=== PATIENT | male | born 1955 | race Caucasian/White ===

== ENCOUNTER 2019-05-04 13:08 | Outpatient (CLI) | payer MEDICARE, SELFPAY ==
--- NOTE | 2019-05-04 13:56 | ECHO_ITS ---
Patient Info Name: Ernesto Garvey Age: 63 years : 1955 Gender: Male Ht: 69 in Wt: 199 lbs BSA: 2.12 m2 HR: 82 bpm BP: 145 / 79 mmHg Technical Quality: Good Exam Date: 05/04/2019 2:02 PM Exam Location: [facility] Patient Status: Outpatient Admit Date: 05/04/2019 Staff Ordering Physician: Matthew Castano DO Optician Manager: Monica Renner RDCS Attending Provider: Matthew Castano DO Referring Physician: Eyad HORTON; Exam Type: CA echo doppler color flow Study Info Indications R06.09 - Other forms of dyspnea Complete two-dimensional, color flow and Doppler transthoracic echocardiogram is performed. Summary 1. Left ventricular chamber dimension is normal. 2. Left ventricular systolic function is normal, estimated at 60-65%. 3. Ventricular septum is sigmoid shaped. 4. The left ventricular diastolic function is grade I diastolic dysfunction. 5. E/e' 9 is minimally elevated. 6. Global longitudinal strain is abnormal at -15.9%. 7. Left atrial chamber dimension is mildly enlarged. 8. There is trace mitral valve regurgitation. 9. No pulmonary hypertension, estimated pulmonary arterial systolic pressure is 21 mmHg. Left Ventricle Ventricular septum is sigmoid shaped. E/e' 9 is minimally elevated. Global longitudinal strain is abnormal at -15.9%. Left ventricular chamber dimension is normal. Left ventricular systolic function is normal, estimated at 60-65%. The left ventricular diastolic function is grade I diastolic dysfunction. Right Ventricle Right ventricular chamber dimension is normal. Right ventricular systolic function is normal. Left Atria Left atrial chamber dimension is mildly enlarged. Right Atria Right atrial chamber dimension is normal. Aortic Valve The aortic valve is trileaflet. There is no aortic valve stenosis. There is no aortic valve regurgitation. Pulmonic Valve There is no pulmonic regurgitation. Mitral Valve There is no mitral valve stenosis. There is trace mitral valve regurgitation. Tricuspid Valve There is no tricuspid valve regurgitation. No pulmonary hypertension, estimated pulmonary arterial systolic pressure is 21 mmHg. Pericardium/Pleural There is no pericardial effusion. Inferior Vena Cava Normal inferior vena cava with >50% collapse upon inspiration consistent with normal right atrial pressure, 5 mmHg. Aorta The aortic root size at the sinus of Valsalva is normal. Left Ventricular Outflow Tract Name Value Normal LVOT 2D LVOT Diameter 1.9 cm LVOT Doppler LVOT Peak Velocity 117 cm/s LVOT Peak Gradient 5 mmHg LVOT Mean Gradient 3 mmHg LVOT VTI 23 cm LVOT VTI/AV VTI Ratio 0.7 LVOT Stroke Volume 61 ml LVOT CO 4.7 l/min LVOT CI 2.2 l/min/m2 Pulmonic Valve Name Value Normal ---------
--- NOTE | 2019-05-10 14:42 | WPDPFTINT ---
PFT Interpretation PFT Interpretation: This PFT met all criteria for ATS standards and reproducibility FEV/FVC post bronchodilator 77% FEV1 91% FVC 82% TLC 84% RV 75% RV/TLC 33% DLCO 86% when adjusted for alveolar volume but not adjusted for hemoglobin Flow volume loops showed normal Impression: This is a normal PFT. Clinical correlation is advised.
== END 2019-05-04 13:09 | disposition home or self-care (01) ==
LOC: ANHCARD 13:10
PROVIDERS: PCP Family Medicine; Visit Provider Internal Medicine Cardiovascular Disease
DX: R06.09 Other forms of dyspnea (principal)
CPT/HCPCS: 93306; 94375; 94726; 94729

== ENCOUNTER 2019-05-08 02:47 | Day surgery (SDC) | payer MEDICARE, SELFPAY ==
[2019-05-07 11:14] VITALS: BMI 29.2
[2019-05-08] VITALS (10 sets, daily range): BP systolic 110–146; BP diastolic 51–90; PULSE 64–94; RESP 14–20; TEMP 36.6–36.8; O2SAT 92–100
[2019-05-08 08:52] LABS: Basophils Absolute Auto 0.1 K/mm3 (0.0-0.1); Basophils Percent Auto 0.7 % (0.2-1.2); Eosinophils Absolute Auto 0.5 K/mm3 (0-0.3); Eosinophils Percent Auto 6.2 % (0-4.4); Hematocrit 42.9 % (42.0-52.0); Hemoglobin 14.8 g/dL (14.0-18.0); Immature Granulocyte Absolute 0.04 K/mm3 (0.00-0.031); Immature Granulocyte Percent A 0.5 % (0-0.5); Lymphocytes Absolute Auto 2.03 K/mm3 (0.9-3.2); Lymphocytes Percent Auto 26.8 % (18.3-44.2); Mean Corpuscular HGB Conc 34.5 g/dl (32-36); Mean Corpuscular Hemoglobin 29.9 pg (26-34); Mean Corpuscular Volume 86.7 fl (80-100); Monocytes Absolute Auto 0.6 K/mm3 (0.1-0.6); Monocytes Percent Auto 8.3 % (2.6-8.5); Neutrophils Absolute Auto 4.4 K/mm3 (1.3-6.7); Neutrophils Percent Auto 57.5 % (45.5-73.1); Platelet Count Result 245 k/mm3 (150-375); Red Blood Count 4.95 M/mm3 (4.6-6.20); Red Cell Distribution Width 12.9 % (11.5-14.5); White Blood Count 7.6 K/mm3 (4.5-10.0)
[2019-05-08 09:01] LABS: Prothrombin Time 12.8 Seconds (11.1-14.7)
[2019-05-08 09:05] LABS: Blood Urea Nitrogen 19 mg/dL (9-20); Carbon Dioxide 24 mmol/L (22-30); Chloride 105 mmol/L (98-107); Estimated CRCL calculation 80 ml/min; Estimated Glomerular Filt Rate > 60; Glucose 132 mg/dL (75-110); Sodium 141 mmol/L (137-145)
--- NOTE | 2019-05-08 09:21 | WPDMODSED ---
Moderate Sedation Note-Pt Data Patient Data Diagnosis: Exertional chest pain consistent with angina Abnormal nuclear stress test Diabetes Present Complaint: 64-year-old man with diabetes and dyslipidemia evaluated recently for exertional chest pain which is experiencing for about a year or more. Patient recently apparently brought these symptoms to his physician's attention and noninvasive testing shows an inferolateral perfusion defect compatible with a previous infarction as well as some ischemia. Procedure to be performed/Plan: Left heart catheterization Allergies Allergy/AdvReac Type Severity Reaction Status Date / Time No Known Drug Allergies Allergy Unknown Unknown Unverified 03/31/19 08:59 Home Medications Medication Instructions Recorded Confirmed Type atorvastatin 03/31/19 04/22/19 History fenofibrate micronized mg 03/31/19 04/22/19 History flu vac [id number] 36mos up(PF) IM 03/31/19 04/22/19 History [Afluria Qd (3yr up)(PF)] hydrocodone-acetaminophen tablet 03/31/19 04/22/19 History insulin lispro 100 unit/mL 1 unit SUB-Q ONCE 04/01/19 04/22/19 History subcutaneous pen clopidogrel 75 mg tablet 75 mg PO DAILY #90 tablet 04/08/19 04/22/19 Rx empagliflozin 25 mg tablet 25 mg PO QAM #30 tablet 04/08/19 04/22/19 Rx insulin glargine 100 unit/mL (3 10 unit SUBCUT .QHS #3 ml 04/08/19 04/22/19 Rx mL) subcutaneous pen aspirin 81 mg tablet,delayed 81 mg PO DAILY 04/22/19 04/22/19 History release lisinopril 10 mg tablet 10 mg PO DAILY #90 tablet 04/29/19 Rx Current Medications: Active Medications Sodium Chloride (Normal Saline Iv) 500 mls @ 100 mls/hr IV CONT .Q5H TY Sedation/Anesthesia: No previous sedation/anesthesia problems (including family history). [facility] Past Medical History Medical History (Updated 04/22/19 @ 11:36 by Matthew Castano DO) Arthritis Chronic pain disorder CVA (cerebral vascular accident) Diabetes mellitus Diabetic polyneuropathy associated with type 2 diabetes mellitus DISH (diffuse idiopathic skeletal hyperostosis) 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) hypertension alf (current) use of insulin Mixed hyperlipidemia Peripheral neuropathy Pneumonia Psoriasis Rotator cuff arthropathy of right shoulder Rotator cuff tear, right UTI (urinary tract infection) Social History Social History Smoking status: Former smoker Tobacco type: cigarettes Second hand tobacco smoke exposure: No Smoking end date: 03/18/94 Alcohol intake: never Substance use: never Substance use type: does not use Gender identity (if verbalized by the patient): Male Mod Sed Physical Exam Physical Exam Pre Procedural Exam: Normal: Neck, Throat, Airway, Lungs, Heart Size, Heart Rate, Heart Rhythm, Neuro Exam and Extremities and Variation: Appearance (White male appearing somewhat older than his stated age with a long unkempt nation) Hours since solid foods: 12 Hours since liquid intake: 12 Internal Medicine - PN: Obj Da Vital Signs Vital Signs: Vital Signs - 24 hr 05/08/19 08:52 Temperature 36.8 C Pulse Rate 80 Respiratory Rate 14 Blood Pressure 132/90 Pulse Oximetry 100 Intake/Output Intake/Output: Intake & Output 05/05/19 05/06/19 05/07/19 05/08/19 23:59 23:59 23:59 23:59 Intake Total 0 Output Total 0 Balance 0 Meds/Results Medications: Active Medications Generic Name Dose Route Start Last Admin Trade Name Freq PRN Reason Stop Dose Admin Sodium Chloride 500 mls @ 100 mls/hr 05/08/19 06:00 Normal Saline Iv IV CONT .Q5H TY Labs CBC & Chem 7: 05/08/19 08:43 05/08/19 08:43 Labs: Laboratory Results - last 24 hr 05/08/19 05/08/19 05/08/19 08:43 08:43 08:43 WBC 7.6 RBC 4.95 Hgb 14.8 Hct 42.9 MCV 86.7 MCH 29.9 MCHC 34.5 RDW 12.9 Plt Count 245 MPV 10.0 Immature Gran % (Auto) 0.5 Neut % (Auto) 57.5 Lymph % (Auto)
--- NOTE | 2019-05-08 10:20 | WPDCARDPROC ---
Cardiac Cath Procedure Note Date of procedure:: 05/08/19 Performing physician:: Gibran Franklin MD Indication:: Exertional symptoms compatible with and typical of angina, symptoms appear to be chronic abnormal nuclear stress test diabetes Brief clinical history:: 64-year-old diabetic patient with a chronic history of exertional chest pain which is relatively typical of an suggestive of angina. He has had the symptoms for at least 1-2 years by his history. The patient had a outpatient nuclear stress test suggesting evidence of a previous inferior infarction as well as some inferolateral ischemia. In this setting angiography was recommended Procedure Procedure performed:: left heart catheterization with left ventriculography and coronary angiography coronary IFR determination Angio-Seal to right femoral artery Sedation/Medication given:: fentanyl 50 mg Versed 2 mg case start time 9:43 a.m. case end time 10:15 a.m. sedation provided by Abel Michaud RN, trained observer Access site:: right femoral artery Estimated blood loss:: 20-30 cc Procedure note:: patient was brought to the cardiac catheterization lab in the postabsorptive state the right femoral triangle was prepared and draped in the usual fashion. Anesthesia was provided with 1% lidocaine infiltrated locally. Using the modified Seldinger technique a 5 [place] sheath was placed into the common femoral artery and left heart catheterization was then carried out. A 5 [place] angle pigtail catheter was used to document left-sided hemodynamics and to injected LV g in the GRAY projection. Following this I used a standard 5 [place] FL4 catheter to inject the left coronary artery and a JR4 catheter to inject the right coronary artery. Following this the cineangiograms were reviewed and I recommended performing a coronary IFR determination because of Left main disease of uncertain significance. Findings:: Central aortic pressure is 1 for 48 or end-diastolic pressure 14 there is no gradient on pullback across the aortic valve. Left ventricle is modestly enlarged there is a discrete segment of akinesis in the mid portion of the inferior wall the remainder of the LV contracts well global ejection fraction of 50-55% the left main coronary artery is large in caliber there is a stenosis in the distal aspect of the left main at the LAD/circumflex bifurcation. In most views this stenosis appears to be 40-50% and not likely to be flow limiting. The LAD is a howfosho-mx-nnezu caliber artery extending down to around the apex the LAD itself is mild atherosclerotic irregularities but no apparent flow-limiting lesions. There is a small severely diseased high diagonal branch with 90-95% diffuse stenosis. Circumflex is a large caliber vessel which has ostial stenosis that appears to be somewhat hazy extending from the distal left main disease this appears to be probably a 70% ostial circumflex stenosis angiographically. The major marginal branch is a bifurcating vessel with 90-95% diffuse stenosis in both vessels. There is a distal posterior circumflex branch after this which is free of significant lesions. There is left to right collateral filling seen to the RPDA. The right coronary artery is medium in caliber and appears to have been dominant to the posterior circulation the right coronary artery is 100% chronically occluded in the 2nd portion. As detailed above the RPDA does receive [id number]-[id number] collateral filling. Following completion of angiography and review of the cineangiograms I elected to measure IFR in the LAD because of the left main disease. IFR measured 0.80 Assessment and Plan Additional Plan 64-year-old gentleman with diabetes and chronic exertional angina. Angiographically today found to have severe multivessel coronary disease with angiographically moderate left main disease which is clearly flow limiting by coronary IFR determination. 90% diffuse stenosis in a high d
--- NOTE | 2019-05-08 14:33 | SUR.PHASEII ---
1415 Patient ambulated to bathroom and then to the chair. no signs of bleeding or hematoma noted, will continue to monitor.
--- NOTE | 2019-05-08 15:40 | SUR.PHASEII ---
1530-pt given D/C orders and instructions. Questions answered and verbalized understanding. Given Angioseal information and CD for surgery consult. Groin soft and non-tender, no evidence of bleeding or hematoma noted. Weak right pedal pulse noted, unchanged from before the procedure. Taken via wheelchair to waiting vehicle. No distress noted or verbalized at time of departure.
== END 2019-05-08 15:30 | disposition home or self-care (01) ==
PROVIDERS: PCP Family Medicine; Visit Provider Specialist
PROC: 4A023N7 Measurement of Cardiac Sampling and Pressure, Left Heart, Percutaneous Approach (ICD-10-PCS; CPT 93452; principal; 2019-05-08 10:00)
PROC: 4A033BC Measurement of Arterial Pressure, Coronary, Percutaneous Approach (ICD-10-PCS; CPT 93571; 2019-05-08 10:00)
DX: I25.10 Atherosclerotic heart disease of native coronary artery without angina pectoris (principal); R94.39 Abnormal result of other cardiovascular function study; R07.89 Other chest pain; I10 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) hypertension; E11.40 Type 2 diabetes mellitus with diabetic neuropathy, unspecified; E78.2 Mixed hyperlipidemia; M48.10 Ankylosing hyperostosis [Forestier], site unspecified; M19.90 Unspecified osteoarthritis, unspecified site; Z79.4 Long term (current) use of insulin; Z86.73 Personal history of transient ischemic attack (TIA), and cerebral infarction without residual deficits; Z87.891 Personal history of nicotine dependence; Z79.02 Long term (current) use of antithrombotics/antiplatelets; Z79.82 Long term (current) use of aspirin
CPT/HCPCS: 36415; 80048; 85025; 85610; 93458; 93571; C1760; C1769; C1887; C1894; G0269; J0583; J1644; J2250; J3010; J7040

== ENCOUNTER 2019-06-02 12:12 | Outpatient (CLI) | payer MEDICARE, SELFPAY ==
--- NOTE | ~2019-06-02 | CT_ITS ---
EXAMINATION: CT chest wo con DATE: 06/02/2019 13:02 INDICATION: Coronary artery disease TECHNIQUE: Computed tomography (CT) of the chest was performed without intravenous contrast. The dose -length product (DLP) was 356.47 mGy-cm. 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 COMPARISON: 11/14/2015 FINDINGS: The thoracic aorta is unremarkable within the limitations of noncontrast examination. Coron craig artery atherosclerosis is noted. The heart size is normal. There is mild dependent atelectasis. T he lungs are free of focal airspace opacities. There are no pathologically enlarged thoracic lymph no lindy. Calcified pulmonary nodules are consistent with old granulomatous disease. There are bridging os teophytes at multiple levels in the spine, consistent with diffuse idiopathic skeletal hyperostosis ( DISH). IMPRESSION: 1. Calcified coronary artery atherosclerosis. Reviewed, dictated and finalized at location A.
--- NOTE | ~2019-06-02 | US_ITS ---
EXAMINATION: US carotid duplex BI DATE: 06/02/2019 13:05 INDICATION: Preoperative evaluation. Right common carotid atherosclerosis. Coronary artery disease. TECHNIQUE: Grayscale, color Doppler, and pulsed Doppler images of the cervical carotid arteries were obtained. The degree of vessel stenosis is placed in one of the following categories: normal, <50%, 5 0-69%, >=70% but less than near-occlusion, near-occlusion, or total occlusion. Note that percent sten osis relative to normal distal artery lumen diameter is indirectly measured from velocity measurement s as described by Gonzales, et al. Radiology 2003; 229:340-346. COMPARISON: None. FINDINGS: RIGHT: The right common carotid artery (CCA) peak systolic velocity (PSV) is 98 cm/s. The right internal car otid artery (ICA) PSV is 283 cm/s. The right ICA end-diastolic velocity (EDV) is 112 cm/s. The right ICA/CCA PSV ratio is 2.9. Grayscale and color Doppler images yield an estimate of >=70% (but less dion n near occlusion) diameter reduction from plaque in the ICA. The external carotid artery (ECA) PSV is 130 cm/s. There is antegrade flow in the right vertebral artery. LEFT: The left CCA PSV is 164 cm/s. The left ICA PSV is 120 cm/s. The left ICA EDV is 44 cm/s. The left ICA /CCA PSV ratio is 0.7. Grayscale and color Doppler images yield an estimate of <50% diameter reductio n from plaque in the ICA. The ECA PSV is 143 cm/s. There is antegrade flow in the left vertebral jenniffer ry. IMPRESSION: 1. >=70% (but less than near occlusion) stenosis in the right internal carotid artery. 2. <50% stenosis in the left internal carotid artery. Reviewed, dictated and finalized at location A.
== END 2019-06-02 12:13 | disposition home or self-care (01) ==
PROVIDERS: PCP Family Medicine
DX: I25.118 Atherosclerotic heart disease of native coronary artery with other forms of angina pectoris (principal); I25.10 Atherosclerotic heart disease of native coronary artery without angina pectoris; I65.23 Occlusion and stenosis of bilateral carotid arteries
CPT/HCPCS: 71250; 93880

== ENCOUNTER 2019-10-08 14:03 | Outpatient (CLI) | payer MEDICARE, SELFPAY ==
[2019-10-08 14:46] LABS: Basophils Percent Auto 0.4 % (0.2-1.2); Eosinophils Absolute Auto 0.3 K/mm3 (0-0.3); Eosinophils Percent Auto 2.9 % (0-4.4); Hematocrit 46.2 % (42.0-52.0); Hemoglobin 15.6 g/dL (14.0-18.0); Immature Granulocyte Absolute 0.04 K/mm3 (0.00-0.031); Immature Granulocyte Percent A 0.4 % (0-0.5); Lymphocytes Absolute Auto 2.54 K/mm3 (0.9-3.2); Lymphocytes Percent Auto 26.7 % (18.3-44.2); Mean Corpuscular HGB Conc 33.8 g/dl (32-36); Mean Corpuscular Hemoglobin 29.7 pg (26-34); Mean Platelet Volume 9.8 fl (7.4-10.4); Monocytes Absolute Auto 0.8 K/mm3 (0.1-0.6); Monocytes Percent Auto 8.8 % (2.6-8.5); Neutrophils Absolute Auto 5.8 K/mm3 (1.3-6.7); Neutrophils Percent Auto 60.8 % (45.5-73.1); Platelet Count Result 249 k/mm3 (150-375); Red Blood Count 5.25 M/mm3 (4.6-6.20); Red Cell Distribution Width 12.8 % (11.5-14.5); White Blood Count 9.5 K/mm3 (4.5-10.0)
[2019-10-08 14:58] LABS: Alanine Aminotransferase 35 U/L (4-50); Albumin Level 4.6 g/dL (3.5-5.1); Alkaline Phosphatase 85 U/L (38-126); Anion Gap 15.2 mmol/L (7-16); Aspartate Amino Transferase 35 U/L (17-59); Bilirubin,Total 0.7 mg/dL (0.2-1.3); Blood Urea Nitrogen 23 mg/dL (9-20); Calcium 9.2 mg/dL (8.4-10.2); Carbon Dioxide 23 mmol/L (22-30); Chloride 105 mmol/L (98-107); Estimated Glomerular Filt Rate > 60; Glucose 106 mg/dL (75-110); Potassium 4.2 mmol/L (3.4-5.0); Sodium 139 mmol/L (137-145)
== END 2019-10-08 14:04 | disposition home or self-care (01) ==
LOC: ANHLAB 14:05
PROVIDERS: PCP Family Medicine; Visit Provider Physician Assistant
DX: E78.2 Mixed hyperlipidemia (principal); I10 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) hypertension; E11.42 Type 2 diabetes mellitus with diabetic polyneuropathy; Z79.4 Long term (current) use of insulin
CPT/HCPCS: 36415; 80053; 83036; 85025

== ENCOUNTER 2020-05-12 06:40 | Outpatient (CLI) | payer MEDICARE, SELFPAY ==
[2020-05-12 07:25] LABS: Basophils Percent Auto 0.5 % (0.2-1.2); Eosinophils Absolute Auto 0.4 K/mm3 (0-0.3); Eosinophils Percent Auto 5.5 % (0-4.4); Hematocrit 41.3 % (42.0-52.0); Hemoglobin 14.3 g/dL (14.0-18.0); Immature Granulocyte Absolute 0.04 K/mm3 (0.00-0.031); Immature Granulocyte Percent A 0.5 % (0-0.5); Lymphocytes Absolute Auto 2.22 K/mm3 (0.9-3.2); Lymphocytes Percent Auto 30.3 % (18.3-44.2); Mean Corpuscular HGB Conc 34.6 g/dl (32-36); Mean Corpuscular Hemoglobin 30.6 pg (26-34); Mean Corpuscular Volume 88.4 fl (80-100); Monocytes Absolute Auto 0.7 K/mm3 (0.1-0.6); Monocytes Percent Auto 9.4 % (2.6-8.5); Neutrophils Absolute Auto 3.9 K/mm3 (1.3-6.7); Neutrophils Percent Auto 53.8 % (45.5-73.1); Platelet Count Result 246 k/mm3 (150-375); Red Blood Count 4.67 M/mm3 (4.6-6.20); Red Cell Distribution Width 12.8 % (11.5-14.5); White Blood Count 7.3 K/mm3 (4.5-10.0)
[2020-05-12 07:38] LABS: Alanine Aminotransferase 33 U/L (4-50); Albumin Level 4.1 g/dL (3.5-5.1); Alkaline Phosphatase 96 U/L (38-126); Anion Gap 8 mmol/L (8-16); Aspartate Amino Transferase 31 U/L (17-59); Bilirubin,Total 0.6 mg/dL (0.2-1.3); Blood Urea Nitrogen 16 mg/dL (9-20); Calcium 9.1 mg/dL (8.4-10.2); Carbon Dioxide 26 mmol/L (22-30); Chloride 107 mmol/L (98-107); Cholesterol 152 mg/dL (0-200); Estimated Glomerular Filt Rate > 60; Glucose 185 mg/dL (75-110); HDL Direct 47 mg/dL; Potassium 4.4 mmol/L (3.4-5.0); Sodium 141 mmol/L (137-145); Triglycerides 142 mg/dL (<150)
[2020-05-12 07:49] LABS: LDL Cholesterol Direct 80 mg/dL
[2020-05-12 08:05] LABS: Hemoglobin A1C 8.2 % (<5.7)
== END 2020-05-12 06:41 | disposition home or self-care (01) ==
PROVIDERS: PCP Family Medicine; Visit Provider Physician Assistant
DX: E11.42 Type 2 diabetes mellitus with diabetic polyneuropathy (principal); I10 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) hypertension; E78.2 Mixed hyperlipidemia
CPT/HCPCS: 36415; 80053; 80061; 83036; 85025

== ENCOUNTER 2020-08-12 14:20 | Outpatient (CLI) | payer MEDICARE, SELFPAY ==
[2020-08-12 14:48] LABS: Alanine Aminotransferase 29 U/L (4-50); Albumin Level 4.6 g/dL (3.5-5.1); Alkaline Phosphatase 101 U/L (38-126); Anion Gap 9 mmol/L (8-16); Aspartate Amino Transferase 34 U/L (17-59); Bilirubin,Total 0.4 mg/dL (0.2-1.3); Blood Urea Nitrogen 22 mg/dL (9-20); Calcium 9.5 mg/dL (8.4-10.2); Carbon Dioxide 28 mmol/L (22-30); Chloride 106 mmol/L (98-107); Estimated Glomerular Filt Rate > 60; Glucose 175 mg/dL (75-110); Potassium 4.7 mmol/L (3.4-5.0); Sodium 143 mmol/L (137-145)
[2020-08-12 15:11] LABS: Creatinine Urine 60.1 mg/dL
[2020-08-12 15:12] LABS: Hemoglobin A1C 8.4 % (<5.7)
[2020-08-12 15:16] LABS: MALB Creatinine Ratio 12.1 mg/g (0-30); Microalbumin Urine Random 7.3 mg/L (0-16.7)
== END 2020-08-12 14:21 | disposition home or self-care (01) ==
PROVIDERS: PCP Family Medicine; Visit Provider Family Medicine
DX: E11.9 Type 2 diabetes mellitus without complications (principal); I10 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) hypertension
CPT/HCPCS: 36415; 80053; 82043; 83036

== ENCOUNTER 2020-10-18 14:50 | Emergency (ER) | payer MEDICARE, SELFPAY ==
[2020-10-18 14:52] VITALS: BP 149/67; PULSE 71; RESP 18; TEMP 36.9; O2SAT 99
--- NOTE | 2020-10-18 15:54 | PC.NURSE ---
pt's spouse ambulated to intake desk from outside asking how much longer will it be until he is seen.Informed her there were a still people in front of him. Spouse stated she was going to take him to [facility]. Pt ambulated out of ED with steady gait. .
== END 2020-10-18 15:54 | disposition left against medical advice (07) ==
LOC: ANHED 16:10
PROVIDERS: PCP Family Medicine
DX: T23.052A Burn of unspecified degree of left palm, initial encounter (principal)
CPT/HCPCS: 99199

== ENCOUNTER 2020-10-18 17:33 | Emergency (ER) | payer MEDICARE, SELFPAY ==
[2020-10-18 17:47] VITALS: BP 136/67; PULSE 77; RESP 20; TEMP 37.2; O2SAT 99
--- NOTE | 2020-10-18 17:49 | ED.BURNSMOKE ---
HPI - Burn/Smoke Inhalation General Chief complaint: Burn/Smoke Inhalation Stated complaint: burnt hand Source: patient and RN notes reviewed Mode of arrival: ambulatory Limitations: no limitations History of Present Illness HPI Narrative: Patient accidentally burned his left hand on muffler from a lawnmower. He put some ice on it. Complaint: burn Onset (ago): hour(s) (4) Smoke Inhalation: none Place: home Location - Extremities: Left: hand Severity: mild Associated symptoms: denies other symptoms Related Data Home Medications Medication Instructions Recorded Confirmed aspirin 81 mg tablet,delayed 81 mg PO DAILY 04/22/19 10/18/20 release Allergies Allergy/AdvReac Type Severity Reaction Status Date / Time No Known Drug Allergies Allergy Unknown Unknown Verified 10/18/20 14:56 Review of Systems Review of Systems: All systems reviewed & are unremarkable except as noted in HPI and below Constitutional: Constitutional: Denies chills and Denies fever(s) PMFSH Past Medical History Medical History (Updated 10/18/20 @ 18:00 by Richard Kong MD) Arthritis Chronic pain disorder CVA (cerebral vascular accident) Diabetes mellitus Diabetic polyneuropathy associated with type 2 diabetes mellitus DISH (diffuse idiopathic skeletal hyperostosis) 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 Mixed hyperlipidemia Peripheral neuropathy Pneumonia Psoriasis Rotator cuff arthropathy of right shoulder Rotator cuff tear, right UTI (urinary tract infection) Surgical History Surgical History (Updated 10/18/20 @ 17:58 by Richard Kong MD) H/O rotator cuff surgery right History of cardiac catheterization History of carpal tunnel release History of mandibular surgery Family History Family History Father Patient's father is Social History Social History Social History: Smoking packs per day: 3 Smoking cigarettes per day: 60.0 Years smoked: 20 Smoking pack-years: 60.00 Smoking status: Former smoker Tobacco type: cigarettes Second hand tobacco smoke exposure: No Smoking end date: 03/18/94 Alcohol intake: never Substance use: never Substance use type: does not use Gender identity (if verbalized by the patient): Male Exam Const: General: healthy appearing, no acute distress and alert Nutritional Appearance: well nourished and obese centrally obese Orientation/consciousness: patient oriented x3 HENMT: Head: normal to inspection Ears: external ears normal Face and sinus: normal facial exam Eyes: Conjunctivae: conjunctivae normal Pupils: Equal, round and reactive pupils present EOM: EOMs intact bilaterally Neck: Neck: normal visual inspection Resp: Effort & Inspection: normal respiratory effort Auscultation: clear to auscultation bilaterally Cardio: Rate: regular rate Rhythm: regular rhythm GI: GI Palp: Yes Soft to palpation and No Tenderness to palpation present (GI) Auscultation: normal bowel sounds Back/Spine/Pelvis: Cervical Spine: cervical ROM normal Thoracic/Lumbar Spine: thoraco-lumbar ROM normal Skin: Wounds: wounds noted (1st degree byrd on 3rd, 4th and 5th finger tips) 2nd degree to left palm size (4 X 3 cm), margins well defined and other (Fluid filled blister) Neuro: General: patient oriented x3, moves all extremities, no meningeal signs and no focal motor deficits Speech: normal speech Gait exam (Neuro): Normal gait present Extrem: General: normal to inspection and no clubbing, cyanosis or edema Psych: Appearance: grossly normal and well kempt Mental Status: mental status grossly normal Affect: normal affect Attitude: cooperative Thought content: Yes Normal thought content present Discharge Plan Discharge Clinical Impression: Second degree burn of back of left hand Qualifiers:
[2020-10-18 18:05] VITALS: BP 133/75; PULSE 75; RESP 20; O2SAT 98
[2020-10-18] MEDS: SILVER SULFADIAZINE 1% CR 50 GM JAR (*BKC) 1 APPLIC TOPICAL (18:05)
== END 2020-10-18 18:10 | disposition home or self-care (01) ==
PROVIDERS: Emergency Provider Emergency Medicine; PCP Family Medicine
DX: T23.262A Burn of second degree of back of left hand, initial encounter (principal); X19.XXXA Contact with other heat and hot substances, initial encounter
CPT/HCPCS: 16020; 99283; A9270

== ENCOUNTER 2020-12-28 00:59 | Day surgery (SDC) | payer MEDICARE, SELFPAY ==
[2020-12-28] VITALS (10 sets, daily range): BP systolic 134–171; BP diastolic 64–94; PULSE 58–75; RESP 12–16; TEMP 36.4–36.6; O2SAT 92–99; BMI 28.2
--- NOTE | 2020-12-28 08:40 | SUR.PREOP ---
ARRIVES TO [facility] FOR SCHEDULED LHC W/ DR. MADRIGAL. DENIES CP, BUT REPORTS TOSHIA. ORIENTED TO ROOM, PLAN OF CARE, PROCEDURE. QUESTIONS ANSWERED. VOICED UNDERSTANDING. VS OBTAINED, IV STARTED, LABS SENT, SKIN PREPPED, CONSENT SIGNED. WILL MONITOR.
[2020-12-28 09:09] LABS: Basophils Percent Auto 0.6 % (0.2-1.2); Eosinophils Absolute Auto 0.4 K/mm3 (0-0.3); Hematocrit 40.9 % (42.0-52.0); Hemoglobin 14.2 g/dL (14.0-18.0); Immature Granulocyte Absolute 0.02 K/mm3 (0.00-0.031); Immature Granulocyte Percent A 0.3 % (0-0.5); Lymphocytes Absolute Auto 2.18 K/mm3 (0.9-3.2); Lymphocytes Percent Auto 30.2 % (18.3-44.2); Mean Corpuscular HGB Conc 34.7 g/dl (32-36); Mean Corpuscular Hemoglobin 30.7 pg (26-34); Mean Corpuscular Volume 88.3 fl (80-100); Mean Platelet Volume 9.7 fl (7.4-10.4); Monocytes Absolute Auto 0.7 K/mm3 (0.1-0.6); Monocytes Percent Auto 9.7 % (2.6-8.5); Neutrophils Absolute Auto 3.8 K/mm3 (1.3-6.7); Neutrophils Percent Auto 53.2 % (45.5-73.1); Platelet Count Result 250 k/mm3 (150-375); Red Blood Count 4.63 M/mm3 (4.6-6.20); Red Cell Distribution Width 12.6 % (11.5-14.5); White Blood Count 7.2 K/mm3 (4.5-10.0)
[2020-12-28 09:20] LABS: INR 0.9; Prothrombin Time 12.2 Seconds (11.1-14.7)
[2020-12-28 09:23] LABS: Anion Gap 6 mmol/L (8-16); Blood Urea Nitrogen 17 mg/dL (9-20); Carbon Dioxide 27 mmol/L (22-30); Chloride 106 mmol/L (98-107); Estimated CRCL calculation 71 ml/min; Estimated Glomerular Filt Rate > 60; Glucose 197 mg/dL (65-110); Potassium 4.5 mmol/L (3.4-5.0); Sodium 139 mmol/L (137-145)
--- NOTE | 2020-12-28 09:54 | SUR.PREOP ---
DR. MADRIGAL HERE TO SEE PT.
--- NOTE | 2020-12-28 10:06 | WPDMODSED ---
Moderate Sedation Note-Pt Data Patient Data Diagnosis: Multivessel coronary artery disease with anticipation for surgical referral previous angiogram was not recent and so a follow-up exam has been requested Present Complaint: exertional dyspnea/chest pain Procedure to be performed/Plan: left heart catheterization Allergies Allergy/AdvReac Type Severity Reaction Status Date / Time No Known Drug Allergies Allergy Unknown Unknown Verified 12/28/20 09:40 Home Medications Medication Instructions Recorded Confirmed Type aspirin 81 mg tablet,delayed 81 mg PO DAILY 04/22/19 12/28/20 History release atorvastatin 40 mg tablet 40 mg PO QPM #90 tablet 05/13/20 12/28/20 Rx insulin lispro 100 unit/mL 5 unit SUB-Q TID #15 ml 05/19/20 12/28/20 Rx subcutaneous pen empagliflozin 25 mg tablet 25 mg PO QAM #90 tablet 10/06/20 12/28/20 Rx fenofibrate 160 mg tablet 160 mg PO DAILY #90 tablet 11/15/20 12/28/20 Rx carvedilol 6.25 mg tablet 6.25 mg PO Q12H #60 tablet 12/01/20 12/28/20 Rx pen needle, diabetic 32 gauge x #100 each 12/12/20 12/28/20 Rx 5/32 hydrocodone 10 mg-acetaminophen 1 tablet PO Q6H PRN #115 tablet 12/13/20 12/28/20 Rx 325 mg tablet insulin glargine 100 unit/mL (3 See Rx Instructions .ROUTE 12/19/20 12/28/20 Rx mL) subcutaneous pen .COMPLEX #3 ml Current Medications: Active Medications Sodium Chloride (Normal Saline Iv) 500 mls @ 100 mls/hr IV CONT .Q5H TY Sedation/Anesthesia: No previous sedation/anesthesia problems (including family history). [facility] Past Medical History Medical History Arthritis Chronic pain disorder CVA (cerebral vascular accident) Diabetes mellitus Diabetic polyneuropathy associated with type 2 diabetes mellitus DISH (diffuse idiopathic skeletal hyperostosis) 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) hypertension assisted (current) use of insulin Mixed hyperlipidemia Peripheral neuropathy Pneumonia Psoriasis Rotator cuff arthropathy of right shoulder Rotator cuff tear, right UTI (urinary tract infection) Surgical History Surgical History H/O rotator cuff surgery right History of cardiac catheterization History of carpal tunnel release History of mandibular surgery Family History Family History Father Patient's father is Social History Social History Social History: Smoking packs per day: 3 Smoking cigarettes per day: 60.0 Years smoked: 20 Smoking pack-years: 60.00 Smoking status: Former smoker Tobacco type: cigarettes Second hand tobacco smoke exposure: No Smoking end date: 03/18/94 Alcohol intake: never Substance use: never Substance use type: does not use Gender identity (if verbalized by the patient): Male Sexual Orientation (if Verbalized by the Patient): Straight or Heterosexual Mod Sed Physical Exam Physical Exam Pre Procedural Exam: Normal: Neck, Throat, Airway, Lungs, Heart Size, Heart Rate, Heart Rhythm, Neuro Exam and Extremities and Variation: Appearance ( pleasant somewhat unkempt white male no apparent distress) Hours since solid foods: 12 Hours since liquid intake: 12 Mallampati Classification: class II Internal Medicine - PN: Obj Da Vital Signs Vital Signs: Vital Signs - 24 hr 12/28/20 09:07 Temperature 36.6 C Pulse Rate 67 Respiratory Rate 12 Blood Pressure 171/78 H Pulse Oximetry 99 Meds/Results Medications: Active Medications Generic Name Dose Route Start Last Admin Trade Name Freq PRN Reason Stop Dose Admin Sodium Chloride 500 mls @ 100 mls/hr 12/28/20 08:30 Normal Saline Iv IV CONT .Q5H [facility] Labs CBC & Chem 7: 12/28/20 08:57 12/28/20 08:57 Labs: Laboratory Results - last 24 hr 12/28/20 12/28/20 12/28/20
--- NOTE | 2020-12-28 10:42 | WPDCARDPROC ---
Cardiac Cath Procedure Note Date of procedure:: 12/28/20 Performing physician:: Gibran Franklin MD Indication:: follow-up coronary angiogram prior to cardiothoracic surgery consultation Brief clinical history:: this is a 65-year-old man who was found to have multivessel coronary disease with significant distal left main involvement in April of 2019. Because of the coronavirus pandemic surgery consultation did not occur and is now being reconsidered. 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 case end time 10:33 a.m. Access site:: right femoral artery Estimated blood loss:: 10-15 cc Procedure note:: patient was brought to the cardiac catheterization lab in the postabsorptive state the right femoral triangle was prepared and draped in the usual sterile fashion. Anesthesia was provided with 1% lidocaine infiltrated locally. Using the modified Seldinger technique a 5 Canadian sheath was placed into the right common femoral artery. After this left heart catheterization was carried out. I used a 5 Canadian angled pigtail catheter to measure left-sided hemodynamics and to inject LV g in the GRAY projection. After this I used standard 5 Canadian JR4 catheter to engage and inject the right coronary artery and then a 5 Canadian FL4 catheter to engage and inject the left coronary artery. The cineangiograms were reviewed and the case was terminated. An angiogram was done of the femoral artery through the sheath after which a 6 Canadian Angio-Seal device was deployed with good hemostatic result. Procedure was well tolerated without complications. Patient was taken to the holding area there was no evidence of a groin hematoma upon leaving the laboratory tester Findings:: hemodynamics: Central aortic pressure is 1 92 over 80 left ventricle 192 over 2 end-diastolic pressure 18 there is no gradient on pullback across the aortic valve. Left ventricle: the LV appears to be normal in size the inferior wall is akinetic the remainder of the LV contracts well the global ejection fraction I would visually estimate to be 45%. The left main coronary artery is medium in caliber there is moderate stenosis in the distal aspect of the left main angiographically this appears to be about 50-60% distal left main stenosis. The LAD is a moderate caliber artery extending down to around the apex there is ostial stenosis of the LAD extending from the left main plaque described above. This is best seen in the GRAY cranial projection. Ostium of the LAD appears to be 60-70% stenosis. There is a high diagonal branch which is small to medium in caliber that has 80-90% narrowing. The apical terminal segment of the LAD has an 80-90% stenosis. Circumflex is a medium caliber artery giving rise to a bifurcating OM branch and a posterior branch. The ostium of the circumflex also has moderate stenosis of about 70% again seen best in the GRAY cranial projection and extending from the distal left main plaque. The OM branch has 90% stenosis in the proximal of the 2 segments and 99% stenosis in the distal of the 2 segments. The right coronary artery is moderate caliber and dominant to the posterior circulation. 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 Conclusion:: 1. Coronary artery disease with chronic total occlusion of the mid right coronary artery which does receive [id number] collateral filling. Angiographically unchanged from last year 2. angiographically [id number] distal left main disease which is angiographically unchanged co
== END 2020-12-28 13:53 | disposition home or self-care (01) ==
PROVIDERS: PCP Family Medicine; Visit Provider Specialist
PROC: 4A023N7 Measurement of Cardiac Sampling and Pressure, Left Heart, Percutaneous Approach (ICD-10-PCS; CPT 93452; principal; 2020-12-28 10:00)
DX: Z01.810 Encounter for preprocedural cardiovascular examination (principal); I25.10 Atherosclerotic heart disease of native coronary artery without angina pectoris; I10 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) hypertension; E78.2 Mixed hyperlipidemia; E11.42 Type 2 diabetes mellitus with diabetic polyneuropathy; L40.9 Psoriasis, unspecified; M48.10 Ankylosing hyperostosis [Forestier], site unspecified; Z87.891 Personal history of nicotine dependence; Z86.73 Personal history of transient ischemic attack (TIA), and cerebral infarction without residual deficits; Z79.82 Long term (current) use of aspirin; Z79.4 Long term (current) use of insulin; Z79.84 Long term (current) use of oral hypoglycemic drugs
CPT/HCPCS: 36415; 80048; 85025; 85610; 93458; C1760; C1887; C1894; G0269; J1644; J2250; J3010; J7040

== ENCOUNTER 2021-01-13 08:13 | Outpatient (CLI) | payer MEDICARE, SELFPAY ==
[2021-01-13 09:02] LABS: Hemoglobin A1C 8.7 % (<5.7)
[2021-01-13 09:39] LABS: Creatinine Urine 89.2 mg/dL
[2021-01-13 09:43] LABS: Microalbumin Urine Random 7.1 mg/L (0-16.7)
== END 2021-01-13 08:14 | disposition home or self-care (01) ==
PROVIDERS: PCP Family Medicine; Visit Provider Family Medicine
DX: E11.9 Type 2 diabetes mellitus without complications (principal)
CPT/HCPCS: 36415; 82043; 83036

== ENCOUNTER 2021-01-19 14:00 | Outpatient (CLI) | payer MEDICARE, SELFPAY ==
--- NOTE | ~2021-01-19 | US_ITS ---
EXAMINATION: US art doppler w press LE BI DATE: 01/19/2021 15:05 INDICATION: Claudication TECHNIQUE: Segmental pressures and plethysmographic and Doppler waveforms of the brachial and lower e xtremity arteries were obtained. COMPARISON: None. FINDINGS: Right and left brachial artery pressures of 190 mm Hg and 187 mm Hg, respectively, are concordant (no rmal difference <= 30 mmHg). The left high thigh pressure index is 0.97 (normal > 1.2). The right hig h thigh pressure index was unable to be obtained due to inability to occlude the vessel. The right ankle-brachial index (YONG) is 0.99 (normal >= 0.9-1). The right great toe-brachial index (T BI) is 0.54 (normal >= 0.6-0.8). The right lower extremity segmental pressure gradients are normal (n ormal gradients <= 20-30 mmHg between adjacent levels on the same leg or the same levels on the two l egs). Arterial waveforms are triphasic at the right common femoral and superficial femoral artery and biphasic in the more distal arteries of the right lower limb with brisk systolic upstrokes throughou t. The left YONG is at least 0.88 however could be underestimated due to inability to occlude the left po sterior tibial artery. The left TBI is 0.76. The left lower extremity segmental pressure gradients ar e normal. Arterial waveforms are biphasic with brisk systolic upstrokes throughout the arteries of th e left lower limb. IMPRESSION: 1. Marked hypertension with brachial artery pressures of 187 and 190 mmHg. 2. Mild arterial occlusive disease to the bilateral lower limbs with mildly decreased right TBI and m ildly decreased left YONG although the latter could be underestimated due to inability to obtain press ures in the left posterior tibial artery. Reviewed, dictated and finalized at location A. IMPRESSION: 1. Marked hypertension with brachial artery pressures of 187 and 190 mmHg. 2. Mild arterial occlusive disease to the bilateral lower limbs with mildly dec reased right TBI and mildly decreased left YONG although the latter could be und erestimated due to inability to obtain pressures in the left posterior tibial a rtery.
== END 2021-01-19 14:01 | disposition home or self-care (01) ==
LOC: ANHIMG 14:02
PROVIDERS: PCP Family Medicine; Visit Provider Family Medicine
DX: I70.213 Atherosclerosis of native arteries of extremities with intermittent claudication, bilateral legs (principal)
CPT/HCPCS: 93923

== ENCOUNTER 2021-06-04 19:23 | Emergency (ER) | payer MEDICARE, SELFPAY ==
--- NOTE | 2021-06-04 19:30 | ED.WEAKNESS ---
HPI - Weakness General Chief complaint: Dizziness Stated complaint: Recent heart surgery..pale & dizzy Time Seen by Provider: 06/04/21 19:32 Source: patient, family and RN notes reviewed Mode of arrival: ambulatory Limitations: no limitations History of Present Illness Complaint: generalized weakness Onset (ago): hour(s) (10) Duration: intermittent Location: generalized Migration: none Severity: moderate Quality: dull Relieving factors: none Exacerbating factors: none Context: recent surgery ( bypass surgery 19 days ago.) Associated symptoms: other ( Dizzy and states that he seems to be little wobbly when walking) Related Data Home Medications Medication Instructions Recorded Confirmed empagliflozin [Jardiance] 25 mg PO DAILY 06/04/21 06/04/21 insulin lispro [Humalog KwikPen 5 unit SUBCUT TIDWMEAL 06/04/21 06/04/21 Insulin] losartan 25 mg PO DAILY 06/04/21 06/04/21 Allergies Allergy/AdvReac Type Severity Reaction Status Date / Time No Known Drug Allergies Allergy Unknown Unknown Verified 06/04/21 19:50 Review of Systems Review of Systems: All systems reviewed & are unremarkable except as noted in HPI and below Constitutional: Constitutional: Denies chills and Denies fever(s) ENT: Reports dizziness Cardiovascular: Cardiovascular: Denies chest pain and Denies rapid heart rate Respiratory: Respiratory: Denies cough and Denies dyspnea Gastrointestinal: Gastrointestinal: Denies melena, Denies hematochezia, Denies diarrhea, Denies nausea, Denies vomiting and Denies hematemesis Genitourinary: Genitourinary: Denies hematuria, Denies dysuria and Denies urinary frequency PMFSH Past Medical History Medical History Arthritis Chronic pain disorder CVA (cerebral vascular accident) Diabetes mellitus Diabetic polyneuropathy associated with type 2 diabetes mellitus DISH (diffuse idiopathic skeletal hyperostosis) 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) hypertension [facility] (current) use of insulin Mixed hyperlipidemia PAD (peripheral artery disease) Peripheral neuropathy Pneumonia Psoriasis Rotator cuff arthropathy of right shoulder Rotator cuff tear, right UTI (urinary tract infection) Surgical History Surgical History H/O rotator cuff surgery right History of cardiac catheterization History of carpal tunnel release History of mandibular surgery Status post percutaneous transluminal angioplasty (PART TIME) with stent placement right cervical carotid artery Family History Family History Father Patient's father is Social History Social History Social History: Smoking packs per day: 3 Smoking cigarettes per day: 60.0 Years smoked: 20 Smoking pack-years: 60.00 Smoking status: Former smoker Tobacco type: cigarettes Second hand tobacco smoke exposure: No Smoking end date: 03/18/94 Alcohol intake: never Substance use: never Substance use type: does not use Gender identity (if verbalized by the patient): Male Sexual Orientation (if Verbalized by the Patient): Straight or Heterosexual Exam Const: General: no acute distress, alert and ill appearing chronically Nutritional Appearance: well nourished Orientation/consciousness: patient oriented x3 HENMT: Head: normal to inspection Ears: external ears normal Eyes: Conjunctivae: conjunctivae normal Pupils: Equal, round and reactive pupils present EOM: EOMs intact bilaterally Neck: Neck: normal visual inspection Resp: Effort & Inspection: normal respiratory effort Auscultation: clear to auscultation bilaterally Cardio: Rate: regular rate Rhythm: regular rhythm Heart sounds: Murmur heart sound present systolic holo, III/ and at the apex GI: GI Palp: Yes Soft to palpation and No Tenderness to pal
[2021-06-04 19:44] VITALS: BP 167/76; PULSE 70; RESP 18; TEMP 36.3; O2SAT 100
[2021-06-04 20:04] VITALS: PULSE 66
[2021-06-04 20:14] LABS: Basophils Absolute Auto 0.04 K/mm3 (0.00-0.10); Basophils Percent Auto 0.5 % (0.0-1.0); Eosinophils Absolute Auto 0.27 K/mm3 (0.02-0.50); Eosinophils Percent Auto 3.6 % (1.0-6.0); Hematocrit 35.3 % (37.0-46.0); Hemoglobin 11.5 g/dL (12.4-15.3); Immature Granulocyte Absolute 0.03 K/mm3 (0.00-0.00); Immature Granulocyte Percent A 0.4 % (0.0-0.0); Lymphocytes Absolute Auto 1.94 K/mm3 (1.10-4.50); Lymphocytes Percent Auto 25.9 % (18.0-42.0); Mean Corpuscular HGB Conc 32.6 g/dL (32.0-36.0); Mean Corpuscular Hemoglobin 29.8 pg (27.0-31.0); Mean Corpuscular Volume 91.5 fL (78.0-102.0); Mean Platelet Volume 9.4 fl (8.7-11.0); Monocytes Absolute Auto 0.56 K/mm3 (0.10-0.90); Monocytes Percent Auto 7.5 % (2.0-11.0); Neutrophils Absolute Auto 4.7 K/mm3 (1.7-7.2); Neutrophils Percent Auto 62.1 % (50.0-70.0); Platelet Count Result 358 K/mm3 (150-420); Red Blood Count 3.86 M/mm3 (4.70-6.10); Red Cell Distribution Width 13.5 % (11.6-14.4); White Blood Count 7.5 K/mm3 (4.8-10.8)
[2021-06-04 20:22] LABS: Alanine Aminotransferase 21 U/L (16-63); Albumin Level 3.1 g/dL (3.4-5.0); Alkaline Phosphatase 156 U/L (46-116); Anion Gap 11 mmol/L (8-16); Aspartate Amino Transferase 16 U/L (15-37); Bilirubin,Total 0.3 mg/dL (0.00-1.00); Blood Urea Nitrogen 20 mg/dL (7-18); Calcium 8.1 mg/dL (8.5-10.1); Carbon Dioxide 23 mmol/L (21-32); Chloride 103 mmol/L (98-108); Estimated CRCL calculation 55 ml/min; Estimated Glomerular Filt Rate > 60; Glucose 123 mg/dL (70-99); Osmolality Calculated 287 mOsm/kg (285-295); Potassium 4.1 mmol/L (3.5-5.1); Sodium 137 mmol/L (136-145); Total Protein 6.5 g/dL (6.4-8.2)
[2021-06-04 20:23] LABS: Magnesium 2.4 mg/dL (1.8-2.4)
[2021-06-04 20:23] LABS: CRP < 0.5 mg/dL (0.0-0.9)
[2021-06-04 20:35] LABS: Add Urine Microscopic? YES; Appearance Urine Clear (Clear); Bilirubin Urine Negative (Negative); Blood Urine Negative (Negative); Color Urine Light Yellow (Yellow); Glucose Urine UA 3+ (Negative); Ketones Urine Negative (Negative); Leukocyte Esterase Ur Negative LEU/UL (Negative); Nitrate Urine Negative (Negative); Protein Urine Negative (Negative); Urobilinogen Urine 0.2 mg/dL (0.2-1.0)
[2021-06-04 20:40] LABS: RBC Urine None seen /hpf (0-2); Squamous Epithelial Cell Urine None seen /hpf (Few); WBC Urine None seen /hpf (0-3)
[2021-06-04 21:03] VITALS: BP 119/67; PULSE 64; RESP 16; TEMP 36.6; O2SAT 96
== END 2021-06-04 21:04 | disposition home or self-care (01) ==
PROVIDERS: Emergency Provider Emergency Medicine; PCP Family Medicine
DX: R42 Dizziness and giddiness (principal); E11.9 Type 2 diabetes mellitus without complications; I10 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) hypertension; I73.9 Peripheral vascular disease, unspecified; Z87.891 Personal history of nicotine dependence
CPT/HCPCS: 36415; 80053; 81001; 83735; 85025; 86140; 99283

== ENCOUNTER 2021-06-20 07:21 | Outpatient (CLI) | payer MEDICARE, SELFPAY ==
[2021-06-20 07:44] LABS: Basophils Percent Auto 0.5 % (0.2-1.2); Eosinophils Absolute Auto 0.4 K/mm3 (0-0.3); Eosinophils Percent Auto 6.6 % (0-4.4); Hematocrit 39.9 % (42.0-52.0); Hemoglobin 12.5 g/dL (14.0-18.0); Immature Granulocyte Absolute 0.04 K/mm3 (0.00-0.031); Immature Granulocyte Percent A 0.6 % (0-0.5); Lymphocytes Absolute Auto 1.33 K/mm3 (0.9-3.2); Mean Corpuscular HGB Conc 31.3 g/dl (32-36); Mean Corpuscular Hemoglobin 28.9 pg (26-34); Mean Corpuscular Volume 92.4 fl (80-100); Monocytes Absolute Auto 0.6 K/mm3 (0.1-0.6); Monocytes Percent Auto 10.1 % (2.6-8.5); Neutrophils Absolute Auto 3.9 K/mm3 (1.3-6.7); Neutrophils Percent Auto 61.2 % (45.5-73.1); Platelet Count Result 314 k/mm3 (150-375); Red Blood Count 4.32 M/mm3 (4.6-6.20); Red Cell Distribution Width 14.1 % (11.5-14.5); White Blood Count 6.3 K/mm3 (4.5-10.0)
[2021-06-20 07:50] LABS: Alanine Aminotransferase 15 U/L (4-50); Albumin Level 4.1 g/dL (3.5-5.1); Alkaline Phosphatase 97 U/L (38-126); Anion Gap 7 mmol/L (8-16); Aspartate Amino Transferase 31 U/L (17-59); Bilirubin,Total 0.4 mg/dL (0.2-1.3); Blood Urea Nitrogen 19 mg/dL (9-20); Calcium 8.5 mg/dL (8.4-10.2); Carbon Dioxide 26 mmol/L (22-30); Chloride 108 mmol/L (98-107); Estimated Glomerular Filt Rate > 60; Glucose 127 mg/dL (65-110); Potassium 4.2 mmol/L (3.4-5.0); Sodium 141 mmol/L (137-145)
[2021-06-20 07:51] LABS: Hemoglobin A1C 6.5 % (<5.7)
== END 2021-06-20 07:22 | disposition home or self-care (01) ==
PROVIDERS: PCP Family Medicine; Visit Provider Nurse Practitioner Gerontology
DX: I25.10 Atherosclerotic heart disease of native coronary artery without angina pectoris (principal); E78.2 Mixed hyperlipidemia; Z51.81 Encounter for therapeutic drug level monitoring; Z79.4 Long term (current) use of insulin; E11.42 Type 2 diabetes mellitus with diabetic polyneuropathy
CPT/HCPCS: 36415; 80053; 83036; 85025

== ENCOUNTER 2021-08-07 07:15 | Outpatient (RCR) | payer MEDICARE, SELFPAY ==
[2021-07-21 09:11] VITALS: PULSE 83
[2021-07-26 08:15] LABS: Glucose Point of Care 206 mg/dl (65-105)
[2021-07-31 08:20] LABS: Glucose Point of Care 212 mg/dl (65-105)
== END 2021-08-21 07:28 | disposition home or self-care (01) ==
LOC: ANHCPREHAB 07:15
PROVIDERS: PCP Family Medicine; Visit Provider Internal Medicine Cardiovascular Disease
DX: Z95.1 Presence of aortocoronary bypass graft (principal)
CPT/HCPCS: 93798

== ENCOUNTER 2021-09-15 08:15 | Outpatient (CLI) | payer MEDICARE, SELFPAY ==
[2021-09-15 09:30] LABS: Cholesterol 120 mg/dL (0-200); HDL Direct 39 mg/dL; Triglycerides 130 mg/dL (<150)
[2021-09-15 09:41] LABS: LDL Cholesterol Direct 48 mg/dL
== END 2021-09-15 08:16 | disposition home or self-care (01) ==
LOC: ANHLAB 08:21
PROVIDERS: PCP Family Medicine; Visit Provider Internal Medicine Cardiovascular Disease
DX: E78.2 Mixed hyperlipidemia (principal)
CPT/HCPCS: 36415; 80061

== ENCOUNTER 2022-01-09 18:38 | Emergency (ER) | payer MEDICARE, SELFPAY ==
--- NOTE | 2022-01-09 18:45 | ED.EXTPRO ---
HPI - Extremity Problem General Chief complaint: Extremity Problem,Nontraumatic Stated complaint: diabetic, infection in left foot toes Time Seen by Provider: 01/09/22 18:44 Source: patient and RN notes reviewed Mode of arrival: ambulatory Limitations: no limitations History of Present Illness Complaint: extremity pain and extremity swelling Onset (ago): hour(s) (11) Pain Consistency: constant Location: left and toe Quality: aching, dull and constant Relieving factors: nothing Exacerbating factors: nothing Associated symptoms: denies other symptoms Context: other ( type 2 diabetes) Related Data Home Medications Medication Instructions Recorded Confirmed empagliflozin 10 mg tablet 25 mg PO DAILY 06/04/21 01/09/22 (Jardiance) insulin lispro 100 unit/mL 5 unit subcut TIDWMEAL 06/04/21 01/09/22 subcutaneous pen (Humalog KwikPen (U-100) Insulin) aspirin 81 mg tablet 81 mg PO DAILY 07/21/21 01/09/22 Allergies Allergy/AdvReac Type Severity Reaction Status Date / Time No Known Drug Allergies Allergy Unknown Unknown Verified 11/02/21 12:56 Review of Systems Review of Systems: All systems reviewed & are unremarkable except as noted in HPI and below Constitutional: Constitutional: Denies chills and Denies fever(s) PMFSH Past Medical History Medical History Arthritis Chronic pain disorder CVA (cerebral vascular accident) Diabetes mellitus Diabetic polyneuropathy associated with type 2 diabetes mellitus DISH (diffuse idiopathic skeletal hyperostosis) 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) 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 Mixed hyperlipidemia PAD (peripheral artery disease) Peripheral neuropathy Pneumonia Psoriasis Rotator cuff arthropathy of right shoulder Rotator cuff tear, right UTI (urinary tract infection) Surgical History Surgical History H/O rotator cuff surgery right History of cardiac catheterization History of carpal tunnel release History of mandibular surgery Status 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 percutaneous transluminal angioplasty (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) with stent placement right cervical carotid artery Family History Family History Father Patient's father is Acute myocardial infarction Cancer Social History Social History Social History: Smoking packs per day: 3 Smoking cigarettes per day: 60.0 Years smoked: 10 Smoking pack-years: 30.00 Smoking status: Former smoker Tobacco type: cigarettes Second hand tobacco smoke exposure: No Smoking end date: 03/18/94 Alcohol intake: never Substance use: never Substance use type: does not use Gender identity (if verbalized by the patient): Male Sexual Orientation (if Verbalized by the Patient): Straight or Heterosexual Exam Const: General: healthy appearing, no acute distress and alert Nutritional Appearance: well nourished Orientation/consciousness: patient oriented x3 Limitations: no limitations HENMT: Head: normal to inspection Ears: external ears normal Eyes: Conjunctivae: conjunctivae normal Pupils: Equal, round and reactive pupils present EOM: EOMs intact bilaterally Neck: Neck: normal visual inspection Resp: Effort & Inspection: normal respiratory effort Auscultation: clear to auscultation bilaterally Cardio: Rate: regular rate Rhythm: regular rhythm GI: GI Palp: Yes Soft to palpation and No Tenderness to palpation present (GI) Auscultation: normal bowel sounds Back/Spine/Pelvis: Cervical Spine: cervical ROM normal Thoracic/Lumbar Spine: thoraco-lumbar ROM normal Skin: General skin exam: normal color and erythema ( with swelling of the left 4th toe, eschar on the plantar surface toe tip) Neuro: General: patient oriented x3, moves all extremities, no focal motor deficits and CN's II-XI intact
[2022-01-09 18:50] VITALS: BP 153/79; PULSE 92; RESP 20; TEMP 36.4; O2SAT 98
[2022-01-09] MEDS: CLINDAMYCIN HCL 150 MG CAP 300 MG PO (19:04)
[2022-01-09 19:06] VITALS: BP 153/79; PULSE 92; RESP 20; TEMP 36.4; O2SAT 98
== END 2022-01-09 19:07 | disposition home or self-care (01) ==
PROVIDERS: Emergency Provider Emergency Medicine
DX: L03.032 Cellulitis of left toe (principal)
CPT/HCPCS: 99283; A9270

== ENCOUNTER 2022-01-12 16:08 | Outpatient (CLI) | payer MEDICARE, SELFPAY ==
--- NOTE | ~2022-01-12 | XR_ITS ---
EXAMINATION: XR foot LT min 3V DATE: 01/12/2022 16:45 INDICATION: Left-sided fourth digit cellulitis. TECHNIQUE: 4 views of left foot were obtained. COMPARISON: None. FINDINGS: Bone alignment is normal. No fracture. There are erosions of tuft of fourth distal phalanx, consistent with osteomyelitis. There is moderate osteoarthritis of first metatarsophalangeal joint a nd mild osteoarthritis of many of the midfoot joints and interphalangeal joints. There are enthesophy roxana at the posterior and plantar aspects of calcaneal tuberosity. IMPRESSION: 1. Osteomyelitis of fourth distal phalanx. 2. Polyarticular osteoarthritis. Reviewed, dictated and finalized at location A.
== END 2022-01-12 16:09 | disposition home or self-care (01) ==
LOC: ANHIMG 16:19
PROVIDERS: PCP Family Medicine; Visit Provider Nurse Practitioner Gerontology
DX: L03.039 Cellulitis of unspecified toe (principal); M86.8X7 Other osteomyelitis, ankle and foot; M19.072 Primary osteoarthritis, left ankle and foot
CPT/HCPCS: 73630

== ENCOUNTER 2022-01-12 17:33 | Inpatient (IN) | payer MEDICARE, MEDICAID, SELFPAY ==
--- NOTE | ~2022-01-12 | CT_ITS ---
EXAMINATION: CT foot LT w con DATE: 01/12/2022 22:08 INDICATION: Left foot fourth toe cellulitis. TECHNIQUE: Computed tomography (CT) of the left foot was performed with 100 mL Omnipaque 350 intraven ous contrast. Automated exposure control and iterative reconstruction technique were employed. The do se-length product was 389.51 mGy-cm. COMPARISON: Left foot radiographs 01/12/2022 FINDINGS: Bone alignment is normal. No fracture. There are erosions of tuft of fourth distal phalanx, consistent with osteomyelitis. There is moderate osteoarthritis of first metatarsophalangeal joint a nd talonavicular joint. There is mild osteoarthritis of many of the interphalangeal joints and midfoo t joints. There is mild ankle joint osteoarthritis. There are enthesophytes at medial and lateral mal leoli and at the posterior and plantar aspects of calcaneal tuberosity. There is subcutaneous edema o f the foot, worst dorsally. IMPRESSION: 1. Osteomyelitis of fourth distal phalanx. 2. Polyarticular osteoarthritis. Reviewed, dictated and finalized at location A.
--- NOTE | ~2022-01-12 | XR_ITS ---
EXAMINATION: XR chest PICC line Exam Date/Time: 01/16/2022 20:20 CDT HISTORY: PICC placement verification Comparison: 12/02/2015. RESULT: Lines, tubes, and devices: Left upper extremity PICC terminating in the right atrium. Intact median sternotomy wires. Surgical clips over the gastroesophageal junction. Mediastinal vascular clips. Lungs and pleura: Low volumes with crowding and diffuse reticular opacities. Cardiomediastinal silhouette: Stable. Other: No acute osseous or upper abdominal finding. IMPRESSION: Deeply positioned left upper extremity PICC, consider 5 cm retraction. Pulmonary opacities may repres ent senescent change and/or interstitial edema. Reviewed, dictated and finalized at location K. IMPRESSION: Deeply positioned left upper extremity PICC, consider 5 cm retraction. Pulmonar y opacities may represent senescent change and/or interstitial edema.
--- NOTE | ~2022-01-12 | XR_ITS ---
EXAMINATION: XR chest PICC line Exam Date/Time: 01/16/2022 20:30 CDT HISTORY: PICC LINE ADJUSTMENT Comparison: Same date at 8:17 PM. FINDINGS/IMPRESSION: The left upper extremity PICC has been repositioned, tip now terminates in the mid SVC. Reviewed, dictated and finalized at location K.
--- NOTE | ~2022-01-12 | US_ITS ---
US art doppler w press LE BI INDICATION: Left toe osteomyelitis TECHNIQUE: Segmental pressures and plethysmographic and Doppler waveforms of the brachial and lower e xtremity arteries were obtained. COMPARISON: 01/19/2021. FINDINGS: Right and left brachial artery pressures of 163 mm Hg and 163 mm Hg, respectively, are concordant (no rmal difference <= 30 mmHg). The right ankle-brachial index (YONG) is 1.25 (normal >= 0.9-1.0). The right great toe-brachial index (TBI) is 0.78 (normal >= 0.60). The left YONG is 1.25. The left TBI is 0.35. IMPRESSION: 1. Diminished left toe brachial index consistent with moderate peripheral arterial disease below the ankle. 2: Normal right ankle and toe brachial indices. Reviewed, dictated and finalized at location A. IMPRESSION: 1. Diminished left toe brachial index consistent with moderate peripheral arter ial disease below the ankle. 2: Normal right ankle and toe brachial indices.
[2022-01-12 17:47] VITALS: BP 121/75; PULSE 78; RESP 14; TEMP 36.3; O2SAT 98
[2022-01-12 18:08] LABS: Basophils Percent Auto 0.5 % (0.2-1.2); Eosinophils Absolute Auto 0.3 K/mm3 (0-0.3); Eosinophils Percent Auto 3.8 % (0-4.4); Hematocrit 40.3 % (42.0-52.0); Hemoglobin 13.2 g/dL (14.0-18.0); Immature Granulocyte Absolute 0.02 K/mm3 (0.00-0.031); Immature Granulocyte Percent A 0.3 % (0-0.5); Lymphocytes Absolute Auto 1.85 K/mm3 (0.9-3.2); Lymphocytes Percent Auto 24.8 % (18.3-44.2); Mean Corpuscular HGB Conc 32.8 g/dl (32-36); Mean Corpuscular Hemoglobin 29.8 pg (26-34); Mean Platelet Volume 9.3 fl (7.4-10.4); Monocytes Absolute Auto 0.6 K/mm3 (0.1-0.6); Monocytes Percent Auto 8.3 % (2.6-8.5); Neutrophils Absolute Auto 4.6 K/mm3 (1.3-6.7); Neutrophils Percent Auto 62.3 % (45.5-73.1); Platelet Count Result 319 k/mm3 (150-375); Red Blood Count 4.43 M/mm3 (4.6-6.20); Red Cell Distribution Width 13.1 % (11.5-14.5); White Blood Count 7.5 K/mm3 (4.5-10.0)
[2022-01-12 18:19] LABS: Alanine Aminotransferase 21 U/L (6-50); Albumin Level 4.2 g/dL (3.5-5.1); Alkaline Phosphatase 120 U/L (38-126); Anion Gap 12 mmol/L (8-16); Aspartate Amino Transferase 23 U/L (17-59); Bilirubin,Total 0.4 mg/dL (0.2-1.3); Blood Urea Nitrogen 25 mg/dL (9-20); Calcium 8.8 mg/dL (8.4-10.2); Carbon Dioxide 20 mmol/L (22-30); Chloride 107 mmol/L (98-107); Estimated CRCL calculation 63 ml/min; Estimated Glomerular Filt Rate > 60; Glucose 175 mg/dL (65-110); Sodium 139 mmol/L (137-145)
[2022-01-12 20:08] LABS: CRP 1.5 mg/dL (<1.0)
[2022-01-12 20:29] LABS: Erythrocyte Sedimentation Rate 18 mm/hr (0-20)
--- NOTE | 2022-01-12 21:14 | ED.GENADULT ---
HPI - General Adult General Chief complaint: Wound/Laceration Stated complaint: L. foot wound, need IV antibiotics Time Seen by Provider: 01/12/22 21:05 History of Present Illness HPI narrative: Patient is six 6-year-old gentleman who presents the emergency department with chief complaint of infection to the left foot. Patient reports that he was seen in the emergency department and started on clindamycin for a ulceration developed on the tip of his fourth toe. Patient states that she saw his primary today who noticed that his redness of his foot with streaking up further and sent him to the emergency department for IV antibiotics. Patient reports he has history of peripheral artery disease and also has had a coronary artery bypass graft. Patient reports he quit smoking approximately 30 years ago the patient reports that he is concerned that his foot is not improving. Related Data Home Medications Medication Instructions Recorded Confirmed empagliflozin 10 mg tablet 25 mg PO DAILY 06/04/21 01/09/22 (Jardiance) insulin lispro 100 unit/mL 5 unit subcut TIDWMEAL 06/04/21 01/09/22 subcutaneous pen (Humalog KwikPen (U-100) Insulin) aspirin 81 mg tablet 81 mg PO DAILY 07/21/21 01/09/22 Allergies Allergy/AdvReac Type Severity Reaction Status Date / Time No Known Drug Allergies Allergy Unknown Unknown Verified 01/12/22 15:32 Review of Systems Review of Systems: A 10 system review of systems was completed on the patient and is negative except for what is stated in the HPI. Nursing and ancillary documentation was reviewed. 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 Mixed hyperlipidemia PAD (peripheral artery disease) Peripheral neuropathy Pneumonia Psoriasis Rotator cuff arthropathy of right shoulder Rotator cuff tear, right UTI (urinary tract infection) Surgical History Surgical History H/O rotator cuff surgery right History of cardiac catheterization History of carpal tunnel release History of mandibular surgery 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) with stent placement right cervical carotid artery Family History Family History Father Patient's father is Acute myocardial infarction Cancer Social History Social History Social History: Smoking packs per day: 3 Smoking cigarettes per day: 60.0 Years smoked: 10 Smoking pack-years: 30.00 Smoking status: Former smoker Tobacco type: cigarettes Second hand tobacco smoke exposure: No Smoking end date: 03/18/94 Alcohol intake: never Substance use: never Substance use type: does not use Gender identity (if verbalized by the patient): Male Sexual Orientation (if Verbalized by the Patient): Straight or Heterosexual Exam Narrative: GENERAL: Well-appearing, well-nourished, and in no acute distress. HEAD: Normocephalic, atraumatic. EYES: PERRLA and EOMI. ENT: Nares clear, no rhinorrhea or epistaxis. Mucous membranes moist. NECK: Supple. CHEST: Clear to auscultation. No respiratory distress. HEART: Regular rate and rhythm. No murmur heard. Normal peripheral pulses. ABDOMEN: Soft, nontender, nondistended, normal active bowel sounds. EXTREMITIES: Normal range of motion. No edema. There is redness of the dorsum of the left foot. There are blisters on the tip of the first and third digits there is a small black area on the tip of the fourth digit of the left foot. SKIN: Warm,
--- NOTE | 2022-01-12 22:19 | PM.IMHP ---
H&P: HPI History of Present Illness Date/Time: 01/12/22 22:19 Chief Complaint: toe ulcer Narrative: This is a 66-year-old male with past medical history significant for coronary artery disease, status post coronary artery bypass graft, type 2 diabetes mellitus, peripheral vascular disease, diabetic peripheral neuropathy. patient presents to the emergency room due to left foot 4th toe ulcer with swelling and redness patient does not feel pain due to neuropathy, patient denies any fevers, rigors, chills, no nausea, no vomiting, no cough, no sputum production, good appetite, no shortness of breath, no abdominal pain. patient had presented to the emergency room 4 days ago for this reason was discharged home after he was evaluated however returns today due to worsening. Preliminary workup has been significant for CBC WBC 7.5, hemoglobin of 13, hematocrit 40 C reactive protein 1.5, x-ray of the left foot was reported as: IMPRESSION: 1. Osteomyelitis of fourth distal phalanx. 2. Polyarticular osteoarthritis. a CT of the foot was reported as: IMPRESSION: 1. Osteomyelitis of fourth distal phalanx. 2. Polyarticular osteoarthritis. patient has been admitted for further evaluation management and treatment. Review of Systems Review of Systems: Left 1st toe swelling, redness, ulcer. Constitutional: Constitutional: Denies chills, Denies fever(s), Denies malaise, Denies night sweats, Denies poor appetite and Denies weakness Eyes: Eyes: Denies change in vision ENT: Denies dysphagia, Denies vertigo, Denies dizziness and Denies odynophagia Cardiovascular: Cardiovascular: Denies chest pain, Denies syncope, Denies irregular heart rhythm and Denies palpitations Respiratory: Respiratory: Denies cough Gastrointestinal: Gastrointestinal: Denies abdominal pain, Denies dyspepsia, Denies heartburn, Denies diarrhea, Denies nausea and Denies vomiting Genitourinary: Genitourinary: Denies dysuria Musculoskeletal: Musculoskeletal: Reports other ( 4th toe ulcer with redness and swelling) Integumentary/Breasts: Skin/Breast: Reports skin ulcer ( left 4th toe) Neurologic: Denies focal weakness, Denies Sensory deficit (Neuro) and Reports paresthesias Psychiatric: Psychiatric: Reports no additional psychiatric complaints and Reports as per HPI Endocrine: Endocrine: Denies cold intolerance, Denies flushing, Denies heat intolerance, Denies polyphagia, Denies polydipsia and Denies palpitations Hematologic/Lymphatic: Hematologic/Lymphatic: Reports no additional hematologic/lymphatic complaints and Reports as per HPI Allergic/Immunologic: Allergic/Immunologic: Reports no additional allergic/immunologic complaints and Reports as per HPI PMFSH Past Medical History Medical History Arthritis Chronic pain disorder CVA (cerebral vascular accident) Diabetes mellitus Diabetic polyneuropathy associated with type 2 diabetes mellitus DISH (diffuse idiopathic skeletal hyperostosis) 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) hypertension [facility] (current) use of insulin Mixed hyperlipidemia PAD (peripheral artery disease) Peripheral neuropathy Pneumonia Psoriasis Rotator cuff arthropathy of right shoulder Rotator cuff tear, right UTI (urinary tract infection) Surgical History Surgical History H/O rotator cuff surgery right History of cardiac catheterization History of carpal tunnel release History of mandibular surgery 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
[2022-01-12 22:57] LABS: Influenza A QL RT-PCR Negative (Negative); Influenza B QL RT-PCR Negative (Negative); SARS-CoV-2 RNA PCR Negative
[2022-01-13] VITALS (7 sets, daily range): BP systolic 131–138; BP diastolic 53–69; PULSE 67–90; RESP 16–20; TEMP 36.6–36.9; O2SAT 96–99; BMI 28.8
[2022-01-13] MEDS: HYDROcodone/acetaminophen (*CRX) 5-325 MG TABLET 1 TAB PO (01:14)
--- NOTE | 2022-01-13 01:34 | ADMGEN ---
This patient, Ernesto Garvey, was admitted to [facility] Surg Room 323-01. Patient/family oriented to hospital policies and general routines including ID bracelet, bed and alarms, visiting hours, pain management, procedures, bathroom and other care routines, personal items, smoking policy, room service/diet, and visiting hours. Information on how to activate the Rapid Response Team has been discussed. Patient/Family are encouraged to report perceived risks to care and to ask questions if they do not understand what they are told or what they should do.
[2022-01-13 06:42] LABS: Basophils Percent Auto 0.5 % (0.2-1.2); Eosinophils Absolute Auto 0.2 K/mm3 (0-0.3); Eosinophils Percent Auto 3.7 % (0-4.4); Hematocrit 39.4 % (42.0-52.0); Hemoglobin 12.9 g/dL (14.0-18.0); Immature Granulocyte Absolute 0.03 K/mm3 (0.00-0.031); Immature Granulocyte Percent A 0.5 % (0-0.5); Lymphocytes Absolute Auto 1.63 K/mm3 (0.9-3.2); Lymphocytes Percent Auto 25.2 % (18.3-44.2); Mean Corpuscular HGB Conc 32.7 g/dl (32-36); Mean Corpuscular Hemoglobin 29.8 pg (26-34); Mean Platelet Volume 9.5 fl (7.4-10.4); Monocytes Absolute Auto 0.7 K/mm3 (0.1-0.6); Monocytes Percent Auto 10.2 % (2.6-8.5); Neutrophils Absolute Auto 3.9 K/mm3 (1.3-6.7); Neutrophils Percent Auto 59.9 % (45.5-73.1); Platelet Count Result 285 k/mm3 (150-375); Red Blood Count 4.33 M/mm3 (4.6-6.20); Red Cell Distribution Width 13.2 % (11.5-14.5); White Blood Count 6.5 K/mm3 (4.5-10.0)
[2022-01-13 07:07] LABS: Anion Gap 11 mmol/L (8-16); Blood Urea Nitrogen 21 mg/dL (9-20); Calcium 8.5 mg/dL (8.4-10.2); Carbon Dioxide 23 mmol/L (22-30); Chloride 106 mmol/L (98-107); Estimated CRCL calculation 63 ml/min; Estimated Glomerular Filt Rate > 60; Glucose 164 mg/dL (65-110); Potassium 3.6 mmol/L (3.4-5.0); Sodium 140 mmol/L (137-145)
[2022-01-13 07:43] LABS: Glucose Point of Care 179 mg/dl (65-105)
--- NOTE | 2022-01-13 08:36 | PM.IMPN ---
Progress Note: A&P Assessment and Plan (1) Foot osteomyelitis, left: Code(s): M86.9 - Osteomyelitis, unspecified Status: Acute Assessment and Plan: left 4th toe distal phalanx osteomyelitis CT of the foot reviewed started on vanc and Zosyn cultures in progress general surgery consult (2) PAF (paroxysmal atrial fibrillation): Code(s): I48.0 - Paroxysmal atrial fibrillation Status: Acute Assessment and Plan: rate controlled not on anticoagulation (3) CAD (coronary artery disease), autologous vein bypass graft: Code(s): I25.810 - Atherosclerosis of coronary artery bypass graft(s) without angina pectoris Status: Acute Assessment and Plan: chest pain-free continue home meds (4) PAD (peripheral artery disease): Code(s): I73.9 - Peripheral vascular disease, unspecified Status: Acute Assessment and Plan: ABIs from 02/05 show decreased right and left TBI with marked brachial artery pressures (5) Status post percutaneous transluminal angioplasty ([employer]OR) with stent placement: Code(s): Z95.820 - Peripheral vascular angioplasty status with implants and grafts Status: Acute Assessment and Plan: stable (6) COPD (chronic obstructive pulmonary disease): Code(s): J44.9 - Chronic obstructive pulmonary disease, unspecified Status: Acute Assessment and Plan: stable on no medications (7) Diabetic polyneuropathy associated with type 2 diabetes mellitus: Code(s): E11.42 - Type 2 diabetes mellitus with diabetic polyneuropathy Status: Chronic Assessment and Plan: Accu-Cheks AC and HS carb consistent diet continue Lantus and lispro a1c pending (8) Chronic pain disorder: Code(s): G89.4 - Chronic pain syndrome Status: Chronic Assessment and Plan: on chronic opiates Plan DVT prophylaxis with SCDs GI prophylaxis not indicated Code status full code Subjective Date/time seen: 01/13/22 08:36 Interval history: No overnight events noted. No chest pain or shortness of breath. No nausea, vomiting or diarrhea. No fevers or chills. Review of Systems Review of Systems: 12 point review of systems was assessed and was negative except as noted in the HPI Exam Narrative: General: No acute distress, alert and oriented per baseline HEENT: Atraumatic, normocephalic, mucous membranes moist CV: Regular rate and rhythm, S1, S2 Lungs: Clear to auscultation bilaterally, no rales or crackles noted, no wheezes, good air entry Abdomen: Soft, nontender, nondistended Extremities: No edema Skin: skin blanching with area of necrosis noted on 4th left toe, blisters noted on plantar surface of great and second toe on left foot Psych: Euthymic, normal affect Objective Data Vital Signs Vital Signs: Vital Signs - 24 hr 01/12/22 17:47 01/13/22 02:11 01/13/22 05:33 Temperature 97.3 F L 98.1 F 98.5 F Pulse Rate 78 75 67 Respiratory Rate 14 16 16 Blood Pressure 121/75 131/69 138/65 Pulse Oximetry 98 96 98 Oxygen Delivery Room Air Intake/Output Intake/Output: Intake & Output 01/10/22 01/11/22 01/12/22 01/13/22 23:59 23:59 23:59 23:59 Intake Total 300 300 Balance 300 300 Meds/Results Medications: Active Medications Generic Name Dose Route Start Last Admin Trade Name Freq PRN Reason Stop Dose Admin Acetaminophen 650 mg 01/12/22 21:27 Acetaminophen 325 Mg Tablet PO Q4H PRN Mild Pain (1-3) or Fever Hydrocodone Bitart/Acetaminophen 1 tab 01/13/22 02:46 Hydrocodone/Acetaminophen (*Crx) 10-325 Mg Tablet PO Q6H PRN Pain Rated 4-6 Aspirin 81 mg 01/13/22 09:00 Aspirin 81 Mg Enteric Tablet PO QAM ON LICENSE OF [facility] Atorvastatin Calcium 40 mg 01/13/22 18:00 Atorvastatin 40 Mg Tablet PO QPM ON LICENSE OF [facility] Carvedilol 12.5 mg 01/13/22 09:00 Carvedilol 12.5 Mg Tablet PO Q12HR ON LICENSE OF [facility] Clopidogrel Bisulfate 75 mg 01/13/22 09:
[2022-01-13] MEDS: INSULIN GLARGINE (*BKC) 100 UNITS/ML 8 UNITS SUB-Q (09:50)
[2022-01-13] MEDS: ASPIRIN 81 MG ENTERIC TABLET PO (09:54)
[2022-01-13] MEDS: LOSARTAN POTASSIUM 50 MG TABLET PO (09:55)
[2022-01-13] MEDS: carvediloL 12.5 MG TABLET PO ×2 (09:56→21:25)
[2022-01-13] MEDS: MUPIROCIN 2% OINT 22 GM TUBE 1 APPLIC TOPICAL ×2 (09:57→17:29)
[2022-01-13] MEDS: FENOFIBRATE 160 MG TABLET PO (09:57)
[2022-01-13] MEDS: CLOPIDOGREL BISULFATE 75 MG TABLET PO (09:57)
[2022-01-13] MEDS: INSULIN ASPART (*BKC) 100 UNITS/ML SUB-Q (11:31)
[2022-01-13] MEDS: ACETAMINOPHEN 325 MG TABLET 650 MG PO (11:31)
[2022-01-13 11:58] LABS: Glucose Point of Care 226 mg/dl (65-105)
[2022-01-13] MEDS: HYDROcodone/acetaminophen (*CRX) 10-325 MG TABLET 1 TAB PO ×2 (12:38→21:26)
--- NOTE | 2022-01-13 16:51 | PM.CNGS ---
Assessment and Plan Assessment and plan (1) Osteomyelitis of fourth toe of left foot: Code(s): M86.9 - Osteomyelitis, unspecified Status: Acute Assessment and Plan: patient has evidence of osteomyelitis of the left 4th toe. He does note the redness has slightly improved since starting IV antibiotics. Will continue to monitor for any signs of further necrosis or ischemia. I would like to get an arterial duplex ultrasound with ABIs to further assess severity peripheral vascular disease. Discussed possibility of needing amputation if not responding to antibiotic treatment. Also discussed that ultimately he will need to see a vascular surgeon to help with revascularization to his lower extremities. (2) Type 2 diabetes mellitus: Code(s): E11.9 - Type 2 diabetes mellitus without complications Status: Acute Assessment and Plan: Strict blood sugar management will be paramount to patient recovering from infection or surgery. This will also help prevent further diabetic foot ulcers in the future. (3) PAD (peripheral artery disease): Code(s): I73.9 - Peripheral vascular disease, unspecified Status: Acute (4) CAD (coronary artery disease), autologous vein bypass graft: Code(s): I25.810 - Atherosclerosis of coronary artery bypass graft(s) without angina pectoris Status: Acute History of Present Illness Consult details Consult date: 01/13/22 Reason for consult: other ( left toe osteomyelitis) Requesting physician: Brianda Stanford MD Narrative: this is a 66-year-old man who I am asked to see for osteomyelitis of his left toe. He developed a blister on his toe and has noticed worsening swelling and redness around the 4th toe on his left foot. He was admitted through the emergency department last night. He was previously seen in the emergency department 3 days ago and was started on oral antibiotics. Patient states that he has noticed some slight improvement in the redness since being started on antibiotics. He does have a history of peripheral vascular disease and was supposed to be seeing a vascular surgeon. He underwent coronary artery bypass graft in May of 2021 and was told he had to be at least 6 months out from the surgery before he could see the vascular surgeon. He does not have any recent arterial studies done at this hospital but did have a lower extremity duplex arterial ultrasound from about 1 year ago. Review of Systems Review of Systems: All systems reviewed & are unremarkable except as noted in HPI and below Constitutional: Constitutional: Denies chills and Denies fever(s) Cardiovascular: Cardiovascular: Denies chest pain and Denies dyspnea Respiratory: Respiratory: Denies dyspnea Gastrointestinal: Gastrointestinal: Denies abdominal pain, Denies nausea and Denies vomiting Musculoskeletal: Musculoskeletal: Reports as per HPI [facility] Past Medical History Medical History Arthritis Chronic pain disorder CVA (cerebral vascular accident) Diabetes mellitus Diabetic polyneuropathy associated with type 2 diabetes mellitus DISH (diffuse idiopathic skeletal hyperostosis) 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
[2022-01-13 16:58] LABS: Glucose Point of Care 133 mg/dl (65-105)
[2022-01-13] MEDS: ATORVASTATIN 40 MG TABLET PO (18:28)
[2022-01-13] MEDS: INSULIN GLARGINE (*BKC) 100 UNITS/ML 10 UNITS SUB-Q (21:29)
[2022-01-14] VITALS (7 sets, daily range): BP systolic 135–151; BP diastolic 59–82; PULSE 63–99; RESP 19–20; TEMP 36.6–37.1; O2SAT 97–99
[2022-01-14] MEDS: HYDROcodone/acetaminophen (*CRX) 10-325 MG TABLET 1 TAB PO ×3 (06:44→21:28)
[2022-01-14 08:01] LABS: Glucose Point of Care 125 mg/dl (65-105)
[2022-01-14] MEDS: FENOFIBRATE 160 MG TABLET PO (08:20)
[2022-01-14] MEDS: INSULIN GLARGINE (*BKC) 100 UNITS/ML 8 UNITS SUB-Q (08:20)
[2022-01-14] MEDS: LOSARTAN POTASSIUM 50 MG TABLET PO (08:20)
[2022-01-14] MEDS: CLOPIDOGREL BISULFATE 75 MG TABLET PO (08:20)
[2022-01-14] MEDS: carvediloL 12.5 MG TABLET PO ×2 (08:20→21:39)
[2022-01-14] MEDS: ASPIRIN 81 MG ENTERIC TABLET PO (08:20)
[2022-01-14] MEDS: MUPIROCIN 2% OINT 22 GM TUBE 1 APPLIC TOPICAL ×2 (08:22→16:37)
[2022-01-14 08:49] LABS: Basophils Percent Auto 0.4 % (0.2-1.2); Eosinophils Absolute Auto 0.3 K/mm3 (0-0.3); Eosinophils Percent Auto 4.9 % (0-4.4); Hematocrit 42.8 % (42.0-52.0); Hemoglobin 13.8 g/dL (14.0-18.0); Immature Granulocyte Absolute 0.03 K/mm3 (0.00-0.031); Immature Granulocyte Percent A 0.4 % (0-0.5); Lymphocytes Absolute Auto 0.97 K/mm3 (0.9-3.2); Mean Corpuscular HGB Conc 32.2 g/dl (32-36); Mean Corpuscular Hemoglobin 29.4 pg (26-34); Mean Corpuscular Volume 91.1 fl (80-100); Mean Platelet Volume 8.9 fl (7.4-10.4); Monocytes Absolute Auto 0.7 K/mm3 (0.1-0.6); Monocytes Percent Auto 10.1 % (2.6-8.5); Neutrophils Absolute Auto 4.8 K/mm3 (1.3-6.7); Neutrophils Percent Auto 70.2 % (45.5-73.1); Platelet Count Result 284 k/mm3 (150-375); Red Cell Distribution Width 13.2 % (11.5-14.5); White Blood Count 6.9 K/mm3 (4.5-10.0)
--- NOTE | 2022-01-14 08:59 | PM.IMPN ---
Progress Note: A&P Assessment and Plan (1) Foot osteomyelitis, left: Code(s): M86.9 - Osteomyelitis, unspecified Status: Acute Assessment and Plan: continue vancomycin and Zosyn, appreciate surgery consultation, follow-up blood cultures, pending (2) PAF (paroxysmal atrial fibrillation): Code(s): I48.0 - Paroxysmal atrial fibrillation Status: Acute Assessment and Plan: stable, not on anticoagulation (3) CAD (coronary artery disease), autologous vein bypass graft: Code(s): I25.810 - Atherosclerosis of coronary artery bypass graft(s) without angina pectoris Status: Acute Assessment and Plan: stable, continue home meds (4) PAD (peripheral artery disease): Code(s): I73.9 - Peripheral vascular disease, unspecified Status: Acute Assessment and Plan: will need outpatient vascular surgery consultation and management (5) Status post percutaneous transluminal angioplasty ([employer] MERCHANDISER) with stent placement: Code(s): Z95.820 - Peripheral vascular angioplasty status with implants and grafts Status: Acute Assessment and Plan: stable (6) COPD (chronic obstructive pulmonary disease): Code(s): J44.9 - Chronic obstructive pulmonary disease, unspecified Status: Acute Assessment and Plan: stable on no medications (7) Diabetic polyneuropathy associated with type 2 diabetes mellitus: Code(s): E11.42 - Type 2 diabetes mellitus with diabetic polyneuropathy Status: Chronic Assessment and Plan: Accu-Cheks AC and HS carb consistent diet continue Lantus and lispro a1c pending added sliding scale insulin, goal is to keep glucose under 180 (8) Chronic pain disorder: Code(s): G89.4 - Chronic pain syndrome Status: Chronic Assessment and Plan: on chronic opiates (9) Diastolic heart failure: Code(s): I50.30 - Unspecified diastolic (congestive) heart failure Status: Acute Assessment and Plan: appears euvolemic, grade 1 dysfunction noted on echo from 2019, repeat echo pending Plan DVT prophylaxis with SCDs GI prophylaxis not indicated Code status full code Subjective Date/time seen: 01/14/22 08:59 Interval history: No overnight events noted. No chest pain or shortness of breath. No nausea, vomiting or diarrhea. No fevers or chills. Review of Systems Review of Systems: 12 point review of systems was assessed and was negative except as noted in the HPI Exam Narrative: General: No acute distress, alert and oriented per baseline HEENT: Atraumatic, normocephalic, mucous membranes moist CV: Regular rate and rhythm, S1, S2 Lungs: Clear to auscultation bilaterally, no rales or crackles noted, no wheezes, good air entry Abdomen: Soft, nontender, nondistended Extremities: No edema Skin: skin blanching with area of necrosis noted on 4th left toe, blisters noted on plantar surface of great and second toe on left foot Psych: Euthymic, normal affect Objective Data Vital Signs Vital Signs: Vital Signs - 24 hr 01/13/22 09:56 01/13/22 13:46 01/13/22 14:00 Temperature 98.4 F 98.4 F Pulse Rate 90 72 72 Respiratory Rate 16 16 Blood Pressure 137/53 L 137/53 L Pulse Oximetry 96 96 Oxygen Delivery 01/13/22 21:25 01/13/22 21:39 01/14/22 06:00 Temperature 98 F 98 F Pulse Rate 78 82 63 Respiratory Rate 20 20 Blood Pressure 136/66 135/59 L Pulse Oximetry 99 99 Oxygen Delivery 01/14/22 08:20 01/14/22 08:35 Temperature Pulse Rate 68 Respiratory Rate Blood Pressure Pulse Oximetry Oxygen Delivery Room Air Intake/Output Intake/Output: Intake & Output 01/11/22 01/12/22 01/13/22 01/14/22 23:59 23:59 23:59 23:59 Intake Total 300 4404 691 Output Total 1500 700 Balance 300 2904 -9 Meds/Results Medications: Active Medications Generic Name Dose Route Start Last Admin Trade Name Freq PRN Reason Stop Dose Admin Acet
[2022-01-14 09:24] LABS: Alanine Aminotransferase 20 U/L (6-50); Albumin Level 4.1 g/dL (3.5-5.1); Alkaline Phosphatase 75 U/L (38-126); Anion Gap 12 mmol/L (8-16); Aspartate Amino Transferase 33 U/L (17-59); Bilirubin,Total 0.5 mg/dL (0.2-1.3); Blood Urea Nitrogen 15 mg/dL (9-20); Calcium 8.5 mg/dL (8.4-10.2); Carbon Dioxide 27 mmol/L (22-30); Chloride 102 mmol/L (98-107); Estimated CRCL calculation 63 ml/min; Estimated Glomerular Filt Rate > 60; Glucose 226 mg/dL (65-110); Potassium 4.2 mmol/L (3.4-5.0); Sodium 141 mmol/L (137-145)
[2022-01-14 09:25] LABS: Vancomycin Trough 11.1 ug/mL (10.0-20.0)
[2022-01-14 11:46] LABS: Glucose Point of Care 135 mg/dl (65-105)
--- NOTE | 2022-01-14 15:19 | PM.PNGS ---
Progress Note: A&P Assessment and Plan (1) Osteomyelitis of fourth toe of left foot: Code(s): M86.9 - Osteomyelitis, unspecified Status: Acute Assessment and Plan: Patient is improving with current antibiotic treatment. He does have evidence of osteomyelitis, but does not any significant signs of soft tissue infection or ongoing ischemia. His arterial ultrasound shows diminished blood flow below the ankle. Amputation of the 4th toe would be at risk for continued wound healing problems due to the poor vasculature. Will try to avoid amputation at this time and continue with antibiotic treatment. He would benefit from evaluation by a vascular surgeon once discharged. This may be small vessel disease and there may not be much benefit to any revascularization procedure, but being evaluated will at least give him the chance at optimization of treatment of his peripheral vascular disease. (2) PAD (peripheral artery disease): Code(s): I73.9 - Peripheral vascular disease, unspecified Status: Acute (3) CAD (coronary artery disease), autologous vein bypass graft: Code(s): I25.810 - Atherosclerosis of coronary artery bypass graft(s) without angina pectoris Status: Acute (4) Type 2 diabetes mellitus: Code(s): E11.9 - Type 2 diabetes mellitus without complications Status: Acute Subjective Subjective Date/Time Seen: 01/14/22 15:19 Interval history: Patient is feeling better. Feels like toe is improving. Exam Extrem: Other: Left 4th toe redness slightly improved. Seeing some normal capillary refill within the toe at this point. No purulence drainage. Dorsalis pedis and posterior tibial pulses still slightly diminished. Objective Data Vital Signs Vital Signs: Vital Signs - 24 hr 01/13/22 21:25 01/13/22 21:39 01/14/22 06:00 Temperature 36.6 C 36.6 C Pulse Rate 78 82 63 Respiratory Rate 20 20 Blood Pressure 136/66 135/59 L Pulse Oximetry 99 99 Oxygen Delivery 01/14/22 08:20 01/14/22 08:35 01/14/22 09:07 Temperature Pulse Rate 68 Respiratory Rate Blood Pressure Pulse Oximetry 99 Oxygen Delivery Room Air Room Air Intake/Output Intake/Output: Intake & Output 01/11/22 01/12/22 01/13/22 01/14/22 23:59 23:59 23:59 23:59 Intake Total 300 4404 981 Output Total 1500 700 Balance 300 2904 281 Meds/Results Medications: Active Medications Generic Name Dose Route Start Last Admin Trade Name Freq PRN Reason Stop Dose Admin Acetaminophen 650 mg 01/12/22 21:27 01/13/22 11:31 Acetaminophen 325 Mg Tablet PO 650 mg Q4H PRN Administration Mild Pain (1-3) or Fever Hydrocodone Bitart/Acetaminophen 1 tab 01/13/22 02:46 01/14/22 13:53 Hydrocodone/Acetaminophen (*Crx) 10-325 Mg Tablet PO 1 tab Q6H PRN Administration Pain Rated 4-6 Aspirin 81 mg 01/13/22 09:00 01/14/22 08:20 Aspirin 81 Mg Enteric Tablet PO 81 mg QAM TY Administration Atorvastatin Calcium 40 mg 01/13/22 18:00 01/13/22 18:28 Atorvastatin 40 Mg Tablet PO 40 mg QPM TY Administration Carvedilol 12.5 mg 01/13/22 09:00 01/14/22 08:20 Carvedilol 12.5 Mg Tablet PO 12.5 mg Q12HR TY Administration Clopidogrel Bisulfate 75 mg 01/13/22 09:00 01/14/22 08:20 Clopidogrel Bisulfate 75 Mg Tablet PO 75 mg DAILY TY Administration Dextrose 12.5 gm 01/14/22 11:25 Dextrose 50% 25 Gm/50 Ml Syringe IV PUSH PRN PRN Hypoglycemia Protocol Fenofibrate 160 mg 01/13/22 09:00 01/14/22 08:20 Fenofibrate 160 Mg Tablet PO 160 mg DAILY TY Administration Glucagon 1 mg 01/14/22 11:25 Glucagon For Inj 1 Mg Vial IM PRN PRN Hypoglycemia Protocol Glucose 15 gm 01/14/22 11:25 Glucose Oral Gel 15 Gm Of Glucse In 37.5 Gm Tube PO PRN PRN Hypoglycemia Protocol Piperacillin/Tazobactam/Dextrose 3.375 gm in 50 mls @ 100 mls/hr 01/13/22 05:00 01/14/22 1
[2022-01-14 16:37] LABS: Glucose Point of Care 147 mg/dl (65-105)
[2022-01-14] MEDS: ATORVASTATIN 40 MG TABLET PO (17:00)
[2022-01-14 21:25] LABS: Glucose Point of Care 151 mg/dl (65-105)
[2022-01-14] MEDS: INSULIN GLARGINE (*BKC) 100 UNITS/ML 10 UNITS SUB-Q (21:27)
--- NOTE | 2022-01-15 | ECHO_ITS ---
Patient Info Name: Ernesto Garvey Age: 66 years : 1955 Gender: Male Ht: 69 in Wt: 195 lbs BSA: 2.10 m2 HR: 76 bpm BP: 136 / 75 mmHg Technical Quality: Fair Exam Date: 01/15/2022 9:11 AM Exam Location: [facility] Pulmonary Patient Status: Inpatient Admit Date: 01/12/2022 Staff Ordering Physician: Meghana Wen DO Sampler Tester: Monica Renner RDCS Attending Provider: Saurav Mo MD Referring Physician: Bettye COUGHLIN; Exam Type: CA echo doppler color flow Study Info Indications I50.30 - Unspecified diastolic (congestive) heart failure Complete two-dimensional, color flow and Doppler transthoracic echocardiogram is performed. Summary 1. Complete two-dimensional, color flow and Doppler transthoracic echocardiogram is performed. 2. Left ventricular chamber dimension is normal. 3. Left ventricular systolic function is normal, estimated at 60-65%. 4. The left ventricular diastolic function is normal. 5. E/e' 9 is minimally elevated. 6. Global longitudinal strain is slightly abnormal at -16.7%. 7. Left atrial chamber dimension is moderately enlarged. 8. There is mild aortic valve sclerosis. 9. No pulmonary hypertension, estimated pulmonary arterial systolic pressure is 11 mmHg. Left Ventricle E/e' 9 is minimally elevated. Global longitudinal strain is slightly abnormal at -16.7%. Left ventricular chamber dimension is normal. Left ventricular systolic function is normal, estimated at 60-65%. The left ventricular diastolic function is normal. Right Ventricle Right ventricular chamber dimension is normal. Right ventricular systolic function is normal. Left Atria Left atrial chamber dimension is moderately enlarged. Right Atria Right atrial chamber dimension is normal. Aortic Valve The aortic valve is trileaflet. There is mild aortic valve sclerosis. There is no aortic valve stenosis. There is no aortic valve regurgitation. Pulmonic Valve There is no pulmonic regurgitation. Mitral Valve There is no mitral valve stenosis. There is no mitral valve regurgitation. Tricuspid Valve There is no tricuspid valve regurgitation. No pulmonary hypertension, estimated pulmonary arterial systolic pressure is 11 mmHg. Pericardium/Pleural There is no pericardial effusion. Inferior Vena Cava Normal inferior vena cava with >50% collapse upon inspiration consistent with normal right atrial pressure, 5 mmHg. Aorta The aortic root size at the sinus of Valsalva is normal. Left Ventricular Outflow Tract Name Value Normal LVOT 2D LVOT Diameter 1.9 cm LVOT Doppler LVOT Peak Gradient 5 mmHg LVOT Mean Gradient 3 mmHg LVOT VTI 25 cm LVOT VTI/AV VTI Ratio 0.9 LVOT Stroke Volume 69 ml LVOT CO 4.9 l/min LVOT CI 2.3 l/min/m2 Pulmonic Valve Name Value Normal
[2022-01-15 05:39] VITALS: BP 136/75; PULSE 66; RESP 16; TEMP 36.8; O2SAT 95
[2022-01-15 07:40] LABS: Glucose Point of Care 140 mg/dl (65-105)
[2022-01-15 07:45] LABS: Basophils Percent Auto 0.3 % (0.2-1.2); Eosinophils Absolute Auto 0.4 K/mm3 (0-0.3); Eosinophils Percent Auto 6.6 % (0-4.4); Hematocrit 41.3 % (42.0-52.0); Hemoglobin 13.4 g/dL (14.0-18.0); Immature Granulocyte Absolute 0.02 K/mm3 (0.00-0.031); Immature Granulocyte Percent A 0.3 % (0-0.5); Lymphocytes Absolute Auto 1.49 K/mm3 (0.9-3.2); Lymphocytes Percent Auto 24.7 % (18.3-44.2); Mean Corpuscular HGB Conc 32.4 g/dl (32-36); Mean Corpuscular Hemoglobin 29.2 pg (26-34); Mean Platelet Volume 9.6 fl (7.4-10.4); Monocytes Absolute Auto 0.7 K/mm3 (0.1-0.6); Monocytes Percent Auto 11.6 % (2.6-8.5); Neutrophils Absolute Auto 3.4 K/mm3 (1.3-6.7); Neutrophils Percent Auto 56.5 % (45.5-73.1); Platelet Count Result 301 k/mm3 (150-375); Red Blood Count 4.59 M/mm3 (4.6-6.20); Red Cell Distribution Width 13.1 % (11.5-14.5)
[2022-01-15 07:52] LABS: Alanine Aminotransferase 19 U/L (6-50); Alkaline Phosphatase 77 U/L (38-126); Anion Gap 13 mmol/L (8-16); Aspartate Amino Transferase 24 U/L (17-59); Bilirubin,Total 0.4 mg/dL (0.2-1.3); Blood Urea Nitrogen 13 mg/dL (9-20); Calcium 8.5 mg/dL (8.4-10.2); Carbon Dioxide 25 mmol/L (22-30); Chloride 105 mmol/L (98-107); Estimated CRCL calculation 70 ml/min; Estimated Glomerular Filt Rate > 60; Glucose 128 mg/dL (65-110); Sodium 143 mmol/L (137-145)
[2022-01-15 07:56] VITALS: PULSE 70
[2022-01-15] MEDS: HYDROcodone/acetaminophen (*CRX) 10-325 MG TABLET 1 TAB PO ×3 (07:56→20:32)
[2022-01-15] MEDS: carvediloL 12.5 MG TABLET PO ×2 (07:56→20:26)
[2022-01-15] MEDS: CLOPIDOGREL BISULFATE 75 MG TABLET PO (07:56)
[2022-01-15] MEDS: LOSARTAN POTASSIUM 50 MG TABLET PO (07:57)
[2022-01-15] MEDS: ASPIRIN 81 MG ENTERIC TABLET PO (07:57)
[2022-01-15] MEDS: FENOFIBRATE 160 MG TABLET PO (07:57)
[2022-01-15] MEDS: INSULIN GLARGINE (*BKC) 100 UNITS/ML 8 UNITS SUB-Q (07:57)
[2022-01-15] MEDS: MUPIROCIN 2% OINT 22 GM TUBE 1 APPLIC TOPICAL ×2 (07:57→17:02)
[2022-01-15] MEDS: SILVERGEL (ELTA) 45 ML 1 APPLIC TOPICAL (10:33)
--- NOTE | 2022-01-15 11:05 | PM.PNGS ---
Progress Note: A&P Assessment and Plan (1) Osteomyelitis of fourth toe of left foot: Code(s): M86.9 - Osteomyelitis, unspecified Status: Acute Assessment and Plan: Overall, the patient is improving with IV antibiotics. Redness continues to improve. The left 4th toe now has a soft black eschar that is draining. I would recommend having a bedside excisional debridement of the left 4th toe wound to unroof the soft eschar. I discussed the procedure, risks, benefits, alternatives, and continued wound care after with the patient. He agrees to proceed. We would still recommend to avoid amputation at this time due to his risks of poor wound healing given his peripheral arterial disease and with him improving with antibiotics. I will have the nurse gather supplies and do this today at the bedside. Continue local wound care after debridement. (2) PAD (peripheral artery disease): Code(s): I73.9 - Peripheral vascular disease, unspecified Status: Acute Assessment and Plan: Arterial doppler shows diminished left TBI. Patient aware that he needs to see a vascular surgeon after discharge. (3) CAD (coronary artery disease), autologous vein bypass graft: Code(s): I25.810 - Atherosclerosis of coronary artery bypass graft(s) without angina pectoris Status: Acute (4) Type 2 diabetes mellitus: Code(s): E11.9 - Type 2 diabetes mellitus without complications Status: Acute Plan I have discussed the patient's case and plan of care with Dr. Roberto. Subjective Subjective Date/Time Seen: 01/15/22 11:05 Patient reports: no new complaints, feels better and afebrile Interval history: Patient seen and examined, chart reviewed. This is a 66 yo M who presented to the ER 3 days ago due to a blister on his toe with worsening redness and swelling. He has a hx of PAD and CAD s/p CABG in May 2021 and was planning to see a vascular surgeon 6 months after surgery. Workup showed osteomyelitis of the left 4th distal phalanx. Arterial US showed diminished blood flow below the ankle. He has been improving with IV antibiotics. Today, he feels he continues to see significant improvement of the redness and swelling of the left 4th toe. He states there was also redness of the 1st, 2nd, and 3rd toes, which has resolved with the antibiotics. He denies any pain. He does report some drainage from the wound on the left 4th toe this morning. He also reports some drainage the day he presented to the ER. No wound cultures have been obtained in the chart. Wound care saw the patient this morning and reported to me that they noticed purulent drainage coming from the wound on the distal left 4th toe. Review of Systems Review of Systems: All systems reviewed & are unremarkable except as noted in HPI and below Exam Const: General: no acute distress and alert Orientation/consciousness: patient oriented x3 Extrem: Left lower extremity: foot Details: normal capillary refill, toes with normal ROM and vascular exam Details: dorsalis pedis pulse present (faint on palpation); posterior tivial pulse absent (on palpation), not cool and no cyanosis Ankle/foot/toe images: 1. Soft black eschar 0.7 x 0.9 cm on the plantar aspect of the distal left 4th toe, scant amount of cloudy serosanguineous drainage, able to probe to bone 2. Vesicle that appears serous-filled, overlying skin intact, no erythema 3. Vesicle that appears serous-filled, overlying skin intact, no erythema Other: Redness improved with only slight redness of the 4th toe today, good cap refill, slight edema of the 4th toe but reportedly much improved. No significant extension of erythema or swelling. Psych: Insight: Good insight present (Psych) Judgement: Good judgement present (Psych) Objective Data Vital Signs Vital Signs: Vital Signs - 24 hr 01/14/22 15:30 01/14/22 21:39 01/14/22 22:00 Temperature 97.8 F 98.7 F Pulse Rate 67 78 99 Respiratory Rate 20 19 Bloo
--- NOTE | 2022-01-15 11:06 | PM.IMPN ---
Progress Note: A&P Assessment and Plan (1) Foot osteomyelitis, left: Code(s): M86.9 - Osteomyelitis, unspecified Status: Acute Assessment and Plan: continue vancomycin and Zosyn, appreciate surgery consultation, follow-up blood cultures, preliminary report negative, final report pending. wound culture pending (2) PAF (paroxysmal atrial fibrillation): Code(s): I48.0 - Paroxysmal atrial fibrillation Status: Acute Assessment and Plan: stable, not on anticoagulation (3) CAD (coronary artery disease), autologous vein bypass graft: Code(s): I25.810 - Atherosclerosis of coronary artery bypass graft(s) without angina pectoris Status: Acute Assessment and Plan: stable, continue home meds (4) PAD (peripheral artery disease): Code(s): I73.9 - Peripheral vascular disease, unspecified Status: Acute Assessment and Plan: will need outpatient vascular surgery consultation and management (5) Status 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 on no medications (7) Diabetic polyneuropathy associated with type 2 diabetes mellitus: Code(s): E11.42 - Type 2 diabetes mellitus with diabetic polyneuropathy Status: Chronic Assessment and Plan: Accu-Cheks AC and HS carb consistent diet continue Lantus and lispro, sliding scale insulin, goal is to keep glucose under 180 (8) Chronic pain disorder: Code(s): G89.4 - Chronic pain syndrome Status: Chronic Assessment and Plan: on chronic opiates (9) Diastolic heart failure: Code(s): I50.30 - Unspecified diastolic (congestive) heart failure Status: Acute Assessment and Plan: appears euvolemic, grade 1 dysfunction noted on echo from 2019, repeat echo pending Plan DVT prophylaxis with SCDs GI prophylaxis not indicated Code status full code Subjective Date/time seen: 01/15/22 11:06 Interval history: No overnight events noted. No chest pain or shortness of breath. No nausea, vomiting or diarrhea. No fevers or chills. Exam Narrative: General: No acute distress, alert and oriented per baseline HEENT: Atraumatic, normocephalic, mucous membranes moist CV: Regular rate and rhythm, S1, S2 Lungs: Clear to auscultation bilaterally, no rales or crackles noted, no wheezes, good air entry Abdomen: Soft, nontender, nondistended Extremities: No edema Skin: skin blanching with area of necrosis noted on 4th left toe, blisters noted on plantar surface of great and second toe on left foot Psych: Euthymic, normal affect Objective Data Vital Signs Vital Signs: Vital Signs - 24 hr 01/14/22 15:30 01/14/22 21:39 01/14/22 22:00 Temperature 97.8 F 98.7 F Pulse Rate 67 78 99 Respiratory Rate 20 19 Blood Pressure 151/69 H 137/82 Pulse Oximetry 97 98 Oxygen Delivery 01/14/22 20:00 01/14/22 20:58 01/15/22 05:39 Temperature 98.3 F Pulse Rate 66 Respiratory Rate 16 Blood Pressure 136/75 Pulse Oximetry 98 95 Oxygen Delivery Room Air Room Air 01/15/22 07:56 01/15/22 08:00 Temperature Pulse Rate 70 Respiratory Rate Blood Pressure Pulse Oximetry Oxygen Delivery Room Air Intake/Output Intake/Output: Intake & Output 01/12/22 01/13/22 01/14/22 01/15/22 23:59 23:59 23:59 23:59 Intake Total 300 4404 1771 1300 Output Total 1500 1150 450 Balance 300 2904 621 850 Meds/Results Medications: Active Medications Generic Name Dose Route Start Last Admin Trade Name Freq PRN Reason Stop Dose Admin Acetaminophen 650 mg 01/12/22 21:27 01/13/22 11:31 Acetaminophen
[2022-01-15 11:18] LABS: Glucose Point of Care 211 mg/dl (65-105)
[2022-01-15] MEDS: INSULIN ASPART (*BKC) 100 UNITS/ML SUB-Q ×2 (11:18→11:19)
--- NOTE | 2022-01-15 12:39 | P.OP_ITS ---
Procedure Note - Detailed Date of Procedure 01/15/22 Pre-op Diagnosis Left 4th toe wound Post-op Diagnosis Same Procedure Performed Sharp excisional debridement of left 4th toe wound including skin and subcutaneous tissue, measuring 1 cm x 1 cm x 0.5 cm Surgeon HANK Wilcox Anesthesia None Indications Soft eschar of the left 4th toe wound with drainage, left 4th distal phalanx osteomyelitis Findings Overlying braden soft eschar was debrided and revealed an open wound of the distal left 4th toe without any significant purulent drainage Description of Procedure The patient was sitting in the hospital bed in his room. I draped the left foot in sterile fashion and used iodine swabs to prep the left 4th toe. I then used a pickups and scissors to carry out debridement of the soft eschar on the left 4th distal toe on the plantar aspect of the foot. This was carried down through skin and down to subcutaneous tissue. After the eschar was debrided, I inspected the wound. This still probed to bone as it did prior to debridement. There were no pockets of purulent drainage noted. I did not encounter any bleeding. The area of debridement measured 1 cm x 1 cm x 0.5 cm. I then applied silver gel and a ga uze dressing. Estimated Blood Loss 0 Urine Output 450 Drains No Packing No Condition Stable Disposition No change [facility] Billing Surgery - Charge Forward: Surgery Billing
[2022-01-15 14:00] VITALS: BP 111/57; PULSE 76; RESP 16; TEMP 36.4; O2SAT 97
[2022-01-15 16:17] LABS: Glucose Point of Care 155 mg/dl (65-105)
[2022-01-15] MEDS: ATORVASTATIN 40 MG TABLET PO (17:02)
[2022-01-15 20:00] VITALS: PULSE 76; RESP 16; O2SAT 97
[2022-01-15] MEDS: INSULIN GLARGINE (*BKC) 100 UNITS/ML 10 UNITS SUB-Q (20:25)
[2022-01-15 22:00] VITALS: BP 158/73; PULSE 64; RESP 18; TEMP 36.3; O2SAT 98
[2022-01-15 22:30] LABS: Vancomycin Trough 12.7 ug/mL (10.0-20.0)
[2022-01-16] MEDS: HYDROcodone/acetaminophen (*CRX) 10-325 MG TABLET 1 TAB PO ×3 (05:22→17:39)
[2022-01-16 06:00] VITALS: BP 157/69; PULSE 64; RESP 18; TEMP 36.1; O2SAT 98
[2022-01-16 06:58] LABS: Basophils Percent Auto 0.6 % (0.2-1.2); Eosinophils Absolute Auto 0.5 K/mm3 (0-0.3); Eosinophils Percent Auto 7.9 % (0-4.4); Hematocrit 41.2 % (42.0-52.0); Hemoglobin 13.4 g/dL (14.0-18.0); Immature Granulocyte Absolute 0.03 K/mm3 (0.00-0.031); Immature Granulocyte Percent A 0.5 % (0-0.5); Lymphocytes Absolute Auto 1.41 K/mm3 (0.9-3.2); Lymphocytes Percent Auto 21.8 % (18.3-44.2); Mean Corpuscular HGB Conc 32.5 g/dl (32-36); Mean Corpuscular Hemoglobin 29.2 pg (26-34); Mean Corpuscular Volume 89.8 fl (80-100); Mean Platelet Volume 9.4 fl (7.4-10.4); Monocytes Absolute Auto 0.7 K/mm3 (0.1-0.6); Monocytes Percent Auto 10.5 % (2.6-8.5); Neutrophils Absolute Auto 3.8 K/mm3 (1.3-6.7); Neutrophils Percent Auto 58.7 % (45.5-73.1); Platelet Count Result 270 k/mm3 (150-375); Red Blood Count 4.59 M/mm3 (4.6-6.20); Red Cell Distribution Width 12.9 % (11.5-14.5); White Blood Count 6.5 K/mm3 (4.5-10.0)
[2022-01-16 07:02] LABS: Alanine Aminotransferase 18 U/L (6-50); Albumin Level 3.8 g/dL (3.5-5.1); Alkaline Phosphatase 75 U/L (38-126); Anion Gap 13 mmol/L (8-16); Aspartate Amino Transferase 20 U/L (17-59); Bilirubin,Total 0.3 mg/dL (0.2-1.3); Blood Urea Nitrogen 13 mg/dL (9-20); Calcium 8.3 mg/dL (8.4-10.2); Carbon Dioxide 23 mmol/L (22-30); Chloride 104 mmol/L (98-107); Estimated CRCL calculation 78 ml/min; Estimated Glomerular Filt Rate > 60; Glucose 154 mg/dL (65-110); Potassium 3.9 mmol/L (3.4-5.0); Sodium 140 mmol/L (137-145)
[2022-01-16 09:11] VITALS: PULSE 88
[2022-01-16] MEDS: ASPIRIN 81 MG ENTERIC TABLET PO (09:11)
[2022-01-16] MEDS: FENOFIBRATE 160 MG TABLET PO (09:11)
[2022-01-16] MEDS: CLOPIDOGREL BISULFATE 75 MG TABLET PO (09:11)
[2022-01-16] MEDS: LOSARTAN POTASSIUM 50 MG TABLET PO (09:11)
[2022-01-16] MEDS: carvediloL 12.5 MG TABLET PO ×2 (09:11→20:42)
[2022-01-16] MEDS: INSULIN ASPART (*BKC) 100 UNITS/ML SUB-Q ×5 (09:11→16:42)
[2022-01-16] MEDS: INSULIN GLARGINE (*BKC) 100 UNITS/ML 8 UNITS SUB-Q (09:14)
[2022-01-16 09:24] LABS: Glucose Point of Care 216 mg/dl (65-105)
[2022-01-16] MEDS: SILVERGEL (ELTA) 45 ML 1 APPLIC TOPICAL (11:30)
[2022-01-16 11:35] LABS: Glucose Point of Care 202 mg/dl (65-105)
[2022-01-16 14:00] VITALS: BP 119/55; PULSE 64; RESP 14; TEMP 36.4; O2SAT 98
--- NOTE | 2022-01-16 14:18 | PM.PNGS ---
Progress Note: A&P Assessment and Plan (1) Osteomyelitis of fourth toe of left foot: Code(s): M86.9 - Osteomyelitis, unspecified Status: Acute Assessment and Plan: Left 4th toe wound with osteomyelitis of the 4th distal phalanx on imaging. S/p bedside debridement yesterday. Will start 1/4 iodoform packing dressing changes daily. Overall, continues to clinically improve. Continue local wound care. Plans for PICC line today and working with care coordination to set up long-term IV antibiotics. We will likely have him follow-up in the wound clinic eventually after discharge. (2) PAD (peripheral artery disease): Code(s): I73.9 - Peripheral vascular disease, unspecified Status: Acute Assessment and Plan: Arterial doppler shows diminished left TBI. Patient aware that he needs to see a vascular surgeon after discharge. (3) CAD (coronary artery disease), autologous vein bypass graft: Code(s): I25.810 - Atherosclerosis of coronary artery bypass graft(s) without angina pectoris Status: Acute (4) Type 2 diabetes mellitus: Code(s): E11.9 - Type 2 diabetes mellitus without complications Status: Acute Plan I have discussed the patient's case and plan of care with Dr. Roberto. Subjective Subjective Date/Time Seen: 01/16/22 12:18 Patient reports: no new complaints, feels better and afebrile Interval history: Feels the redness and swelling of his left foot continues to improve daily. No complaints today. Review of Systems Review of Systems: All systems reviewed & are unremarkable except as noted in HPI and below Exam Const: General: alert Orientation/consciousness: patient oriented x3 Extrem: Other: Redness and swelling of left 4th toe continues to improve, erythema nearly resolved, good cap refill, small open wound to the plantar aspect of the 4th toe that probes to bone without any necrotic tissue and scant amount of purulent drainage on exam today Objective Data Vital Signs Vital Signs: Vital Signs - 24 hr 01/15/22 20:00 01/15/22 22:00 01/16/22 06:00 Temperature 97.3 F L 96.9 F L Pulse Rate 76 64 64 Respiratory Rate 16 18 18 Blood Pressure 158/73 H 157/69 H Pulse Oximetry 97 98 98 Oxygen Delivery Room Air 01/16/22 09:11 01/16/22 09:20 Temperature Pulse Rate 88 Respiratory Rate Blood Pressure Pulse Oximetry Oxygen Delivery Room Air Intake/Output Intake/Output: Intake & Output 01/13/22 01/14/22 01/15/22 01/16/22 23:59 23:59 23:59 23:59 Intake Total 4404 1771 2980 1540 Output Total 1500 1150 1460 250 Balance 2904 621 1520 1290 Meds/Results Medications: Active Medications Generic Name Dose Route Start Last Admin Trade Name Freq PRN Reason Stop Dose Admin Acetaminophen 650 mg 01/12/22 21:27 01/13/22 11:31 Acetaminophen 325 Mg Tablet PO 650 mg Q4H PRN Administration Mild Pain (1-3) or Fever Hydrocodone Bitart/Acetaminophen 1 tab 01/13/22 02:46 01/16/22 11:22 Hydrocodone/Acetaminophen (*Crx) 10-325 Mg Tablet PO 1 tab Q6H PRN Administration Pain Rated 4-6 Aspirin 81 mg 01/13/22 09:00 01/16/22 09:11 Aspirin 81 Mg Enteric Tablet PO 81 mg QAM TY Administration Atorvastatin Calcium 40 mg 01/13/22 18:00 01/15/22 17:02 Atorvastatin 40 Mg Tablet PO 40 mg QPM TY Administration Carvedilol 12.5 mg 01/13/22 09:00 01/16/22 09:11 Carvedilol 12.5 Mg Tablet PO 12.5 mg Q12HR TY Administration Clopidogrel Bisulfate 75 mg 01/13/22 09:00 01/16/22 09:11 Clopidogrel Bisulfate 75 Mg Tablet PO 75 mg DAILY TY Administration Dextrose 12.5 gm 01/14/22 11:25 Dextrose 50% 25 Gm/50 Ml Syringe IV PUSH PRN PRN Hypoglycemia Protocol Fenofibrate 160 mg 01/13/22 09:00 01/16/22 09:11 Fenofibrate 160 Mg Tablet PO 160 mg DAILY TY Administration Glucagon 1 mg 01/14/22 11:25 Glucagon For Inj 1 Mg Vial IM PRN PRN Hy
--- NOTE | 2022-01-16 15:09 | PM.IMPN ---
Progress Note: A&P Assessment and Plan (1) Foot osteomyelitis, left: Code(s): M86.9 - Osteomyelitis, unspecified Status: Acute Assessment and Plan: Continue vancomycin and Zosyn, appreciate surgery consultation, follow-up blood cultures, preliminary report negative, final report pending. Wound culture pending PICC line ordered pt tayler benefit from skilled nursing ABX YONG ordered to check blood flow in his legs (2) PAF (paroxysmal atrial fibrillation): Code(s): I48.0 - Paroxysmal atrial fibrillation Status: Acute Assessment and Plan: stable, not on anticoagulation (3) CAD (coronary artery disease), autologous vein bypass graft: Code(s): I25.810 - Atherosclerosis of coronary artery bypass graft(s) without angina pectoris Status: Acute Assessment and Plan: stable, continue home meds (4) PAD (peripheral artery disease): Code(s): I73.9 - Peripheral vascular disease, unspecified Status: Acute Assessment and Plan: will need outpatient vascular surgery consultation and management (5) 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 on no medications (7) Diabetic polyneuropathy associated with type 2 diabetes mellitus: Code(s): E11.42 - Type 2 diabetes mellitus with diabetic polyneuropathy Status: Chronic Assessment and Plan: Accu-Cheks AC and HS carb consistent diet continue Lantus and lispro, sliding scale insulin, goal is to keep glucose under 180 (8) Chronic pain disorder: Code(s): G89.4 - Chronic pain syndrome Status: Chronic Assessment and Plan: on chronic opiates (9) Diastolic heart failure: Code(s): I50.30 - Unspecified diastolic (congestive) heart failure Status: Acute Assessment and Plan: appears euvolemic, grade 1 dysfunction noted on echo from 2019, repeat echo pending Plan DVT prophylaxis with SCDs GI prophylaxis not indicated Code status full code Subjective Date/time seen: 01/16/22 15:09 66-year-old male with past medical history significant for coronary artery disease, status post coronary artery bypass graft, type 2 diabetes mellitus, peripheral vascular disease,? diabetic peripheral neuropathy.? patient presents to the emergency room due to left foot 4th toe ulcer with swelling and redness patient does not feel pain due to neuropathy, patient denies any fevers, rigors, chills, no nausea, no vomiting,? no cough, no sputum production, good appetite, no shortness of breath, no abdominal pain. patient had presented to the emergency room 4 days ago for this reason was discharged home after he was evaluated however returns today due to worsening.? Preliminary workup has been significant for CBC WBC 7.5, hemoglobin of 13, hematocrit 40 C reactive protein 1.5,? x-ray of the left foot was reported as: IMPRESSION: 1. Osteomyelitis of fourth distal phalanx. 2. Polyarticular osteoarthritis. Pt needs Picc line and skilled nursing IV abx set up Pt will need YONG dopplers prior to discharge to check blood flow in his legs Review of Systems Review of Systems: Foot pains Exam Narrative: General: No acute distress, alert and oriented per baseline HEENT: Atraumatic, normocephalic, mucous membranes moist CV: Regular rate and rhythm, S1, S2 Lungs: Clear to auscultation bilaterally, no rales or crackles noted, no wheezes, good air entry Abdomen: Soft, nontender, nondistended Extremities: No edema Skin: skin blanching with area of necrosis noted on 4th left toe, with dressing on Psych: Euthymic, normal affect Objective Data Vital Si
[2022-01-16 16:37] LABS: Glucose Point of Care 164 mg/dl (65-105)
[2022-01-16] MEDS: ATORVASTATIN 40 MG TABLET PO (16:43)
[2022-01-16 20:00] VITALS: PULSE 64; RESP 14; O2SAT 98
[2022-01-16] MEDS: INSULIN GLARGINE (*BKC) 100 UNITS/ML 10 UNITS SUB-Q (20:42)
[2022-01-16 22:00] VITALS: BP 124/67; PULSE 69; RESP 18; TEMP 36.3; O2SAT 100
[2022-01-17] MEDS: HYDROcodone/acetaminophen (*CRX) 10-325 MG TABLET 1 TAB PO ×4 (00:43→22:44)
[2022-01-17 05:31] LABS: Basophils Percent Auto 0.7 % (0.2-1.2); Eosinophils Absolute Auto 0.4 K/mm3 (0-0.3); Eosinophils Percent Auto 6.8 % (0-4.4); Hematocrit 40.6 % (42.0-52.0); Hemoglobin 13.1 g/dL (14.0-18.0); Immature Granulocyte Absolute 0.02 K/mm3 (0.00-0.031); Immature Granulocyte Percent A 0.3 % (0-0.5); Lymphocytes Absolute Auto 1.46 K/mm3 (0.9-3.2); Lymphocytes Percent Auto 23.7 % (18.3-44.2); Mean Corpuscular HGB Conc 32.3 g/dl (32-36); Mean Corpuscular Hemoglobin 29.4 pg (26-34); Mean Corpuscular Volume 91.2 fl (80-100); Monocytes Absolute Auto 0.6 K/mm3 (0.1-0.6); Monocytes Percent Auto 9.6 % (2.6-8.5); Neutrophils Absolute Auto 3.6 K/mm3 (1.3-6.7); Neutrophils Percent Auto 58.9 % (45.5-73.1); Platelet Count Result 205 k/mm3 (150-375); Red Blood Count 4.45 M/mm3 (4.6-6.20); Red Cell Distribution Width 12.9 % (11.5-14.5); White Blood Count 6.2 K/mm3 (4.5-10.0)
[2022-01-17 05:42] LABS: Alanine Aminotransferase 19 U/L (6-50); Albumin Level 3.7 g/dL (3.5-5.1); Alkaline Phosphatase 72 U/L (38-126); Anion Gap 8 mmol/L (8-16); Aspartate Amino Transferase 23 U/L (17-59); Bilirubin,Total 0.4 mg/dL (0.2-1.3); Blood Urea Nitrogen 17 mg/dL (9-20); Calcium 8.3 mg/dL (8.4-10.2); Carbon Dioxide 26 mmol/L (22-30); Chloride 105 mmol/L (98-107); Estimated CRCL calculation 78 ml/min; Estimated Glomerular Filt Rate > 60; Glucose 182 mg/dL (65-110); Sodium 139 mmol/L (137-145)
[2022-01-17 06:00] VITALS: BP 163/48; PULSE 98; RESP 18; TEMP 36; O2SAT 97
[2022-01-17 06:10] VITALS: BP 140/73; PULSE 80; RESP 18; TEMP 36.2; O2SAT 97
[2022-01-17 08:02] LABS: Glucose Point of Care 154 mg/dl (65-105)
[2022-01-17 08:19] VITALS: PULSE 82
[2022-01-17] MEDS: LOSARTAN POTASSIUM 50 MG TABLET PO (08:19)
[2022-01-17] MEDS: FENOFIBRATE 160 MG TABLET PO (08:19)
[2022-01-17] MEDS: carvediloL 12.5 MG TABLET PO ×2 (08:19→20:20)
[2022-01-17] MEDS: ASPIRIN 81 MG ENTERIC TABLET PO (08:19)
[2022-01-17] MEDS: CLOPIDOGREL BISULFATE 75 MG TABLET PO (08:19)
[2022-01-17] MEDS: INSULIN ASPART (*BKC) 100 UNITS/ML SUB-Q ×4 (08:20→17:11)
[2022-01-17] MEDS: INSULIN GLARGINE (*BKC) 100 UNITS/ML 8 UNITS SUB-Q (08:21)
[2022-01-17] MEDS: CENTRAL LINE FLUSH 10 ML IV PUSH ×3 (08:24→21:33)
[2022-01-17 10:09] LABS: Vancomycin Trough 15.2 ug/mL (10.0-20.0)
--- NOTE | 2022-01-17 10:22 | PC.NURSE ---
Medications administered 01/17/22 [id number] by Rach Horvath RN.
[2022-01-17 11:25] LABS: Glucose Point of Care 233 mg/dl (65-105)
[2022-01-17] MEDS: ACETAMINOPHEN 325 MG TABLET 650 MG PO (11:40)
--- NOTE | 2022-01-17 12:54 | PM.IMPN ---
Progress Note: A&P Assessment and Plan (1) Foot osteomyelitis, left: Code(s): M86.9 - Osteomyelitis, unspecified Status: Acute Assessment and Plan: Continue vancomycin and Zosyn, appreciate surgery consultation, follow-up blood cultures, preliminary report negative, final report pending. Wound culture pending Status post bedside debridement 01/15/2022 PICC line ordered pt tayler benefit from halfway ABX YONG with moderate peripheral arterial disease on the left yellowing discharge (2) PAF (paroxysmal atrial fibrillation): Code(s): I48.0 - Paroxysmal atrial fibrillation Status: Acute Assessment and Plan: stable, not on anticoagulation (3) CAD (coronary artery disease), autologous vein bypass graft: Code(s): I25.810 - Atherosclerosis of coronary artery bypass graft(s) without angina pectoris Status: Acute Assessment and Plan: stable, continue home meds (4) PAD (peripheral artery disease): Code(s): I73.9 - Peripheral vascular disease, unspecified Status: Acute Assessment and Plan: will need outpatient vascular surgery consultation and management Doppler ultrasound with diminished left toe brachial index consistent with moderate peripheral artery disease below the ankle Normal right ankle and toe brachial indices (5) 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 on no medications (7) Diabetic polyneuropathy associated with type 2 diabetes mellitus: Code(s): E11.42 - Type 2 diabetes mellitus with diabetic polyneuropathy Status: Chronic Assessment and Plan: Accu-Cheks AC and HS carb consistent diet continue Lantus and lispro, sliding scale insulin, goal is to keep glucose under 180 (8) Chronic pain disorder: Code(s): G89.4 - Chronic pain syndrome Status: Chronic Assessment and Plan: on chronic opiates (9) Diastolic heart failure: Code(s): I50.30 - Unspecified diastolic (congestive) heart failure Status: Acute Assessment and Plan: appears euvolemic, grade 1 dysfunction noted on echo from 2019, repeat echo with EF 60-65% no valvular abnormality Plan DVT prophylaxis with SCDs GI prophylaxis not indicated Code status full code Subjective Date/time seen: 01/17/22 12:54 Interval history: No overnight events noted. No chest pain or shortness of breath. No nausea, vomiting or diarrhea. No fevers or chills. Review of Systems Review of Systems: All systems reviewed & are unremarkable except as noted in HPI and below Exam Narrative: General: No acute distress, alert and oriented per baseline HEENT: Atraumatic, normocephalic, mucous membranes moist CV: Regular rate and rhythm, S1, S2 Lungs: Clear to auscultation bilaterally, no rales or crackles noted, no wheezes, good air entry Abdomen: Soft, nontender, nondistended Extremities: No edema Skin: skin blanching with area of necrosis noted on 4th left toe, with dressing on Psych: Euthymic, normal affect Objective Data Vital Signs Vital Signs: Vital Signs - 24 hr 01/16/22 14:00 01/16/22 20:00 01/16/22 22:00 Temperature 97.6 F 97.4 F L Pulse Rate 64 64 69 Respiratory Rate 14 14 18 Blood Pressure 119/55 L 124/67 Pulse Oximetry 98 98 100 Oxygen Delivery Room Air 01/17/22 06:00 01/17/22 06:10 01/17/22 08:19 Temperature 96.8 F L 97.1 F L Pulse Rate 98 80 82 Respiratory Rate 18 18 Blood Pressure 163/48 H 140/73 Pulse Oximetry 97 97 Oxygen Delivery 01/17/22 08:25 Temperature Pulse Rate Respiratory Rate Blood Pressure Pulse Oximetry Oxyge
--- NOTE | 2022-01-17 13:09 | PM.PNGS ---
Progress Note: A&P Assessment and Plan (1) Osteomyelitis of fourth toe of left foot: Code(s): M86.9 - Osteomyelitis, unspecified Status: Acute Assessment and Plan: Left 4th toe wound with osteomyelitis of the 4th distal phalanx on imaging. Continues to clinically improve with redness and swelling almost completely resolved. Continue local wound care. May switch to Santyl dressing changes. Continue IV antibiotics per primary service. Wound cx pending. CC has home health set up for discharge. Okay to discharge from a surgical standpoint when okay with Hospitalist and plan to follow-up with patient in the wound clinic after discharge. (2) PAD (peripheral artery disease): Code(s): I73.9 - Peripheral vascular disease, unspecified Status: Acute Assessment and Plan: Arterial doppler shows diminished left TBI. Patient aware that he needs to see a vascular surgeon after discharge. (3) CAD (coronary artery disease), autologous vein bypass graft: Code(s): I25.810 - Atherosclerosis of coronary artery bypass graft(s) without angina pectoris Status: Acute (4) Type 2 diabetes mellitus: Code(s): E11.9 - Type 2 diabetes mellitus without complications Status: Acute Plan I have discussed the patient's case and plan of care with Dr. Roberto. Subjective Subjective Date/Time Seen: 01/17/22 11:09 Patient reports: no new complaints and afebrile Interval history: Patient doing well today. PICC line was placed yesterday. Continues to improve daily. Review of Systems Review of Systems: All systems reviewed & are unremarkable except as noted in HPI and below Exam Const: General: comfortable and awake Orientation/consciousness: patient oriented x3 Extrem: Other: Redness and swelling nearly completely resolved, small open wound to the plantar aspect of the 4th toe that probes to bone with again scant amount of purulent bloody drainage but open and draining, wound bed is yellow and pale Objective Data Vital Signs Vital Signs: Vital Signs - 24 hr 01/16/22 14:00 01/16/22 20:00 01/16/22 22:00 Temperature 97.6 F 97.4 F L Pulse Rate 64 64 69 Respiratory Rate 14 14 18 Blood Pressure 119/55 L 124/67 Pulse Oximetry 98 98 100 Oxygen Delivery Room Air 01/17/22 06:00 01/17/22 06:10 01/17/22 08:19 Temperature 96.8 F L 97.1 F L Pulse Rate 98 80 82 Respiratory Rate 18 18 Blood Pressure 163/48 H 140/73 Pulse Oximetry 97 97 Oxygen Delivery 01/17/22 08:25 Temperature Pulse Rate Respiratory Rate Blood Pressure Pulse Oximetry Oxygen Delivery Room Air Intake/Output Intake/Output: Intake & Output 01/14/22 01/15/22 01/16/22 01/17/22 23:59 23:59 23:59 23:59 Intake Total 1771 2980 3290 640 Output Total 1150 8694 717 5516 Balance 621 1520 3040 -960 Meds/Results Medications: Active Medications Generic Name Dose Route Start Last Admin Trade Name Freq PRN Reason Stop Dose Admin Acetaminophen 650 mg 01/12/22 21:27 01/17/22 11:40 Acetaminophen 325 Mg Tablet PO 650 mg Q4H PRN Administration Mild Pain (1-3) or Fever Hydrocodone Bitart/Acetaminophen 1 tab 01/13/22 02:46 01/17/22 06:11 Hydrocodone/Acetaminophen (*Crx) 10-325 Mg Tablet PO 1 tab Q6H PRN Administration Pain Rated 4-6 Aspirin 81 mg 01/13/22 09:00 01/17/22 08:19 Aspirin 81 Mg Enteric Tablet PO 81 mg QAM TY Administration Atorvastatin Calcium 40 mg 01/13/22 18:00 01/16/22 16:43 Atorvastatin 40 Mg Tablet PO 40 mg QPM TY Administration Carvedilol 12.5 mg 01/13/22 09:00 01/17/22 08:19 Carvedilol 12.5 Mg Tablet PO 12.5 mg Q12HR TY Administration Clopidogrel Bisulfate 75 mg 01/13/22 09:00 01/17/22 08:19 Clopidogrel Bisulfate 75 Mg Tablet PO 75 mg DAILY TY Administration Dextrose 12.5 gm 01/14/22 11:25 Dextrose 50% 25 Gm/50 Ml Syringe IV PUSH PRN PRN Hypoglycemia Protocol Fenofibrate
[2022-01-17 14:00] VITALS: BP 122/49; PULSE 64; RESP 16; TEMP 36.4; O2SAT 98
[2022-01-17] MEDS: COLLAGENASE OINT 30 GM TUBE 1 APPLIC TOPICAL (14:30)
[2022-01-17 17:07] LABS: Glucose Point of Care 165 mg/dl (65-105)
[2022-01-17] MEDS: ATORVASTATIN 40 MG TABLET PO (17:10)
[2022-01-17 20:20] VITALS: PULSE 66
[2022-01-17] MEDS: INSULIN GLARGINE (*BKC) 100 UNITS/ML 10 UNITS SUB-Q (20:20)
[2022-01-17 20:26] LABS: Glucose Point of Care 231 mg/dl (65-105)
[2022-01-17 21:29] VITALS: BP 141/73; PULSE 66; RESP 18; TEMP 36.8; O2SAT 96
[2022-01-18] MEDS: CENTRAL LINE FLUSH 10 ML IV PUSH ×2 (05:41→13:39)
[2022-01-18] MEDS: HYDROcodone/acetaminophen (*CRX) 10-325 MG TABLET 1 TAB PO ×2 (05:41→11:17)
[2022-01-18 06:00] VITALS: BP 138/72; PULSE 64; RESP 20; TEMP 36.8; O2SAT 96
[2022-01-18 07:27] LABS: Alanine Aminotransferase 18 U/L (6-50); Albumin Level 3.8 g/dL (3.5-5.1); Alkaline Phosphatase 71 U/L (38-126); Anion Gap 11 mmol/L (8-16); Aspartate Amino Transferase 21 U/L (17-59); Bilirubin,Total 0.5 mg/dL (0.2-1.3); Blood Urea Nitrogen 11 mg/dL (9-20); Calcium 8.4 mg/dL (8.4-10.2); Carbon Dioxide 28 mmol/L (22-30); Chloride 100 mmol/L (98-107); Estimated CRCL calculation 70 ml/min; Estimated Glomerular Filt Rate > 60; Glucose 112 mg/dL (65-110); Potassium 4.2 mmol/L (3.4-5.0); Sodium 139 mmol/L (137-145)
[2022-01-18 07:28] LABS: Basophils Percent Auto 0.6 % (0.2-1.2); Eosinophils Absolute Auto 0.4 K/mm3 (0-0.3); Hematocrit 40.5 % (42.0-52.0); Hemoglobin 13.3 g/dL (14.0-18.0); Immature Granulocyte Absolute 0.03 K/mm3 (0.00-0.031); Immature Granulocyte Percent A 0.5 % (0-0.5); Lymphocytes Absolute Auto 1.16 K/mm3 (0.9-3.2); Lymphocytes Percent Auto 18.4 % (18.3-44.2); Mean Corpuscular HGB Conc 32.8 g/dl (32-36); Mean Corpuscular Hemoglobin 29.3 pg (26-34); Mean Corpuscular Volume 89.2 fl (80-100); Mean Platelet Volume 9.3 fl (7.4-10.4); Monocytes Absolute Auto 0.7 K/mm3 (0.1-0.6); Monocytes Percent Auto 10.8 % (2.6-8.5); Neutrophils Percent Auto 62.7 % (45.5-73.1); Platelet Count Result 268 k/mm3 (150-375); Red Blood Count 4.54 M/mm3 (4.6-6.20); Red Cell Distribution Width 12.7 % (11.5-14.5); White Blood Count 6.3 K/mm3 (4.5-10.0)
[2022-01-18 07:40] LABS: Glucose Point of Care 149 mg/dl (65-105)
[2022-01-18] MEDS: CLOPIDOGREL BISULFATE 75 MG TABLET PO (08:55)
[2022-01-18] MEDS: ASPIRIN 81 MG ENTERIC TABLET PO (08:55)
[2022-01-18] MEDS: FENOFIBRATE 160 MG TABLET PO (08:55)
[2022-01-18] MEDS: LOSARTAN POTASSIUM 50 MG TABLET PO (08:55)
[2022-01-18] MEDS: carvediloL 12.5 MG TABLET PO (08:55)
[2022-01-18] MEDS: COLLAGENASE OINT 30 GM TUBE 1 APPLIC TOPICAL (08:55)
[2022-01-18] MEDS: INSULIN ASPART (*BKC) 100 UNITS/ML SUB-Q ×2 (08:55→12:16)
[2022-01-18] MEDS: INSULIN GLARGINE (*BKC) 100 UNITS/ML 8 UNITS SUB-Q (08:57)
--- NOTE | 2022-01-18 09:44 | PCNWS ---
Weekly nutritional screen. Patient is tolerating current diet with adequate intake. No weight loss reported. No nutritional needs at this time.
[2022-01-18 11:14] LABS: Glucose Point of Care 197 mg/dl (65-105)
--- NOTE | 2022-01-18 13:55 | PM.DS ---
DS: Admitting Diagnosis Discharge Date 01/18/2022 Admitting Diagnosis left foot infection DS: Discharge Diagnosis Discharge Diagnosis (1) Foot osteomyelitis, left: Code(s): M86.9 - Osteomyelitis, unspecified Status: Acute (2) PAF (paroxysmal atrial fibrillation): Code(s): I48.0 - Paroxysmal atrial fibrillation Status: Acute (3) CAD (coronary artery disease), autologous vein bypass graft: Code(s): I25.810 - Atherosclerosis of coronary artery bypass graft(s) without angina pectoris Status: Acute (4) PAD (peripheral artery disease): Code(s): I73.9 - Peripheral vascular disease, unspecified Status: Acute (5) Status post percutaneous transluminal angioplasty (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) with stent placement: Code(s): Z95.820 - Peripheral vascular angioplasty status with implants and grafts Status: Acute (6) COPD (chronic obstructive pulmonary disease): Code(s): J44.9 - Chronic obstructive pulmonary disease, unspecified Status: Acute (7) Diabetic polyneuropathy associated with type 2 diabetes mellitus: Code(s): E11.42 - Type 2 diabetes mellitus with diabetic polyneuropathy Status: Chronic (8) Chronic pain disorder: Code(s): G89.4 - Chronic pain syndrome Status: Chronic (9) Diastolic heart failure: Code(s): I50.30 - Unspecified diastolic (congestive) heart failure Status: Acute DS: Summary Hospital Course Hospital Course: # left 4th toe osteomyelitis: Continue vancomycin and Zosyn, appreciate surgery consultation, follow-up blood cultures,? Wound culture with mixed organism of questionable significance recovered on culture. Growth did not detect the presence of Staph aureus, beta-hemolytic streptococci or Pseudomonas aeruginosa. Status post bedside debridement 01/15/2022 PICC line ordered And plan for 6 weeks antibiotic course for osteomyelitis Antibiotic decided to be vancomycin along with ceftriaxone and Flagyl. Flagyl to cover for anaerobes. YONG? with moderate peripheral arterial disease on the left yellowing discharge continue wound care at home home health # paroxysmal atrial fibrillation: ?stable, not on anticoagulation # coronary artery disease status post CABG: ?stable, continue home meds # peripheral artery disease: will need outpatient vascular surgery consultation and management Doppler ultrasound with diminished left toe brachial index consistent with moderate peripheral artery disease below the ankle Normal right ankle and toe brachial indices # status post percutaneous transluminal angioplasty with stent placement: stable # COPD: stable. on no medications # Diabetic polyneuropathy associated with type 2 diabetes mellitus: Accu-Cheks AC and HS carb consistent diet continue Lantus and lispro, sliding scale insulin, goal is to keep glucose under 180 # chronic pain disorder: ?on chronic opiates # diastolic heart failure: ?appears euvolemic, grade 1 dysfunction noted on echo from 2019, repeat echo? with EF 60-65% no valvular abnormality #DVT prophylaxis with SCDs #GI prophylaxis not indicated #Code status full code ? Time Spent with Patient Time attestation: Total time spent providing and/or coordinating discharge services: 45 minutes Exam Narrative: General: No acute distress, alert and oriented per baseline HEENT: Atraumatic, normocephalic, mucous membranes moist CV: Regular rate and rhythm, S1, S2 Lungs: Clear to auscultation bilaterally, no rales or crackles noted, no wheezes, good air entry Abdomen: Soft, nontender, nondistended Extremities: No edema Skin: skin blanching with area of necrosis noted on 4th left toe, with dressing on Psych: Euthymic, normal affect DS: Data Data Completed and Pending Completed studies during hospitalization: Exam Type: ? ? CA echo doppler color flow Study Info Indications ? ? I50.30 - Unspecified diastolic (congestive) heart failure C
[2022-01-18 14:00] VITALS: BP 116/64; PULSE 68; RESP 20; TEMP 36.6; O2SAT 98
[2022-01-18] MEDS: cefTRIAXone 2 GM in SODIUM CHLORIDE 0.9% IV 100 ML 200 ML IVPB (14:53)
[2022-01-18] MEDS: metroNIDAZOLE 250 MG TABLET 500 MG PO (15:11)
== END 2022-01-18 15:30 | disposition home health service (06) | DRG 623 ==
LOC: ANHED 21:33 → ANH3MEDSUR 01-13 01:21
PROVIDERS: Emergency Medicine; Hospitalist; Physician Assistant; Student in an Organized Health Care Education/Training Program; Admitting Provider Internal Medicine; Emergency Provider Emergency Medicine; PCP Family Medicine; Visit Provider Internal Medicine
DX: E11.69 Type 2 diabetes mellitus with other specified complication (principal); I25.810 Atherosclerosis of coronary artery bypass graft(s) without angina pectoris; M86.9 Osteomyelitis, unspecified; I50.32 Chronic diastolic (congestive) heart failure; I11.0 Hypertensive heart disease with heart failure; E11.42 Type 2 diabetes mellitus with diabetic polyneuropathy; Z95.1 Presence of aortocoronary bypass graft; E78.2 Mixed hyperlipidemia; I48.0 Paroxysmal atrial fibrillation; J44.9 Chronic obstructive pulmonary disease, unspecified; G89.4 Chronic pain syndrome; Z86.73 Personal history of transient ischemic attack (TIA), and cerebral infarction without residual deficits; Z80.9 Family history of malignant neoplasm, unspecified; Z95.820 Peripheral vascular angioplasty status with implants and grafts; Z82.49 Family history of ischemic heart disease and other diseases of the circulatory system; Z87.891 Personal history of nicotine dependence; Z79.4 Long term (current) use of insulin; Z79.82 Long term (current) use of aspirin; Z79.891 Long term (current) use of opiate analgesic; Z79.899 Other long term (current) drug therapy; E11.51 Type 2 diabetes mellitus with diabetic peripheral angiopathy without gangrene; Z20.822 Contact with and (suspected) exposure to COVID-19
CPT/HCPCS: 36415; 36569; 73630; 73701; 80048; 80053; 80202; 82565; 82948; 83036; 83605; 85025; 85652; 86140; 87040; 87070; 87075; 87205; 87502; 93306; 93923; 99285; A9270; C1751; J0696; J1815; J2543; J3370; Q9967; U0003; U0005

== ENCOUNTER 2022-01-22 16:12 | Emergency (ER) | payer MEDICARE, MEDICAID, SELFPAY ==
[2022-01-22] VITALS (24 sets, daily range): BP systolic 126–168; BP diastolic 65–88; PULSE 72–77; RESP 16–22; TEMP 36.3–36.6; O2SAT 96–100
--- NOTE | ~2022-01-22 | XR_ITS ---
EXAMINATION: XR chest 1V portable Exam Date/Time: 01/22/2022 20:40 MEDICAL AND HEALTH SERVICES MANAGER HISTORY: PICC pulled out several cm. Is it still central? Comparison: 01/16/2022. RESULT: Lines, tubes, and devices: Intact sternotomy wires. Mediastinal surgical clips. Left upper extremity PICC terminating in the left subclavian vein. Lungs and pleura: Clear. Cardiomediastinal silhouette: Stable. Other: No acute osseous or upper abdominal finding. IMPRESSION: Left upper extremity PICC terminates in the left subclavian vein. Reviewed, dictated and finalized at location K. CAL AND HEALTH SERVICES MANAGER
--- NOTE | 2022-01-22 20:39 | ED.GENADULT ---
HPI - General Adult General Chief complaint: Unspecified Stated complaint: picc line coming out Time Seen by Provider: 01/22/22 20:33 History of Present Illness HPI narrative: This is a 66-year-old male presenting to ED for the PICC line evaluation. The home nurse was concerned that it may have been pulled out several cm. She was unwilling for medication throughout. [facility] to get evaluated. The patient has no complaints at this time. He is using the PICC line for osteomyelitis of his 4th toe on his left foot. He denies systemic signs of illness such as fever chills nausea vomiting diarrhea per Related Data Home Medications Medication Instructions Recorded Confirmed empagliflozin 10 mg tablet 25 mg PO DAILY 06/04/21 01/13/22 (Jardiance) insulin lispro 100 unit/mL 5 unit subcut TIDWMEAL PRN 06/04/21 01/13/22 subcutaneous pen (Humalog KwikPen Hyperglycemia (U-100) Insulin) aspirin 81 mg tablet 81 mg PO DAILY 07/21/21 01/13/22 carvedilol 12.5 mg tablet 12.5 mg PO BID 01/13/22 01/13/22 clopidogrel 75 mg tablet 75 mg PO DAILY 01/13/22 01/13/22 fenofibrate 160 mg tablet 160 mg PO DAILY 01/13/22 01/13/22 losartan 50 mg tablet 50 mg PO DAILY 01/13/22 01/13/22 Allergies Allergy/AdvReac Type Severity Reaction Status Date / Time No Known Drug Allergies Allergy Unknown Unknown Verified 01/22/22 16:18 Review of Systems Review of Systems: CONSTITUTIONAL: Denies night sweats. EYES: No eye pain ENT: Denies rhinorrhea CARDIOVASCULAR: Denies palpitations RESPIRATORY: Denies hemoptysis GASTROINTESTINAL: Denies hematemesis GENITOURINARY: Denies hematuria. SKIN: Denies rash MUSCULOSKELETAL: Denies myalgia. NEUROLOGIC: Denies weakness. 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 Mixed hyperlipidemia PAD (peripheral artery disease) Peripheral neuropathy Pneumonia Psoriasis Rotator cuff arthropathy of right shoulder Rotator cuff tear, right UTI (urinary tract infection) Surgical History Surgical History H/O rotator cuff surgery right History of cardiac catheterization History of carpal tunnel release History of mandibular surgery Status 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 percutaneous 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) with stent placement right cervical carotid artery Family History Family History Father Patient's father is Acute myocardial infarction Cancer Social History Social History Social History: Smoking packs per day: 3 Smoking cigarettes per day: 60.0 Years smoked: 10 Smoking pack-years: 30.00 Smoking status: Former smoker Second hand tobacco smoke exposure: No Alcohol intake: never Substance use: never Substance use type: does not use Has the Lack of Transportation Kept You From Medical Appointments or From Getting Medications?: No Within the Past 12 Months, Were You Worried Whether Your Food Would Run Out Before You Got Money to Buy More?: Sometimes True What is Your Housing Situation Today?: I Have Housing Are You Worried That in the Next 2 Months, You May Not Have Your Own Housing to Live In?: No Do You Have Trouble Paying Your Heating Or Electricity Bill?: Yes Do You Have Trouble Paying For Medicines?: No Are You Currently Unemployed and Looking for Work?: No Highest Level of Education Completed: Trade/Vocational Certificate Do You Have Trouble With Childcare or the Care of a Family Member?: No Gender identity (if verbal
== END 2022-01-22 23:15 | disposition home or self-care (01) ==
PROVIDERS: Emergency Provider Emergency Medicine; PCP Family Medicine
DX: Z45.2 Encounter for adjustment and management of vascular access device (principal); E11.69 Type 2 diabetes mellitus with other specified complication; M86.9 Osteomyelitis, unspecified; E11.42 Type 2 diabetes mellitus with diabetic polyneuropathy; I11.0 Hypertensive heart disease with heart failure; I50.30 Unspecified diastolic (congestive) heart failure; E11.51 Type 2 diabetes mellitus with diabetic peripheral angiopathy without gangrene; I73.9 Peripheral vascular disease, unspecified; E78.2 Mixed hyperlipidemia; M19.90 Unspecified osteoarthritis, unspecified site; Z95.5 Presence of coronary angioplasty implant and graft; Z87.01 Personal history of pneumonia (recurrent); Z86.73 Personal history of transient ischemic attack (TIA), and cerebral infarction without residual deficits; Z87.891 Personal history of nicotine dependence; Z79.4 Long term (current) use of insulin; Z79.84 Long term (current) use of oral hypoglycemic drugs
CPT/HCPCS: 71045; 99281; 99283

== ENCOUNTER 2022-04-07 13:03 | Emergency (ER) | payer MEDICARE, MEDICAID, SELFPAY ==
--- NOTE | ~2022-04-07 | XR_ITS ---
EXAMINATION: XR foot LT 2V DATE: 04/07/2022 13:38 INDICATION: Left second toe infection. TECHNIQUE: 2 views of left foot were obtained. COMPARISON: Left foot radiographs 01/12/2022 FINDINGS: There is mild hallux valgus. No fracture. There is moderate osteoarthritis of first metatar sophalangeal joint and mild osteoarthritis and some the interphalangeal joints and midfoot joints. Th ere are erosions of tuft of first distal phalanx. Again seen are erosions of the tuft of fourth dista l phalanx. There are enthesophytes at the posterior and plantar aspects of calcaneal tuberosity. IMPRESSION: 1. New erosions of tuft of second distal phalanx, consistent with osteomyelitis. 2. Redemonstration of erosions of tuft of fourth distal phalanx, consistent with chronic osteomyeliti s. Reviewed, dictated and finalized at location A. RVISOR FILLING AND PACKING IMPRESSION: 1. New erosions of tuft of second distal phalanx, consistent with osteomyelitis . 2. Redemonstration of erosions of tuft of fourth distal phalanx, consistent wit h chronic osteomyelitis.
[2022-04-07 13:12] VITALS: BP 115/57; PULSE 79; RESP 16; TEMP 36.7; O2SAT 98
[2022-04-07 13:14] VITALS: BP 115/57; PULSE 84; RESP 18; TEMP 36.7; O2SAT 98
--- NOTE | 2022-04-07 13:35 | ED.WOUNDLAC ---
HPI - Wound/Laceration General Chief Complaint: Wound/Laceration Stated Complaint: L foot second toe infection Time Seen by Provider: 04/07/22 13:15 Source: patient and family Mode of arrival: ambulatory Limitations: no limitations History of Present Illness HPI narrative: this is a 66-year-old gentleman with history of diabetes and chronic toe ulcer that has been on antibiotics in the past, has recently noticed his left 2nd toe is erythematous with a distal ulcerated lesion patient currently has no fever chills the toe is mildly tender with no drainage has good range of motion although has evidence of neuropathy and has diminished feeling in the toe. Onset (ago): week(s) Location: other ( Left 2nd distal toe) Extremity Location: Left: foot ( left distal toe lesion and redness) Place: home Related Data Home Medications Medication Instructions Recorded Confirmed empagliflozin 10 mg tablet 25 mg PO DAILY 06/04/21 04/07/22 (Jardiance) insulin lispro 100 unit/mL 5 unit subcut TIDWMEAL PRN 06/04/21 04/07/22 subcutaneous pen (Humalog KwikPen Hyperglycemia (U-100) Insulin) aspirin 81 mg tablet 81 mg PO DAILY 07/21/21 04/07/22 carvedilol 12.5 mg tablet 12.5 mg PO BID 01/13/22 04/07/22 clopidogrel 75 mg tablet 75 mg PO DAILY 01/13/22 04/07/22 Allergies Allergy/AdvReac Type Severity Reaction Status Date / Time No Known Drug Allergies Allergy Unknown Unknown Verified 04/07/22 13:17 Review of Systems Review of Systems: All systems reviewed & are unremarkable except as noted in HPI and below PMFSH Past Medical History Medical History Arthritis Chronic pain disorder CVA (cerebral vascular accident) Diabetes mellitus Diabetic polyneuropathy associated with type 2 diabetes mellitus Diastolic heart failure DISH (diffuse idiopathic skeletal hyperostosis) 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 Mixed hyperlipidemia PAD (peripheral artery disease) Peripheral neuropathy Pneumonia Psoriasis Rotator cuff arthropathy of right shoulder Rotator cuff tear, right UTI (urinary tract infection) Surgical History Surgical History H/O rotator cuff surgery right History of cardiac catheterization History of carpal tunnel release History of mandibular surgery 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 placement right cervical carotid artery Family History Family History Father Patient's father is Acute myocardial infarction Cancer Social History Social History Social History: Smoking packs per day: 3 Smoking cigarettes per day: 60.0 Years smoked: 10 Smoking pack-years: 30.00 Smoking status: Former smoker Second hand tobacco smoke exposure: No Alcohol intake: never Substance use: never Substance use type: does not use Lack of Transportation: No Lack of Food: Sometimes True Current Housing: I Have Housing Concerned About Future Housing: No Difficulty Paying Gas/Electric Bills: YES Difficulty Paying for Meds: No Currently Unemployed: No Education: Trade/Vocational Certificate Difficulty w/ Childcare or Family Care: No Living arrangements: with family Occupation/Education: retired Gender identity (if verbalized by the patient): Male Sexual Orientation (if Verbalized by the Patient): Straight or Heterosexual Spiritual care concerns: No Exam Const: General: healthy appearing Nutritional Appearance: well nourished Orientation/consciousness: patient oriented x3 HENMT: Head: normal to inspection Ears: external ears normal Face/Nose/Sinus: Normal external nose present Face and sinus: normal facial exam Mouth: Yes Normal oral and palatal mucosa present Eyes: Conjunctivae:
[2022-04-07 13:47] LABS: Basophils Absolute Auto 0.03 K/mm3 (0.00-0.10); Basophils Percent Auto 0.4 % (0.0-1.0); Eosinophils Percent Auto 1.3 % (1.0-6.0); Hematocrit 39.6 % (37.0-46.0); Hemoglobin 13.2 g/dL (12.4-15.3); Immature Granulocyte Absolute 0.05 K/mm3 (0.00-0.00); Immature Granulocyte Percent A 0.6 % (0.0-0.0); Lymphocytes Absolute Auto 0.94 K/mm3 (1.10-4.50); Lymphocytes Percent Auto 11.8 % (18.0-42.0); Mean Corpuscular HGB Conc 33.3 g/dL (32.0-36.0); Mean Corpuscular Hemoglobin 29.6 pg (27.0-31.0); Mean Corpuscular Volume 88.8 fL (78.0-102.0); Monocytes Percent Auto 7.5 % (2.0-11.0); Neutrophils Absolute Auto 6.3 K/mm3 (1.7-7.2); Neutrophils Percent Auto 78.4 % (50.0-70.0); Platelet Count Result 293 K/mm3 (150-420); Red Blood Count 4.46 M/mm3 (4.70-6.10); Red Cell Distribution Width 12.9 % (11.6-14.4)
[2022-04-07] MEDS: cefTRIAXone 1 GM, LIDOCAINE HCL 1% LOCAL INJ 2.1 ML IM (13:58)
[2022-04-07 14:03] LABS: Alanine Aminotransferase 16 U/L (16-63); Albumin Level 3.2 g/dL (3.4-5.0); Alkaline Phosphatase 86 U/L (46-116); Anion Gap 8 mmol/L (8-16); Aspartate Amino Transferase 14 U/L (15-37); Bilirubin,Total 0.7 mg/dL (0.00-1.00); Blood Urea Nitrogen 16 mg/dL (7-18); Calcium 8.2 mg/dL (8.5-10.1); Carbon Dioxide 28 mmol/L (21-32); Chloride 104 mmol/L (98-108); Estimated CRCL calculation 58 ml/min; Estimated Glomerular Filt Rate > 60; Glucose 168 mg/dL (70-99); Osmolality Calculated 295 mOsm/kg (285-295); Potassium 3.7 mmol/L (3.5-5.1); Sodium 140 mmol/L (136-145); Total Protein 7.3 g/dL (6.4-8.2)
[2022-04-07 14:06] LABS: Lactic Acid Reflex 1.5 mmol/L (0.4-2.0)
[2022-04-07 14:19] VITALS: BP 113/58; PULSE 66; RESP 18; TEMP 36.8; O2SAT 95
--- NOTE | 2022-04-14 13:45 | PC.NURSE ---
final blood culture reports x2 reviewed. no growth after 5 days. no change in plan of care.
== END 2022-04-07 14:20 | disposition home or self-care (01) ==
PROVIDERS: Emergency Provider Emergency Medicine; PCP Family Medicine
DX: M86.9 Osteomyelitis, unspecified (principal); E11.9 Type 2 diabetes mellitus without complications; I11.0 Hypertensive heart disease with heart failure; I50.30 Unspecified diastolic (congestive) heart failure; E78.2 Mixed hyperlipidemia; Z87.891 Personal history of nicotine dependence; Z79.82 Long term (current) use of aspirin; Z79.4 Long term (current) use of insulin
CPT/HCPCS: 36415; 73620; 80053; 83605; 85025; 87040; 96372; 99283; J0696

== ENCOUNTER 2022-10-11 10:51 | Outpatient (CLI) | payer MEDICARE, MEDICAID, SELFPAY ==
[2022-10-11 11:42] LABS: Basophils Percent Auto 0.5 % (0.2-1.2); Eosinophils Absolute Auto 0.2 K/mm3 (0-0.3); Hematocrit 43.9 % (42.0-52.0); Hemoglobin 14.2 g/dL (14.0-18.0); Immature Granulocyte Absolute 0.02 K/mm3 (0.00-0.031); Immature Granulocyte Percent A 0.3 % (0-0.5); Lymphocytes Absolute Auto 1.51 K/mm3 (0.9-3.2); Lymphocytes Percent Auto 25.3 % (18.3-44.2); Mean Corpuscular HGB Conc 32.3 g/dl (32-36); Mean Corpuscular Hemoglobin 29.6 pg (26-34); Mean Corpuscular Volume 91.6 fl (80-100); Mean Platelet Volume 9.8 fl (7.4-10.4); Monocytes Absolute Auto 0.5 K/mm3 (0.1-0.6); Neutrophils Absolute Auto 3.6 K/mm3 (1.3-6.7); Neutrophils Percent Auto 60.9 % (45.5-73.1); Platelet Count Result 255 k/mm3 (150-375); Red Blood Count 4.79 M/mm3 (4.6-6.20); Red Cell Distribution Width 13.2 % (11.5-14.5)
[2022-10-11 12:03] LABS: Hemoglobin A1C 8.3 % (<5.7)
[2022-10-11 12:04] LABS: Alanine Aminotransferase 38 U/L (6-50); Albumin Level 4.5 g/dL (3.5-5.1); Alkaline Phosphatase 85 U/L (38-126); Anion Gap 9 mmol/L (8-16); Aspartate Amino Transferase 35 U/L (17-59); Bilirubin,Total 0.7 mg/dL (0.2-1.3); Blood Urea Nitrogen 22 mg/dL (9-20); Calcium 8.8 mg/dL (8.4-10.2); Carbon Dioxide 23 mmol/L (22-30); Chloride 107 mmol/L (98-107); Cholesterol 152 mg/dL (0-200); Estimated Glomerular Filt Rate > 60; Glucose 153 mg/dL (65-110); HDL Direct 35 mg/dL; Potassium 4.9 mmol/L (3.4-5.0); Sodium 139 mmol/L (137-145); Triglycerides 169 mg/dL (<150)
[2022-10-11 12:09] LABS: LDL Cholesterol Direct 71 mg/dL
== END 2022-10-11 10:52 | disposition home or self-care (01) ==
LOC: ANHLAB 10:53
PROVIDERS: PCP Family Medicine; Visit Provider Physician Assistant
DX: E11.9 Type 2 diabetes mellitus without complications (principal); E78.2 Mixed hyperlipidemia; I25.810 Atherosclerosis of coronary artery bypass graft(s) without angina pectoris
CPT/HCPCS: 36415; 80053; 80061; 83036; 85025

== ENCOUNTER 2023-01-28 12:32 | Outpatient (CLI) | payer MEDICARE, SELFPAY ==
[2023-01-28 13:05] LABS: Basophils Percent Auto 0.5 % (0.2-1.2); Eosinophils Absolute Auto 0.3 K/mm3 (0-0.3); Hematocrit 40.8 % (42.0-52.0); Hemoglobin 13.4 g/dL (14.0-18.0); Immature Granulocyte Absolute 0.02 K/mm3 (0.00-0.031); Immature Granulocyte Percent A 0.3 % (0-0.5); Lymphocytes Absolute Auto 1.73 K/mm3 (0.9-3.2); Lymphocytes Percent Auto 21.7 % (18.3-44.2); Mean Corpuscular HGB Conc 32.8 g/dl (32-36); Mean Corpuscular Hemoglobin 29.6 pg (26-34); Mean Corpuscular Volume 90.3 fl (80-100); Mean Platelet Volume 9.9 fl (7.4-10.4); Monocytes Absolute Auto 0.7 K/mm3 (0.1-0.6); Monocytes Percent Auto 8.1 % (2.6-8.5); Neutrophils Absolute Auto 5.2 K/mm3 (1.3-6.7); Neutrophils Percent Auto 65.4 % (45.5-73.1); Platelet Count Result 264 k/mm3 (150-375); Red Blood Count 4.52 M/mm3 (4.6-6.20); Red Cell Distribution Width 13.5 % (11.5-14.5)
[2023-01-28 13:16] LABS: Alanine Aminotransferase 30 U/L (6-50); Albumin Level 4.3 g/dL (3.5-5.1); Alkaline Phosphatase 66 U/L (38-126); Anion Gap 12 mmol/L (8-16); Aspartate Amino Transferase 32 U/L (17-59); Bilirubin,Total 0.8 mg/dL (0.2-1.3); Blood Urea Nitrogen 22 mg/dL (9-20); Calcium 8.7 mg/dL (8.4-10.2); Carbon Dioxide 20 mmol/L (22-30); Chloride 110 mmol/L (98-107); Cholesterol 91 mg/dL (0-200); Estimated Glomerular Filt Rate > 60; Glucose 104 mg/dL (65-110); HDL Direct 39 mg/dL; Potassium 4.2 mmol/L (3.4-5.0); Sodium 142 mmol/L (137-145); Triglycerides 81 mg/dL (<150)
[2023-01-28 13:27] LABS: LDL Cholesterol Direct 43 mg/dL
[2023-01-28 13:43] LABS: Hemoglobin A1C 8.2 % (<5.7)
== END 2023-01-28 12:33 | disposition home or self-care (01) ==
PROVIDERS: PCP Family Medicine; Visit Provider Physician Assistant
DX: I25.810 Atherosclerosis of coronary artery bypass graft(s) without angina pectoris (principal); E11.9 Type 2 diabetes mellitus without complications
CPT/HCPCS: 36415; 80053; 80061; 83036; 85025

== ENCOUNTER 2023-07-03 08:23 | Outpatient (CLI) | payer MEDICARE, MEDICAID, SELFPAY ==
[2023-07-03 09:17] LABS: Basophils Percent Auto 0.6 % (0.2-1.2); Eosinophils Absolute Auto 0.4 K/mm3 (0-0.3); Hematocrit 43.3 % (42.0-52.0); Hemoglobin 14.1 g/dL (14.0-18.0); Immature Granulocyte Absolute 0.03 K/mm3 (0.00-0.031); Immature Granulocyte Percent A 0.4 % (0-0.5); Lymphocytes Absolute Auto 1.82 K/mm3 (0.9-3.2); Lymphocytes Percent Auto 25.7 % (18.3-44.2); Mean Corpuscular HGB Conc 32.6 g/dl (32-36); Mean Corpuscular Hemoglobin 29.6 pg (26-34); Mean Corpuscular Volume 90.8 fl (80-100); Mean Platelet Volume 9.9 fl (7.4-10.4); Monocytes Absolute Auto 0.7 K/mm3 (0.1-0.6); Monocytes Percent Auto 9.8 % (2.6-8.5); Neutrophils Absolute Auto 4.1 K/mm3 (1.3-6.7); Neutrophils Percent Auto 58.5 % (45.5-73.1); Platelet Count Result 238 k/mm3 (150-375); Red Blood Count 4.77 M/mm3 (4.6-6.20); Red Cell Distribution Width 13.3 % (11.5-14.5); White Blood Count 7.1 K/mm3 (4.5-10.0)
[2023-07-03 09:20] LABS: Creatinine Urine 66.6 mg/dL
[2023-07-03 09:27] LABS: Hemoglobin A1C 7.2 % (<5.7)
[2023-07-03 09:31] LABS: Alanine Aminotransferase 26 U/L (6-50); Albumin Level 4.3 g/dL (3.5-5.1); Alkaline Phosphatase 80 U/L (38-126); Anion Gap 8 mmol/L (4-12); Aspartate Amino Transferase 27 U/L (17-59); Bilirubin,Total 0.6 mg/dL (0.2-1.3); Blood Urea Nitrogen 20 mg/dL (9-20); Calcium 9.1 mg/dL (8.4-10.2); Carbon Dioxide 24 mmol/L (22-30); Chloride 108 mmol/L (98-107); Cholesterol 108 mg/dL (0-200); Estimated Glomerular Filt Rate > 60; Glucose 136 mg/dL (65-110); HDL Direct 40 mg/dL; Potassium 4.1 mmol/L (3.4-5.0); Sodium 140 mmol/L (137-145); Triglycerides 155 mg/dL (<150); Uric Acid 4.8 mg/dL (3.5-8.5)
[2023-07-03 09:41] LABS: LDL Cholesterol Direct 53 mg/dL
[2023-07-03 10:01] LABS: Prostate Specific Antigen 0.8 ng/mL (< OR = 4.0)
[2023-07-03 10:39] LABS: MALB Creatinine Ratio < 9.0 mg/g (0-30); Microalbumin Urine Random < 6.0 mg/L (0-16.7)
== END 2023-07-03 08:24 | disposition home or self-care (01) ==
PROVIDERS: Physician Assistant; PCP Family Medicine; Visit Provider Family Medicine
DX: E78.2 Mixed hyperlipidemia (principal); I10 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) hypertension; E11.618 Type 2 diabetes mellitus with other diabetic arthropathy; E79.0 Hyperuricemia without signs of inflammatory arthritis and tophaceous disease; Z12.5 Encounter for screening for malignant neoplasm of prostate
CPT/HCPCS: 36415; 80053; 80061; 82043; 83036; 84153; 84550; 85025; G0103

== ENCOUNTER 2023-07-31 13:28 | Outpatient (CLI) | payer MEDICARE, MEDICAID, SELFPAY ==
--- NOTE | ~2023-07-31 | US_ITS ---
EXAMINATION: US carotid duplex BI DATE: 07/31/2023 15:02 INDICATION: Carotid atherosclerosis post right carotid stenting TECHNIQUE: Grayscale, color Doppler, and pulsed Doppler images of the cervical carotid arteries were obtained. The degree of vessel stenosis is placed in one of the following categories: normal, <50%, 5 0-69%, >=70% but less than near-occlusion, near-occlusion, or total occlusion. Note that percent sten osis relative to normal distal artery lumen diameter is indirectly measured from velocity measurement s as described by Gonzales, et al. Radiology 2003; 229:340-346. COMPARISON: 06/02/2019 FINDINGS: RIGHT: The right common carotid artery (CCA) peak systolic velocity (PSV) is 117 cm/s. A stent is seen in th e right carotid bulb. The right internal carotid artery (ICA) PSV is 181 cm/s. The right ICA end-salazar tolic velocity (EDV) is 32 cm/s. The right ICA/CCA PSV ratio is 1.5. Grayscale and color Doppler imag es yield an estimate of 50-69% diameter reduction from plaque in the ICA. The external carotid artery (ECA) PSV is 216 cm/s. There is antegrade flow in the right vertebral artery. LEFT: The left CCA PSV is 170 cm/s. The left ICA PSV is 148 cm/s. The left ICA EDV is 19 cm/s. The left ICA /CCA PSV ratio is 0.9. Grayscale and color Doppler images including secondary Doppler criteria yield an estimate of <50% diameter reduction from plaque in the ICA. The ECA PSV is 157 cm/s. There is ante grade flow in the left vertebral artery. IMPRESSION: 1. 50-69% stenosis in the stented right internal carotid artery. 2. <50% stenosis in the left internal carotid artery. Reviewed, dictated and finalized at location A.
== END 2023-07-31 13:29 | disposition home or self-care (01) ==
PROVIDERS: PCP Family Medicine; Visit Provider Internal Medicine Cardiovascular Disease
DX: R09.89 Other specified symptoms and signs involving the circulatory and respiratory systems (principal); I65.23 Occlusion and stenosis of bilateral carotid arteries
CPT/HCPCS: 93880

== ENCOUNTER 2023-10-01 10:29 | Outpatient (CLI) | payer MEDICARE, MEDICAID, SELFPAY ==
--- NOTE | ~2023-10-01 | XR_ITS ---
XR finger 2nd RT min 2V Ordering provider: Suzanne Dove PA-C History: . R 2ND DIGIT r/o osteomyelitis, RECENT CAT BITE, CELLULITIS . Comparison: None. FINDINGS: BONES: No acute fracture or dislocation. JOINT SPACES: Narrowing of the proximal and distal interphalangeal joints. Subarticular cystic change s are seen. SOFT TISSUES: Soft tissue swelling is seen. IMPRESSION: No acute osseous abnormality. Osteoarthritic changes. Soft tissue swelling which may indicate cellulitis. Reviewed, dictated and finalized at location A.
== END 2023-10-01 10:30 | disposition home or self-care (01) ==
PROVIDERS: PCP Family Medicine; Visit Provider Physician Assistant
DX: L03.019 Cellulitis of unspecified finger (principal); S60.470A Other superficial bite of right index finger, initial encounter; X58.XXXA Exposure to other specified factors, initial encounter; M19.041 Primary osteoarthritis, right hand; M79.89 Other specified soft tissue disorders
CPT/HCPCS: 73140

== ENCOUNTER 2023-12-31 10:46 | Outpatient (CLI) | payer MEDICARE, SELFPAY ==
[2023-12-31 11:43] LABS: Basophils Absolute Auto 0.1 K/mm3 (0.0-0.1); Basophils Percent Auto 0.6 % (0.2-1.2); Eosinophils Absolute Auto 0.4 K/mm3 (0-0.3); Eosinophils Percent Auto 4.3 % (0-4.4); Hematocrit 41.4 % (42.0-52.0); Hemoglobin 13.2 g/dL (14.0-18.0); Immature Granulocyte Absolute 0.04 K/mm3 (0.00-0.031); Immature Granulocyte Percent A 0.5 % (0-0.5); Lymphocytes Absolute Auto 1.48 K/mm3 (0.9-3.2); Lymphocytes Percent Auto 18.3 % (18.3-44.2); Mean Corpuscular HGB Conc 31.9 g/dl (32-36); Mean Corpuscular Hemoglobin 29.3 pg (26-34); Mean Corpuscular Volume 91.8 fl (80-100); Mean Platelet Volume 9.6 fl (7.4-10.4); Monocytes Absolute Auto 0.6 K/mm3 (0.1-0.6); Monocytes Percent Auto 7.3 % (2.6-8.5); Neutrophils Absolute Auto 5.6 K/mm3 (1.3-6.7); Platelet Count Result 278 k/mm3 (150-375); Red Blood Count 4.51 M/mm3 (4.6-6.20); Red Cell Distribution Width 13.2 % (11.5-14.5); White Blood Count 8.1 K/mm3 (4.5-10.0)
[2023-12-31 11:55] LABS: Alanine Aminotransferase 26 U/L (6-50); Albumin Level 4.4 g/dL (3.5-5.1); Alkaline Phosphatase 105 U/L (38-126); Anion Gap 8 mmol/L (4-12); Aspartate Amino Transferase 31 U/L (17-59); Bilirubin,Total 0.6 mg/dL (0.2-1.3); Blood Urea Nitrogen 16 mg/dL (9-20); Carbon Dioxide 28 mmol/L (22-30); Chloride 107 mmol/L (98-107); Cholesterol 122 mg/dL (0-200); Estimated Glomerular Filt Rate > 60; Glucose 176 mg/dL (65-110); HDL Direct 35 mg/dL; Potassium 4.5 mmol/L (3.4-5.0); Sodium 143 mmol/L (137-145); Triglycerides 172 mg/dL (<150)
[2023-12-31 12:06] LABS: LDL Cholesterol Direct 42 mg/dL
[2023-12-31 12:12] LABS: Hemoglobin A1C 10.4 % (<5.7)
== END 2023-12-31 10:47 | disposition home or self-care (01) ==
PROVIDERS: PCP Family Medicine; Visit Provider Physician Assistant
DX: I48.0 Paroxysmal atrial fibrillation (principal); I25.810 Atherosclerosis of coronary artery bypass graft(s) without angina pectoris; E78.2 Mixed hyperlipidemia; E11.9 Type 2 diabetes mellitus without complications; Z79.4 Long term (current) use of insulin
CPT/HCPCS: 36415; 80053; 80061; 83036; 85025

== ENCOUNTER 2024-04-20 13:17 | Outpatient (CLI) | payer MEDICARE, SELFPAY ==
--- OUTSIDE RECORDS SUMMARY | 2024-04-20 14:13 | XMS_ITS | CONTINUITY OF CARE DOCUMENT ---
Author Name shannan chairichie Address Unknown Organization [facility] Address [address] [place] [address] Phone [phone] Care Team Providers Care Security Control Room Officer Name Role Phone Aletha AGUILAR, Tomy Unavailable [phone] GUNJAN AGUILAR, FAYE Unavailable FAYE HOLLINS MD Unavailable PROBLEMS Condition Status Date Provider Notes Cardiology examination active Laisha Ventim iglia ORGANIC CHEMIST Cerebrovascular Disease active Laisha Venti miglia ORGANIC CHEMIST (History of) Coronary Heart Disease active Laisha Ventim iglia ORGANIC CHEMIST Diabetes, Type 2 active Laisha Ventimiglia ORGANIC CHEMIST Hyperlipidemia active Laisha Ventimiglia FN P Hypertension active Laisha Ventimiglia ORGANIC CHEMIST Peripheral artery disease active Laisha Santino timiglia ORGANIC CHEMIST Carotid artery stenosis active Laisha Venti miglia ORGANIC CHEMIST Leg pain, bilateral active Tomy Pompa MD Carotid bruit, bilateral active Tomy mckenna MD ENCOUNTERS Date Type Provider Location Encounter Diag nosis - In-person encounter Office Visit Tomy Pompa MD [facility] - In-person encounter Office Visit Tomy Pompa MD [facility] Leg pain, bilateralCarotid bruit, bilateral - In-person encounter Office Visit Tomy Pompa MD [facility] Cardiology examinationCerebrovascular DiseaseCoronary Heart DiseaseDiabetes, Type 2HyperlipidemiaHypertensionPerip heral artery diseaseCarotid artery stenosis VITAL SIGNS Date Observation Value Provider Body Mass Index (Ratio) 29.97 kg/m2 Alayna Pompa MD blood pressure, cuff size regular Ta bitha Montanez blood pressure, diastolic 64 mm[Hg] Ta bitha Montanez blood pressure, systolic 136 mm[Hg] Tab sandraa Montanez oxygen saturation, oximetry 96 % Celeste Montanez respiratory rate E&M 12 /min Celeste Montanez pulse rate 76 /min Celeste Montanez weight E&M 203 [lb_av] Celeste Montanez height E&M 69 [in_i] Celeste Montanez Body Mass Index (Ratio) 30.42 kg/m2 Alayna Pompa MD blood pressure, diastolic 64 mm[Hg] Kiya nkLog blood pressure, systolic 146 mm[Hg] Olga kLog blood pressure, cuff size regular Kirit briggs Montanez blood pressure, diastolic 64 mm[Hg] Ta idalmisha Montanez blood pressure, systolic 146 mm[Hg] Tab sandraa Montanez oxygen saturation, oximetry 95 % Celeste Montanez pulse rate 77 /min Celeste Montanez weight E&M 206 [lb_av] Celeste Montanez respiratory rate E&M 12 /min Celeste Montanez height E&M 69 [in_i] Celeste Montanez Body Mass Index (Ratio) 28.94 kg/m2 Alayna Pompa MD blood pressure, diastolic 71 mm[Hg] St mago Salomon blood pressure, systolic 132 mm[Hg] Brenna Salomon oxygen saturation, oximetry 97 % Marichuy Salomon pulse rate 76 /min Marichuy Salomon respiratory rate E&M 16 /min Marichuy bartholomews weight E&M 196 [lb_av] Marichuy Salomon height E&M 69 [in_i] Marichuy Salomon ALLERGIES No Known Drug Allergies HISTORY OF MEDICATION USE Medication Status Instructions Dates Provider Indications Com ments aspirin 81 mg tablet,delayed release (DR/EC) active TAKE 1 TABLET BY MOUTH EVERY DAY Elise Aranda NP fluoxetine 10 mg capsule active daily Elise Aranda NP quetiapine 25 mg tablet active 1/2 tablet at night as needed Elise Aranda NP aspirin 81 mg tablet,delayed release (DR/EC) active Take 1 tablet by mouth once a day Laisha MCKINNEY carvedilol 12.5 mg tablet active Take 1 tablet by mouth twice a day Elise Aranda NP Lantus U-100 Insulin 100 unit/mL solution active 10 unit subcutaneously twice a day Laisha BALLP Humalog Feroz KwikPen U-100 100 unit/mL insulin pen, half-unit active sliding scale with meals Elise Aranda NP TRUEplus Pen Needle 32 gauge x 5/32 needle active Marichuy Salomon TechLITE Pen Needle 32 gauge x 5/32 needle active USE FOUR TIMES DAILY WITH INSULIN Mairchuy Salomon fenofibrate 160 mg tablet active Take 1 tablet by mouth once daily Elise Aranda NP Jardiance 10 mg tablet active TAKE 1 TABLET BY MOUTH DAILY. Elise Aranda NP ceftriaxone 2 gram recon soln completed - Elise Aranda NP metronidazole 250 mg tablet completed - Elise Aranda NP hydrocodone-acet aminophen 10-325 mg tablet active as needed Elise Aranda NP mupirocin 2% ointment completed - Elise Aranda NP vancomycin 1,000 mg recon soln completed - Elise Aranda NP clopidogrel 75 mg tablet active TAKE 1 TABLET BY MOUTH DAILY Elise Aranda NP atorvastatin 40 mg tablet active 1 tablet by mouth every night TAKE 1 TABLET BY MOUTH EVERY EVENING. Elise Aranda NP losartan 50 mg tablet active TAKE 1 TABLET BY MOUTH ONCE DAILY Elise Aranda NP SOCIAL HISTORY Date Observation Value Provider drug use no Tomy Pompa MD alcohol use no Tomy Pompa MD passive cigarette smoke exposure no Tomy Pompa MD chewing tobacco use Never Tomy fuller MD smoking history, total pack/day 3 Tomy Pompa MD cigarette use yes Tomy [place] smoking status Former smoker Tomy Pompa MD drug use no Elise jensen NP alcohol use no Elise jensen NP passive cigarette smoke exposure no Elise Aranda NP chewing tobacco use Never Elise Aranda NP smoking history, total pack/day 3 Elise Aranda NP cigarette use yes Elise garcia NP smoking status Former smoker Elise dietrich NP Exercise counseling Yes Elise Aranda NP drug use no Laisha Ventimig [place] ORGANIC CHEMIST alcohol use no Laisha Ventimig [place] ORGANIC CHEMIST smoking history, total pack/day 3 Marichuy Salomon passive cigarette smoke exposure no Marichyu Salomon chewing tobacco use Never Marichuy Raul rosenthal cigarette use yes Marichuy Salomon smoking status Former smoker Marichuy Salomon FUNCTIONAL STATUS Date Observation Value Provider HRA, CV Assess/Plan, Angina (inactive) Management Plan continue current therapy Tomy Pompa MD HRA, CV Assess/Plan, Angina (inactive) Management Plan continue current therapy Elise Aranda NP HRA, CV Assess/Plan, Angina (inactive) Management Plan continue current therapy Laisha Ventimiglia [facility] INSURANCE PROVIDERS Payer name Policy type / Coverage type [place] red libertarian ID [facility] Other [id number] (PPO C-SNP) Commercial insurance company [id number] [employer] Medicaid 4 [id number] ADVANCE DIRECTIVES Name Date DISCUSSED - NO DECISION MADE TREATMENT PLAN Date Name Performer [id number],C, H is updated medication list for this problem includes: Aspirin 81 Mg Tablet,delayed Release (dr/ec) (Aspirin) ..... Take 1 tablet by mouth once a day Lantus U-100 Insulin 100 Unit/ml Solution (Insulin glargine) ..... 10 unit subcutaneously twice a day Humalog Feroz Kwikpen U-100 100 Unit/ml Insulin Pen, Half-unit (Insulin lispro) Jardiance 10 Mg Tablet (Empagliflozin) Losartan 50 Mg Tablet (Losartan) [facility] [id number],C,with stent to rt carotid [facility] [id number],C,c ontrolled H is updated medication list for this problem includes: Aspirin 81 Mg Tablet,delayed Release (dr/ec) (Aspirin) ..... Take 1 tablet by mouth once a day Carvedilol 12.5 Mg Tablet (Carvedilol) Losartan 50 Mg Tablet (Losartan) [facility] [id number],C,P atient has non-healing ulcerations and discoloration of 4th and 2nd digit of left foot and 4th digit of rt foot. Remains on IV abx for osteomyelitis. He reports abnormal YONG at [facility] will repeat to determine need for angiogram. His distal pulses are not palpable at DP and feet cool to touch. Will await YONG H is updated medication list for this problem includes: Aspirin 81 Mg Tablet,delayed Release (dr/ec) (Aspirin) ..... Take 1 tablet by mouth once a day Clopidogrel 75 Mg Tablet (Clopidogrel) [facility] [id number],C,w ith CABG x 4. Follows with Dr. Castano at [place]. H is updated medication list for this problem includes: Aspirin 81 Mg Tablet,delayed Release (dr/ec) (Aspirin) ..... Take 1 tablet by mouth once a day Carvedilol 12.5 Mg Tablet (Carvedilol) Clopidogrel 75 Mg Tablet (Clopidogrel) Laisha Ponce [facility] Cardiology: H is updated medication list for this problem includes: Aspirin 81 Mg Tablet,delayed Release (dr/ec) (Aspirin) ..... Take 1 tablet by mouth every day Losartan 50 Mg Tablet (Losartan) ..... Take 1 tablet by mouth once daily Carvedilol 12.5 Mg Tablet (Carvedilol) ..... Take 1 tablet by mouth twice a day Aspirin 81 Mg Tablet,delayed Release (dr/ec) (Aspirin) ..... Take 1 tablet by mouth once a day BP today: 136/64 P rior BP: 146/64 (10/24/2023) Tomy Pompa MD Cardiology: H is updated medication list for this problem includes: Atorvastatin 40 Mg Tablet (Atorvastatin) ..... 1 tablet by mouth every night take 1 tablet by mouth every evening. Fenofibrate 160 Mg Tablet (Fenofibrate) ..... Take 1 tablet by mouth once daily Tomy Pompa MD Cardiology: w ith stent to rt carotid Tomy Pompa MD Cardiology:Sensilase showed normal perfusion pressures bilaterally, will continue to treat him medically T his visit has been a part of the consistent, comprehensive, and ongoing management of the chronic medical condition(s) listed above for the patient. Tomy Pompa MD Cardiology:with CABG x 4. Follows with Dr. Castano at [place]. Tomy Pompa MD Cardiology:was last seen in office 01/2022 at that time was scheduled to have sensilase of BLE, but it was cancelled d/t staffing issues. pt never had it rescheduled. since that time he had amputation of L 2nd toe. over the last couple of months he has multiple falls d/t leg pain/weakness. w ill check Sensilase of BLE continue asa, plavix, statin, fenofibrate 2022 YONG: Mild atherosclerosis with normal arterial flow noted in the lower extremities bilaterally above the level of the knee. The tibial arteries are calcified bilaterally. Normal triphasic flow in the right tibial arteries. There is mild disease of the left tibial arteries with biphasic flow. Elise Aranda OBJECT ORIENTED PROGRAMMER Cardiology Elise Aranda OBJECT ORIENTED PROGRAMMER Cardiology: H is updated medication list for this problem includes: Aspirin 81 Mg Tablet,delayed Release (dr/ec) (Aspirin) ..... Take 1 tablet by mouth once a day Lantus U-100 Insulin 100 Unit/ml Solution (Insulin glargine) ..... 10 unit subcutaneously twice a day Humalog Feroz Gustavo U-100 100 Unit/ml Insulin Pen, Half-unit (Insulin lispro) Jardiance 10 Mg Tablet (Empagliflozin) Losartan 50 Mg Tablet (Losartan) [facility] Cardiology:with stent to rt sung tid [facility] Cardiology:controlle d H is updated medication list for this problem includes: Aspirin 81 Mg Tablet,delayed Release (dr/ec) (Aspirin) ..... Take 1 tablet by mouth once a day Carvedilol 12.5 Mg Tablet (Carvedilol) Losartan 50 Mg Tablet (Losartan) [facility] Cardiology:Patient h as non-healing ulcerations and discoloration of 4th and 2nd digit of left foot and 4th digit of rt foot. Remains on IV abx for osteomyelitis. He reports abnormal YONG at [facility] will repeat to determine need for angiogram. His distal pulses are not palpable at DP and feet cool to touch. Will await YONG H is updated medication list for this problem includes: Aspirin 81 Mg Tablet,delayed Release (dr/ec) (Aspirin) ..... Take 1 tablet by mouth once a day Clopidogrel 75 Mg Tablet (Clopidogrel) [facility] Cardiology:with CABG x 4. Follows with Dr. Castano at [place]. H is updated medication list for this problem includes: Aspirin 81 Mg Tablet,delayed Release (dr/ec) (Aspirin) ..... Take 1 tablet by mouth once a day Carvedilol 12.5 Mg Tablet (Carvedilol) Clopidogrel 75 Mg Tablet (Clopidogrel) Laisha Tatykennethmark ORGANIC CHEMIST Date Name Arterial - SENSILASE Arterial Duplex Bi-L ower EX HISTORY OF PROCEDURES Procedure Date Procedure Name Provider Procedure Notes S tatus Complex e/m visit add on Tomy Pompa MD completed EKG Tomy Pompa MD completed EKG Tomy Pompa MD completed
--- OUTSIDE RECORDS SUMMARY | 2024-04-20 14:13 | XMS_ITS | Data Portability ---
Author Organization [facility] [employer] | [employer], Main Office Address [address] [place] [address] Assessment No assessment recorded. Plan of Treatment Reminders Order Date Submit Date Provider Last Modified By Organization Details Last Modified Time Details Appointments None record ed. Lab None record ed. Referral None record ed. Procedures None record ed. Surgeries None record ed. Imaging None record ed. Medication Orders None record ed. Patient TargetsNo targets recorded. Patient InstructionsNo instructions recorded. Reason for Referral None Reported. Results Created Date Observation Date Name Description Value Unit Range Abnormal Flag Note LastModifiedBy Organization Detail LastModifiedTime 04/23/1904/20/2022 XR, foot, 3 or more view No observ ation record ed. [id number] Not Available 05/16/2022 13:31:52 Result Notes None recorded. Problems Name Problem SNOMED Code Status Onset Date Resolution Date Notes Provider Name and Address Organization Details Recorded Time Edema of foot 639392892 Active Not Available [facility] 3 13:30:11 Cellulitis of toe of left foot 6013822066862 9105 Active 2022 Not Available [facility] 3 13:30:11 Cellulitis of right foot 5775093512031 9105 Active Not Available [facility] 3 13:30:11 Postoperat fer care Active 2022 Not Available [facility] 3 13:30:12 Acute osteomyeli tis of phalanx of toe 334086615 Active 2022 Not Available [facility] 3 13:30:12 Ulcer of toe 919118931 Active 2022 Not Available [facility] 3 13:30:12 Knee pain Active Not Available [facility] 3 13:30:12 Pain in right foot 2732806622782 07 Active Not Available [facility] 3 13:30:12 Charcot's arthropath y 468851704 Active Not Available [facility] 3 13:30:12 Type 2 diabetes mellitus 71758074 Active Not Available [facility] 3 13:30:12 Osteomyeli tis 62608789 Active Not Available [facility] 3 13:30:12 Problem Notes None recorded. Procedures Surgical History None recorded. Imaging Results Imaging Date Name Status LastModified by Organiz ation Details LastModified Time 04/20/2022 XR, foot, 3 or more view completed [id number] Information not available 05/16/2022 13:31:52 Procedure Notes None recorded. Medical Equipment None Reported. Medications Name Sig Start Date Stop Date Status Note LastModified by Organization Details LastModified Time losartan 50 mg tablet TAKE 1 TABLET BY MOUTH DAILY active Not Available Not Available No t Available furosemid e 40 mg tablet 04/18 completed Not Available Not Available Not Available atorvasta tin 40 mg tablet TAKE 1 TABLET BY MOUTH EVERY EVENING active Not Available Not Available No t Available prednison e 10 mg tablet active Not Available Not Available Not Available carvedilo l 12.5 mg tablet TAKE 1 TABLET BY MOUTH EVERY 12 HOURS active Not Available Not Available No t Available clindamyc in HCl 300 mg capsule TAKE 1 CAPSULE BY MOUTH EVERY 6 HOURS FOR 10 DAYS 04/18 completed Not Available Not Available Not Available amiodaron e 200 mg tablet 04/18 completed Not Available Not Available Not Available metronida zole 250 mg tablet TAKE 2 TABLETS BY MOUTH EVERY 8 HOURS 04/18 completed Not Available Not Available Not Available Lantus U-100 Insulin 100 unit/mL subcutane ous solution Inject by subcutan eous route. 2015 active Not Available Not Available Not Avai lable clopidogr el 75 mg tablet TAKE 1 TABLET BY MOUTH DAILY active Not Available Not Available No t Available hydrocodo ne 10 mg-acetam inophen 325 mg tablet TAKE 1 TABLET BY MOUTH EVERY 6 HOURS NEEDED FOR PAIN active Not Available Not Available No t Available aspirin 81 mg tablet,de layed release Take 1 tablet every day by oral route. 2015 active Not Available Not Available Not Avai lable vancomyci n 1,000 mg intraveno us injection 04/18 completed Not Available Not Available Not Available fenofibra te micronize d 134 mg capsule TAKE 1 CAPSULE BY MOUTH EVERY DAY WITH FOOD 04/18 completed Not Available Not Available Not Available methocarb baylee 750 mg tablet Take 1 tablet every 4 hours by oral route. 04/18 completed Not Available Not Available Not Available meclizine 25 mg tablet TAKE 1 TABLET BY MOUTH TWICE DAILY NEEDED FOR DIZZINES S 04/18 completed Not Available Not Available Not Available nystatin 100,000 unit/gram topical cream APPLY TOPICALL Y TO THE AFFECTED AREA TWICE DAILY active Not Available Not Available No t Available lisinopri l 10 mg tablet TAKE 1 TABLET BY MOUTH EVERY DAY 04/18 completed Not Available Not Available Not Available docusate sodium 100 mg capsule TAKE 1 CAPSULE BY MOUTH TWICE DAILY. 04/18 completed Not Available Not Available Not Available lisinopri l 5 mg tablet Take 1 tablet every day by oral route. 04/18 completed Not Available Not Available Not Available mupirocin 2 % topical ointment APPLY TOPICALL Y TO THE AFFECTED AREA TWICE DAILY active Not Available Not Available No t Available Novolog U-100 Insulin aspart 100 unit/mL subcutane ous solution Inject by subcutan eous route. 04/18 completed sliding scale Not Available Not Available Not Available amoxicill in 875 mg-potass ium clavulana te 125 mg tablet TAKE 1 TABLET BY MOUTH TWICE DAILY active Not Available Not Available No t Available ceftriaxo ne 2 gram solution for injection 04/18 completed Not Available Not Available Not Available Novolog FlexPen U-100 Insulin aspart 100 unit/mL (3 mL) subcutane ous sliding scale 04/18 completed Not Available Not Available Not Available fenofibra te 160 mg tablet TAKE 1 TABLET BY MOUTH DAILY active Not Available Not Available No t Available Lantus Solostar U-100 Insulin 100 unit/mL (3 mL) subcutane ous pen INJECT 8 UNITS UNDER THE SKIN EVERY MORNING AND 10 UNITS EVERY NIGHT AT BEDTIME active Not Available Not Available No t Available Humalog KwikPen (U-100) Insulin 100 unit/mL subcutane ous INJECTSU BQ PRIOR MEAL WITH SLIDING SCALE 10U 151-200, 12U 201-250, 14U 251-300, 16U 301-350, 18U 351-400 active Not Available Not Available No t Available melatonin 5 mg capsule Take by oral route. 04/18 completed Not Available Not Available Not Available Eliquis 5 mg tablet 04/18 completed Not Available Not Available Not Available Jardiance 10 mg tablet TAKE 1 TABLET BY MOUTH DAILY active Not Available Not Available No t Available BD Mariela 2nd Gen Pen Needle 32 gauge x 5/32 USE BEFORE MEALS AND AT BEDTIME active Not Available Not Available No t Available Vitals Date Recorded Oxygen saturation Oxygen saturation in Arterial blood by Pulse oximetry Oxygen saturation Oxygen saturation in Arterial blood by Pulse oximetry Oxygen saturation Oxygen saturation in Arterial blood by Pulse oximetry Heart rate Heart rate Heart rate Respiratory rate Respiratory rate Body temperature Body temperature Body temperature Systolic blood pressure Diastolic blood pressure Systolic blood pressure Diastolic blood pressure Systolic blood pressure Diastolic blood pressure Provider Name and Address Organization Details Last Updated DateTime 3 98 % 98 % 98 % 98 % 97 % 97 % 82 /min 88 /min 76 /min 20 /min 20 /min 98.2 [degF] 98.1 [degF] 97.8 [degF] 165 mm[Hg] 103 mm[Hg] 141 mm[Hg] 64 mm[Hg] 124 mm[Hg] 61 mm[Hg] Not Available [facility] 3 13:29:41 Date Recorded Heart rate Respiratory rate Oxygen saturation Oxygen saturation in Arterial blood by Pulse oximetry Systolic blood pressure Diastolic blood pressure Provider Name and Address Organization Details Last Updated DateTime 3 74 /min 18 /min 98 % 98 % 161 mm[Hg] 92 mm[Hg] Karli RAMÍREZ PA [employer] [facility] 3 15:51:43 Social History Question Answer Notes LastModified by Organization Details LastModified Time Tobacco Smoking Status Former Smoker Not Available [facility] 05/16/2022 13:29:33 Do You Have An Advance Directive? No [id number] Information not available 05/16/2022 Are You Blind Or Do You Have Difficulty Seeing? Yes Cataracts [id number] Information not available 05/16/2022 What Is Your Code Status? Full Code [id number] Information not available 05/16/2022 In The 14 Days Before Symptom Onset, Have You Had Close Contact With A Laboratory-conf irmed COVID-19 While That Case Was Ill? No [id number] Information not available 05/16/2022 In The 14 Days Before Symptom Onset, Have You Had Close Contact With A Person Who Is Under Investigation For COVID-19 While That Person Was Ill? No [id number].0301 [id number] Information not available 05/16/2022 Are You Deaf Or Do You Have Serious Difficulty Hearing? Yes [place] MIGRATION.0301 [id number] Information not available 05/16/2022 What Type Of Diet Are You Following? DIABETIC MIGRATION.0301 [id number] Information not available 05/16/2022 When Did You Quit Smoking? 16+yearssincelastc igarette MIGRATION.0301 [id number] Information not available 05/16/2022 [facility] MIGR[facility].[id number] [id number] Information not available 05/16/2022 Are You Following A Low Salt Diet? No MIGRATION.0301 [id number] Information not available 05/16/2022 Do You Have A Medical Power Of [place]? No MIGRATION.0301 [id number] Information not available 05/16/2022 Have You Recently Traveled Abroad? No MIGRATION.0301 [id number] Information not available 05/16/2022 Do You Have Any Dietary Restrictions? Yes MIGRATION.0301 [id number] Information not available 05/16/2022 Do You Or Have You Ever Used Any Other Forms Of Tobacco Or Nicotine? No MIGRATION.0301 [id number] Information not available 05/16/2022 Sex: Unknown Functional Status Question Answer Note LastModified by Organizat ion Details LastModified Time Do you have difficulty walking or climbing stairs? No [id number].[id number] Information not available 05/16/2022 Do you have transportation difficulties? No [id number].[id number] Information not available 05/16/2022 Are you able to walk? YESWOREST MIGRATION.[id number] Information not available 05/16/2022 Do you have difficulty doing errands alone? Yes [id number] Information not available 05/16/2022 Are you able to care for yourself? Yes help from MIGRATION.[id number] Information not available 05/16/2022 Do you have difficulty dressing or bathing? Yes MIGRATION.[id number] Information not available 05/16/2022 What is your exercise level? None [id number].[id number] Information not available 05/16/2022 Mental Status Question Answer Note LastModified by Organizat ion Details LastModified Time Do you have difficulty concentrating, remembering or making decisions? No [id number] Information not available 05/16/2022 Family History Nothing Reported. Medical History Condition Response HIGH CHOLESTEROL / HYPERLIPIDEMIA Y BACK / NECK PROBLEMS Y HAVE YOU BEEN HOSPITALIZED OR SEEN IN [facility] ER IN THE PAST YEAR ? Y STROKE/TIA Y Do you have Advance directive? N ARTHRITIS Y USE OF BLOOD THINNERS Y DIABETES, TYPE Y Do you have a living will? N BLOOD CLOTS Y HEADACHES/MIGRAINES Y HYPERTENSION Y FOOT PROBLEM Y Past Encounters Encounter ID Performer Location Encounter Start Date Encounter Closed Date Diagnosis/Indication Diagnosis SNOMED-CT Code Diagnosis ICD10 Code Diagnosis Note [id number] [facility] [address] [place] [address] 04/18/2022 00:00:00 04/18/2022 14:42:29 [id number] [facility] [address] [place] [address] 04/25/2022 00:00:00 04/25/2022 11:55:07 [id number] [facility] [address] [place] [address] 05/02/2022 00:00:00 05/02/2022 16:23:34 [id number] Edmundo Lira DPM [facility] [place] [address] [facility] [address] [facility] [address] [place] [address] 06/04/2022 15:43:36 06/05/2022 13:55:26 Postoperative care [id number] Z48.89 2nd left toe amputation healedCont inued normal shoe gearCheck feet daily for wounds infectionF ollow-up in 3 months for diabetic foot evaluation Health Concerns Section Related Observation LastModified by Organization Detai ls LastModified Time None Recorded Concern Status LastModified by Organization Details LastModified Time None Recorded Advance Directives Directive N: Payers Encounter Date Sequence Insurance Name Policy Number Policy Prince Covered Member ID Prince Member ID Guarantor Name 06/04/2022 1 [facility] (MEDICARE REPLACEMENT/A DVANTAGE - PPO) [id number] Ernesto Garvey [id number] Ernesto Garvey 06/04/2022 2 [place]: [facility] Ernesto Garvey [id number] Ernesto Garvey Notes Date Note Type Note Provider Name and Address Organization Details Recorded Time 06/04/2022 text/html . Patient is a 67-year-old male who returns the office for follow-up on amputation of the 2nd toe. Patient is completely healed denies any new problems. Patient denies any other pedal complaints. Edumndo Lira DPM [address] [facility] [address], [place], [address], [facility] [employer] 06/04/2022 16:10:46"
--- OUTSIDE RECORDS SUMMARY | 2024-04-20 14:13 | XMS_ITS | Clinical Summary ---
Author Organization [facility] [address] Address [address] [place] [address] Care Team Providers Care Sorting Machine Operator Name Role Phone Bonnie Marie MD Primary Care Provider Matthew Castano Shirley DO Unavailable [phone] Allergies No known active allergies Medications fenofibrate (TRIGLIDE) 160 mg tablet Take 1 tablet (160 mg total) by mouth daily Active insulin glargine (LANTUS,BASAGLA R) 100 unit/mL (3 mL) insulin pen Inject under the skin 2 (two) times a day 8 units AM 10 units PM Active carvediloL (COREG) 12.5 mg tablet Take 1 tablet (12.5 mg total) by mouth every 12 (twelve) hours 1 Active losartan (COZAAR) 50 mg tablet Take 1 tablet (50 mg total) by mouth daily 1 Active clopidogreL (PLAVIX) 75 mg tablet Take 1 tablet (75 mg total) by mouth daily Active insulin lispro (HumaLOG, ADMELOG) 100 unit/mL pen for injection Inject 5 Units under the skin 3 (three) times a day Active atorvastatin (LIPITOR) 40 mg tablet Take 1 tablet (40 mg total) by mouth nightly 2 Active aspirin 81 mg enteric coated tablet Take 1 tablet (81 mg total) by mouth daily Active acetaminophen-a spirin-caffeine (EXCEDRIN MIGRAINE) 250-250-65 mg per tablet Take 1 tablet by mouth every 6 (six) hours as needed for headaches Active Jardiance 10 mg tablet Take 1 tablet (10 mg total) by mouth daily 3 Active HYDROcodone-nakul taminophen (NORCO) 10-325 mg per tabletIndicatio ns:Pain Take 1 tablet by mouth every 6 (six) hours as needed for pain Active Active Problems Problem Noted Date Diagnosed Date Unilateral carotid artery stenosis 08/14/2022 Cerebral vascular disease 08/14/2022 Carotid stenosis, bilateral 08/14/2022 Charcot's arthropathy 07/23/2022 07/23/2022 Edema of foot 07/23/2022 07/23/2022 Carotid occlusion, right 07/10/2022 Acute osteomyelitis of phalanx of foot ([facility]) 04/18/2022 07/23/2022 Cellulitis of toe of left foot 04/18/2022 0 07/23/2022 Ulcer of toe ([facility]) 04/18/2022 Peripheral artery disease 02/12/20222022 Ankylosing hyperostosis (forestier), site unspec ified 01/19/2022 Chronic obstructive pulmonary disease, unspecifi ed 01/19/2022 Chronic pain syndrome 01/19/2022 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) hypertension 01/19/2022 Mixed hyperlipidemia 01/19/2022 Non-pressure chronic ulcer o f other part of left foot limited to breakdown of skin 01/19/2022 Osteomyelitis, unspecified 01/19/2022 Paroxysmal atrial fibrillation ([facility]) 022 Peripheral vascular angiopla sty status with implants and grafts 01/19/2022 Polyosteoarthritis, unspecified 01/19/2022 Presence of aortocoronary bypass graft Type 2 diabetes mellitus wit h diabetic peripheral angiopathy without gangrene 01/19/2022 Type 2 diabetes mellitus with foot ulcer (CODE) 01/19/2022 Type 2 diabetes mellitus with other specified co mplication 01/19/2022 Atherosclerosis of coronary artery bypass graft(s) without angina pectoris 01/19/2022 Carotid stenosis, right 02/21/2021 Overview (02/21/2021): Added automatically from request for surgery [id number] Coronary artery disease of n ative heart with stable angina pectoris 05/26/2019 Overview (05/26/2019): Added automatically from request for surgery [id number] Cerebrovascular accident (CV A) due to occlusion of cerebral artery 10/29/2017 Surgical History Surgery Date Site/Laterality Comments ROTATOR CUFF REPAIR Right CARPAL TUNNEL RELEASE Bilateral MANDIBLE FRACTURE SURGERY CAROTID STENT Right EXCHANGE PICC LINE 01/23/2022 Left CORONARY ARTERY BYPASS GRAFT AMPUTATION Left 2nd toe Medical History Medical History Date Comments DISH (diffuse idiopathic skeletal hyperostosis) Stroke (HCC) Type 2 diabetes mellitus (HCC) Coronary artery disease Hyperlipidemia Hypertension Arthritis Cataract Carotid stenosis PVD (peripheral vascular disease) (HCC) Headache Chronic pain disorder CAD (coronary artery disease) Family History Medical History Relation Name Comments brain tumor Daughter Cancer Father Heart disease Father Heart disease Mother Relation Name Status Comments Daughter Father Mother Social History Tobacco Use Types Packs/Day Years Used Date Smoking Tobacco: Former Smokeless Tobacco: Never Tobacco Cessation:Counseling Given: Not Answered Comments:30+ years ago Social Connection and Isolat ion Panel [NHANES] Answer Date Recorded In a typical week, how many times do you talk on the phone with family, friends, or neighbors? More than three times a week 08/15/2022 How often do you get togethe r with friends or relatives? More than three times a week 08/15/2022 Attends Congregational Services Not on file 08/15 Active Member of Clubs or Organizations Not on f ile 08/15/2022 Attends Club or Organization Meetings Not on tom e 08/15/2022 Are you , , di vorced, , never , or living with a partner? 08/15/2022 AUDIT-C Answer Date Recorded Q1: How often do you have a drink containing alc ohol? Never 05/15/2021 Average Number of Drinks Not on file 022 Frequency of Binge Drinking Not on file 04/19 Overall Financial Resource Strain (CARDIA) Answe r Date Recorded How hard is it for you to pa y for the very basics like food, housing, medical care, and heating? Not very hard 08/15/2022 Hunger Vital Sign Answer Date Recorded Within the past 12 months, y ou worried that your food would run out before you got the money to buy more. Never true 08/16/19 23 Within the past 12 months, t he food you bought just didn't last and you didn't have money to get more. Never true 08/15/2022 PRAPARE - Transportation Answer Date Re corded In the past 12 months, has l ack of transportation kept you from medical appointments or from getting medications? No 07/18 In the past 12 months, has l ack of transportation kept you from meetings, work, or from getting things needed for daily living? No 08/15/2022 Housing Stability Vital Sign Answer Sukumar e Recorded In the last 12 months, was t here a time when you were not able to pay the mortgage or rent on time? No 08/15/2022 Number of Places Lived in the Last Year Not on f ile 08/15/2022 In the last 12 months, was t here a time when you did not have a steady place to sleep or slept in a alf (including now)? No 08/15/2022 Personal Safety Answer Date Recorded Have you ever been in or are you currently in a harmful physical or emotional relationship or is someone making you feel afraid or unsafe? Denies 08/14/2022 Sex and Gender Information Value Date Recorded Sex Assigned at Not on file Legal Sex Male 3:42 AM EQUINE MANAGER Gender Identity Not on file Sexual Orientation Not on file Obstetrics History Last Filed Vital Signs Vital Sign Reading Time Taken Comments Blood Pressure 95/36 08/15/2022 1:58 AM CDT Pulse 80 08/15/2022 12:45 PM CDT Temperature 36.7 ??C (98 ??F) 08/15/2022 12:00 PM CDT Respiratory Rate 18 08/15/2022 7:30 AM CDT Oxygen Saturation 95% 08/15/2022 4:00 AM CDT Inhaled Oxygen Concentration - - Weight 89.6 kg (197 lb 8.5 oz) 08/14/2022 12:36 PM CDT Height 175.3 cm (5' 9 ) 08/14/2022 6:07 AM CDT Body Mass Index 29.17 08/14/2022 6:07 AM CDT Plan of Treatment Health Maintenance Due Date Last Done Comments Albumin Creatinine Ratio, Urine 1955 Colon Cancer Screening-Colonoscopy 1954 Depression Screening 1954 Hepatitis C Screening 1954 Prostate Cancer Screening-PSA 1954 Dilated Eye Exam 1954 Foot Exam 1954 Pneumococcal vaccine 65+ (1 of 2 - PCV) 1960 DTaP/Tdap/Td Vaccine (1 - Tdap) 1965 Hepatitis B Screening 1972 Zoster Vaccine (1 of 2) 2004 Lipid Panel 10/30/2018 10/30/2017 Abdominal Aortic Aneurysm (A AA) Screen 2019 Well Visit 65+ 2019 Hemoglobin A1C 08/16/2021 02/15/2021 Fall Risk Assessment 08/16/2023 08/15/2022 eGFR 08/16/2023 08/15/2022, 07/18, 07/10/2022, Additional history exists Covid-19 Vaccine (3 - 2023-2 5 season) 2023 05/18/2020, 04/20/2020 Influenza Vaccine (#1) 2023 01/09/2019, 2017 Medical Devices Implanted Type Area Title Assistant Device Identifier Shelf Expiration Date Model / Serial / Lot [employer]Food[employer] Can [employer] Deondre Angio-Seal Vip 6fr Closere Device [id number] - [id number] Implanted:Qty: 1 on 08/14/2022 by Jesse Chakraborty MD at [facility] Collagen Right: Common Femoral Artery Ter[employer] Deondre 12/15/2022 [id number] / / [id number] 2 Ernst Vascular [id number] Acculink Od6 Mm; Odsec8 Fr L30 Mm L100 Cm Self Expandable; Rapid - [id number] Implanted:Qty: 1 on 03/07/2021 by Jesse Chakraborty MD at [facility] Stent Right: Carotid Ernst Vascular 07/15/2022 [id number] / / [id number] [employer] Deondre Stent Coronary Drug Eluting Rapid Exchange Synergy Megatron 5.99m33rw [place] Chromium [id number] - [id number] Implanted:Qty: 1 on 08/14/2022 by Jesse Chakraborty MD at [facility] Stent Right: Internal Carotid Artery [employer] Deondre 08/15/2022 [id number] / / [id number] [employer] Deondre Stent Drug Eluting S Cari Us Mr 5.21z06mu [id number] - [id number] Implanted:Qty: 1 on 08/14/2022 by Jesse Chakraborty MD at [facility] Stent Right: Internal Carotid Artery [employer] Deondre 01/03/2023 [id number] / / [id number] Dai Deondre [id number] Device Closure Angio-Seal Vip Bondek-Plus Polyglyd L70 Cm Od6 Fr Odsec.035 In Vascular - [id number] Implanted:Qty: 1 on 03/07/2021 by Jesse Chakraborty MD at [facility] Right: Groin Terum[employer] Deondre 11/15/2021 [id number] / / [id number] [facility] Mynxgrip 5fr Balloon Catheter Integrate Sealant Lock Latex Free [id number] - [id number] Implanted:Qty: 1 on 07/10/2022 by Jesse Chakraborty MD at [facility] 04/17/2023 [id number] / / [id number] Explanted Type Area Title Assistant Device Identifier Shelf Expiration Date Model / Serial / Lot Ernst Vascular [id number] Emboshield Nav6 2.5-4.8mm 5-6fr 190cm Guidewire Radiopaque - [id number] Explanted:Qty : 1 on 03/07/2021 at [facility] Aneurysm Coils Right: Carotid Ernst Vascular [id number] 10/16/2023 [id number] / / [id number] Procedures Procedure Name Priority Date/Time Associated Diagnosis Comments EGFR Routine 08/15/2022 3:32 AM CDT HEMOGLOBIN A1C Routine 02/15/2021 11:43 AM EQUINE MANAGER Preop testing from Last 3 Months or Most Recently Relevant to Health Maintenance Results * eGFR (08/15/2022 3:32 AM CDT) [facility] eGFR 88 mL/min/1. 73 m2 [facility] SIFUENT[facility] Comment: Interpretive Data Reference Interval Normal ?>/= 90 mL/min/1.73m2 Mildly decreased* ? 60 - 89 mL/min/1.73m2 Mildly to moderately decreased ?45 - 59 mL/min/1.73m2 Moderately to severely decreased ??30 - 44 mL/min/1.73m2 Severely decreased ?15 - 29 mL/min/1.73m2 Kidney Failure ?< 15 ??mL/min/1.73m2 *Relative to young adult level Estimated glomerular filtration rate is determined by the 2020 CKD-EPI equation recommended by the National Kidney Foundation (A Unifying Approach to GFR Estimation: Recommendations of the NKF-ASK Task Force on Reassessing the Inclusion of Race in Diagnosing Kidney Disease, JASN 2020). The CKD-EPI equation should not be used for patients with unstable renal function and has not been validated in children and those over 70. Current interpretive data was last reviewed 2021. Blood 08/15/2022 3:32 AM CDT 08/15/2022 3:41 AM CDT us Jesse Chakraborty MD LAB BLOOD ORDERABLES Final Res ult [facility] [address] [address] [place] [address] * (ABNORMAL) Hemoglobin A1c (02/15/2021 11:43 AM EQUINE MANAGER) Hgb A1C 7.9(H) 4.0 - 5.6 % [facility] SIFUENTES Estimated Average Glucose 180 mg/dL [facility] SIFUENTES Comment: The ADA recommends reporting an estimated Average Glucose (eAG) with all Hemoglobin A1c results using the equation derived from a study of 507 normal and diabetic adults. ??Minority populations were underrepresented and children were not included. ?? (Diabetes Care 31:5872-9586, 2008). ??The eAG is not equivalent to a fasting glucose. Blood 02/15/2021 11:4 3 AM EQUINE MANAGER 02/16/2021 7:46 AM EQUINE MANAGER Herbre Reed MD LAB BLOOD [place] [address] [address] Department of Laboratories [place] [id number] from Last 3 Months or Most Recently Relevant to Health Maintenance Insurance [facility] HMO/PPO Address: [address] [address] [place] [address] MEDICARE [facility] IDPA IDPA MEDICARE SOLUTIONS [facility] MEDICARE Address: [address] [address] [place] [address] IDPA MEDICARE SOLUTIONS [facility] MEDICARE Address: [address] [address] [place] [address] Advance Directives For more information, please contact: [phone] * Full Code (Latest Code Status on File) Date Activated Date Inactivated Comments 08/14/2022 12:40 PM 08/15/2022 5:53 PM * Full Code Date Activated Date Inactivated Comments 08/14/2022 12:37 PM 08/14/2022 12:40 PM * Full Code Date Activated Date Inactivated Comments 07/10/2022 4:52 PM 07/10/2022 9:48 PM * Full Code Date Activated Date Inactivated Comments 05/15/2021 2:42 PM 05/20/2021 7:00 PM * Full Code Date Activated Date Inactivated Comments 04/17/2021 8:19 AM 04/17/2021 4:19 PM Care Teams Sorting Machine Operator Relationship Specialty Start Date End Date Bonnie Marie MD [address] [address] PCP - General Family Medicine 04/09/19 Matthew Castano DO [address] [address] Referring Physician Internal Medicine 05/20/21
--- OUTSIDE RECORDS SUMMARY | 2024-04-20 14:13 | XMS_ITS | Clinical Summary ---
Author Organization [facility] Address [address] [place] [address]. [place] [address] [place] [address] Care Team Providers Care Er Rn Name Role Phone Bonnie Marie MD Primary Care Provider [phone] Allergies Active Allergy Reactions Criticality Noted Date Comments Poison Keyla Extract Rash Low 11/08/2022 Medications clopidogrel (PLAVIX) 75 MG tablet Take 1 tablet (75 mg total) by mouth daily. Active carvedilol (COREG) 12.5 MG tablet Take 1 tablet (12.5 mg total) by mouth 2 (two) times daily. Active empagliflozin (JARDIANCE) 25 MG tablet Take 1 tablet (25 mg total) by mouth daily. Active fenofibrate 160 MG tablet Take 1 tablet (160 mg total) by mouth daily. Active losartan (COZAAR) 50 MG tablet Take 1 tablet (50 mg total) by mouth daily. Active aspirin EC (ECOTRIN) 81 MG tablet Take 1 tablet (81 mg total) by mouth daily. Active HYDROcodone-nakul taminophen (NORCO) 10-325 MG tablet Take 1 tablet by mouth every 6 (six) hours as needed for Pain. Active atorvastatin (LIPITOR) 40 MG tablet Take 1 tablet (40 mg total) by mouth nightly at bedtime. Active aspirin-acetami nophen-caffeine (EXCEDRIN MIGRAINE) 250-250-65 MG tablet Take by mouth every 6 (six) hours as needed for Pain. 80mg PRN Active Immunizations Name Administration Dates Next Due MODERNA COVID-19 (12+) MRNA, LNP-S, PF, 100 MCG/ 0.5 ML DOSE 05/18/2020,04/20/2020 Social History Tobacco Use Types Packs/Day Years Used Date Smoking Tobacco: Former Cigarettes Smokeless Tobacco: Never Tobacco Cessation:Counseling Given: Not Answered Alcohol Use Standard Drinks/Week Comments Not Currently 0 (1 standard drink = 0.6 oz pur e alcohol) Sex and Gender Information Value Date Recorded Sex Assigned at Not on file Legal Sex Male 7:03 PM CDT Gender Identity Not on file Sexual Orientation Not on file Last Filed Vital Signs Vital Sign Reading Time Taken Comments Blood Pressure 139/67 11/08/2022 12:19 AM CDT Pulse 86 11/08/2022 12:19 AM CDT Temperature 36.8 ??C (98.3 ??F) 11/08/2022 12:19 AM C DT Respiratory Rate 18 11/08/2022 12:19 AM CDT Oxygen Saturation 98% 11/08/2022 12:19 AM CDT Inhaled Oxygen Concentration - - Weight 86.2 kg (190 lb) 11/08/2022 12:19 AM CDT Height 175.3 cm (5' 9 ) 11/08/2022 12:19 AM CDT Body Mass Index 28.06 11/08/2022 12:19 AM CDT Plan of Treatment Health Maintenance Due Date Last Done Comments Colorectal Cancer Screening Colonoscopy (10 Years) 1954 Hepatitis C 1972 DTaP, Tdap and Td Vaccines ( 1 - Tdap) 1973 Zoster Vaccines (1 of 2) 2004 Annual Medicare Wellness Visit 2019 Pneumococcal Vaccine: 65+ Years (1 of 1 - PCV) 2019 COVID-19 Vaccine (3 - 2023-2 5 season) 2023 05/18/2020, 04/20/2020 Influenza Adult (#1) 2023 RSV Immunization or 60+ Years (1 - 1-dose 75+ series) 2029 Meningococcal B Vaccine Aged Out No l onger eligible based on patient's age to complete this topic Meningococcal Vaccine Aged Out No kit barbara eligible based on patient's age to complete this topic RSV Immunizations Under 20 Months Aged Out No longer eligible b ased on patient's age to complete this topic Insurance [facility] [address] MEDICAID Care Teams Er Rn Relationship Specialty Start Date End Date Bonnie Marie MD [address] [facility] [address] [place] [address] PCP - General FAMILY PRACTICE 03/30/19
--- OUTSIDE RECORDS SUMMARY | 2024-04-20 14:13 | XMS_ITS | Referral Summary ---
Author Organization [facility] [address] Address [address] [place] [address] Care Team Providers Care Turning Machine Operator Name Role Phone Bonnie Marie MD Primary Care Provider Matthew Castano Shirley DO Unavailable [phone] Allergies No known active allergies Medications fenofibrate [...] 07/10/2022 Acute osteomyelitis of phalanx of foot ([facility]) 04/18/2022 07/23/2022 Cellulitis of toe of left foot 04/18/2022 0 07/23/2022 Ulcer of toe ([facility]) 04/18/2022 Peripheral artery disease 02/12/20222022 Ankylosing hyperostosis (forestier), site unspec ified 01/19/2022 Chronic obstructive pulmonary disease, unspecifi ed 01/19/2022 Chronic pain syndrome 01/19/2022 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) hypertension 01/19/2022 Mixed hyperlipidemia 01/19/2022 Non-pressure chronic ulcer o f other part of left foot limited to breakdown of skin 01/19/2022 Osteomyelitis, unspecified 01/19/2022 Paroxysmal atrial fibrillation ([facility]) 022 Peripheral vascular angiopla sty status with [...] (02/21/2021): Added automatically from request for surgery [id number] Coronary artery disease of n ative heart with stable angina pectoris 05/26/2019 Overview (05/26/2019): Added automatically from request for surgery [id number] Cerebrovascular accident (CV A) due to occlusion of cerebral artery 10/29/2017 Social History Tobacco Use Types Packs/Day Years [...] than three times a week 08/15/2022 Attends Confucianism Services Not on file 08/15 Active Member [...] on file Legal Sex Male 3:42 AM FINAL INSPECTOR Gender Identity Not on file Sexual Orientation [...] 08/14/2022 6:07 AM CDT Plan of Treatment Not on file Medical Devices Implanted Type Area Career Technical Counselor Device Identifier Shelf Expiration Date Model / Serial / Lot [employer] Deondre Angio-Seal Vip 6fr Closere Device [id number] - [id number] Implanted:Qty: 1 on 08/14/2022 by Jesse Chakraborty MD at [facility] Collagen Right: Common Femoral Artery [employer] Deondre 12/15/2022 [id number] / / [id number] 2 Ernst Vascular [id number] Acculink Od6 Mm; Odsec8 Fr L30 Mm L100 Cm Self Expandable; Rapid - [id number] Implanted:Qty: 1 on 03/07/2021 by Jesse Chakraborty MD at [facility] Stent Right: Carotid Ernst Vascular 07/15/2022 [id number] / / [id number] [employer] Deondre Stent Coronary Drug Eluting Rapid Exchange Synergy Megatron 5.85v64ro [place] Chromium [id number] - [id number] Implanted:Qty: 1 on 08/14/2022 by Jesse Chakraborty MD at [facility] Stent Right: Internal Carotid Artery [employer] Deondre 08/15/2022 [id number] / / [id number] [employer] Deondre Stent Drug Eluting S Megatron Us Mr 5.76x50id [id number] - [id number] Implanted:Qty: 1 on 08/14/2022 by Jesse Chakraborty MD at [facility] Stent Right: Internal Carotid Artery [employer] Deondre 01/03/2023 [id number] / / [id number] Daig Deondre [id number] Device Closure Angio-Seal Vip Bondek-Plus Polyglyd L70 Cm Od6 Fr Odsec.035 In Vascular - [id number] Implanted:Qty: 1 on 03/07/2021 by Jesse Chakraborty MD at [facility] Right: Groin [employer] Deondre 11/15/2021 [id number] / / [id number] [facility] Mynxgrip 5fr Balloon Catheter Integrate Sealant Lock Latex Free [id number] - [id number] Implanted:Qty: 1 on 07/10/2022 by Jesse Chakraborty MD at [facility] 04/17/2023 [id number] / / [id number] Explanted Type Area Career Technical Counselor Device Identifier Shelf Expiration Date Model / Serial / Lot Ernst Vascular [id number] Emboshield Nav6 2.5-4.8mm 5-6fr 190cm Guidewire Radiopaque - [id number] Explanted:Qty : 1 on 03/07/2021 at [facility] Aneurysm Coils Right: Carotid Ernst Vascular [id number] 10/16/2023 64894-01 / / [id number] Procedures Procedure Name Priority Date/Time Associated Diagnosis Comments EGFR Routine 08/15/2022 3:32 AM CDT HEMOGLOBIN A1C Routine 02/15/2021 11:43 AM FINAL INSPECTOR Preop testing from Last 3 Months or Most Recently Relevant to Health Maintenance Results * eGFR (08/15/2022 3:32 AM CDT) eGFR 88 mL/min/1. 73 m2 [facility] S[facility] [...] LAB BLOOD ORDERABLES Final Res ult [facility] [place] [address] Department [place] [address] * (ABNORMAL) Hemoglobin A1c (02/15/2021 11:43 AM FINAL INSPECTOR) Hgb A1C 7.9(H) 4.0 - 5.6 % [facility] SIFUENTES Estimated Average Glucose 180 mg/dL [facility] SIFUENT[facility] Comment: The ADA recommends reporting an estimated Average Glucose (eAG) with all Hemoglobin A1c results using the equation derived from a study of 507 normal and diabetic adults. ??Minority populations were underrepresented and children were not included. ?? (Diabetes Care 31:2528-1166, 2008). ??The eAG is not equivalent to a fasting glucose. Blood 02/15/2021 11:4 3 AM FINAL INSPECTOR 02/16/2021 7:46 AM FINAL INSPECTOR us Herber Reed MD LAB BLOOD ORDERABLES Final R esult [facility] [place] [address] [address] Department [place] [address] from Last 3 Months or Most Recently Relevant to Health Maintenance Insurance MEDICARE [facility] IDPA MEDICARE SOLUTIONS [facility] IDFL MEDICARE SOLUTIONS Advance Directives For more information, please contact: [phone] * Full Code (Latest Code Status on [...] 8:19 AM 04/17/2021 4:19 PM Care Teams Turning Machine Operator Relationship Specialty Start Date End Date Bonnie Marie MD [address] [place] [address] PCP - General Family Medicine 04/09/19 Matthew Castano DO [address] [place] [address] Referring Physician Internal Medicine 05/20/21
[2024-04-20 14:19] LABS: Alanine Aminotransferase 22 U/L (6-50); Alkaline Phosphatase 88 U/L (38-126); Anion Gap 14 mmol/L (4-12); Aspartate Amino Transferase 24 U/L (17-59); Bilirubin,Total 0.7 mg/dL (0.2-1.3); Blood Urea Nitrogen 22 mg/dL (9-20); Calcium 8.7 mg/dL (8.4-10.2); Carbon Dioxide 22 mmol/L (22-30); Chloride 105 mmol/L (98-107); Estimated Glomerular Filt Rate > 60; Glucose 231 mg/dL (65-110); Potassium 4.2 mmol/L (3.4-5.0); Sodium 141 mmol/L (137-145)
[2024-04-20 15:46] LABS: Hemoglobin A1C 7.6 % (<5.7)
[2024-04-21 22:34] LABS: Amphetamines NEGATIVE ng/mL (<500); Barbiturates NEGATIVE ng/mL (<300); Benzodiazepines NEGATIVE ng/mL (<100); Cocaine Metabolite NEGATIVE ng/mL (<150); Marijuana Metabolite NEGATIVE ng/mL (<20); Methadone Metabolite NEGATIVE ng/mL (<100); Opiates POSITIVE ng/mL (<100); Oxidant NEGATIVE mcg/mL (<200); PCP NEGATIVE ng/mL (<25); pH 5.1 (4.5-9.0)
== END 2024-04-20 13:18 | disposition home or self-care (01) ==
PROVIDERS: PCP Family Medicine; Visit Provider Student in an Organized Health Care Education/Training Program
DX: F11.90 Opioid use, unspecified, uncomplicated (principal); E11.9 Type 2 diabetes mellitus without complications; I10 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) hypertension
CPT/HCPCS: 36415; 80053; 80307; 83036

== ENCOUNTER 2024-08-12 12:12 | Outpatient (CLI) | payer MEDICARE, SELFPAY ==
--- NOTE | ~2024-08-12 | XR_ITS ---
Right Shoulder Technique: AP and axillary views were obtained. Clinical History: Pain Findings: No fracture or dislocation is seen. Osseous alignment is anatomic. The glenohumeral joint d emonstrates large inferomedial humeral head osteophyte. There is moderate AC joint degenerative reyes e. Soft tissues are unremarkable. Impression: Severe glenohumeral joint degenerative change. Moderate AC joint degenerative change. Reviewed, dictated and finalized at location M. Impression: Severe glenohumeral joint degenerative change. Moderate AC joint degenerative c andres.
--- OUTSIDE RECORDS SUMMARY | 2024-08-12 12:15 | XMS_ITS | Clinical Summary ---
Author Organization [facility] Address [address] [place] [address] Care Team Providers Care Network Applications Specialist Name Role Phone Bonnie Marie MD Primary Care Provider + Source Comments [facility] [employer],non-owned Affiliates and Associated Physician Practices is amultiple site organization consisting of ambulatory clinics and hospital sitesin [place], [place], [place] and [place]. This disclosure is being madepursuant to the Care Everywhere program and may not contain all information available regarding this patient. Last updated 17.[facility] [employer] Allergies No known active allergies Medications * Be aware that medications may not be up to date on this document. Alwaysverify current medications with the patient. HYDROcodone-nakul taminophen (NORCO) 10-325 MG tablet Take 1 tablet by mouth every 8 hours as needed for Pain Active aspirin (ASPIRIN) 81 MG chew tablet Take 1 tablet by mouth once daily 11/01/2017 Active atorvastatin (LIPITOR) 40 MG tablet Take 1 tablet by mouth at bedtime 30 tablet 3 10/31/2017 Active clopidogrel (PLAVIX) 75 MG tablet Take 1 tablet by mouth once daily 30 tablet 3 11/01/2017 Active empagliflozin (JARDIANCE) 25 MG tablet Take 25 mg by mouth once daily Active Insulin Lispro (HUMALOG KWIKPEN SC) Active Insulin Glargine (LANTUS SC) Active fenofibrate micronized (LOFIBRA) 134 MG capsule Take 134 mg by mouth once daily Take with largest meal of the day. Active lisinopril (PRINIVIL; ZESTRIL) 10 MG tablet Take 10 mg by mouth once daily 1 02/03/2018 Active Active Problems Problem Noted Date Diagnosed Date Cerebrovascular accident (CV A) due to occlusion of cerebral artery 10/29/2017 Family History Medical History Relation Name Comments CAD (Coronary Artery Disease) Father Cancer - Bladder Father Cancer - Prostate Father Alzheimer's Disease Mother Depression Neg Hx Seizures Neg Hx Relation Name Status Comments Father Mother Social History Tobacco Use Types Packs/Day Years Used Date Smoking Tobacco: Former Cigarettes Smokeless Tobacco: Never Alcohol Use Standard Drinks/Week Comments No 0 (1 standard drink = 0.6 oz pur e alcohol) Sex and Gender Information Value Date Recorded Sex Assigned at Not on file Legal Sex Male 6:13 AM QUILLER TENDER Gender Identity Not on file Sexual Orientation Not on file Last Filed Vital Signs Vital Sign Reading Time Taken Comments Blood Pressure 134/75 02/28/2018 10:48 AM QUILLER TENDER Pulse 72 02/28/2018 10:48 AM QUILLER TENDER Temperature 36.4 C (97.6 F) 02/28/2018 10:48 AM QUILLER TENDER Respiratory Rate 18 10/31/2017 4:26 PM CDT Oxygen Saturation 95% 11/25/2017 2:17 PM CDT Inhaled Oxygen Concentration - - Weight 89.8 kg (198 lb) 02/28/2018 10:48 AM QUILLER TENDER Height 175.3 cm (5' 9) 02/28/2018 10:48 AM QUILLER TENDER Body Mass Index 29.24 02/28/2018 10:48 AM QUILLER TENDER Plan of Treatment Health Maintenance Due Date Last Done Comments COLOGUARD (AGES 45-75) - COLON CA SCREENING 1954 COLON MONITORING 1954 COLONOSCOPY - COLON CA SCREENING 1954 CT COLONOGRAPHY - COLON CA SCREENING 1954 Colorectal Cancer Screening 1954 FIT - COLON CA SCREENING 1954 FLEX SIG - COLON CA SCREENING 1954 HEPATITIS C SCREENING 04/30/1972 DTAP/TDAP/TD VACCINES (1 - Tdap) 1973 PNEUMOCOCCAL VACCINE 50+ (1 of 1 - PCV) 2004 ZOSTER VACCINE (1 of 2) 2004 AAA SCREENING 2019 SCREENING FOR DIABETES 10/31/2020 8, 10/31/2017, 10/31/2017, Additional history exists COVID-19 VACCINE (2023- season) 2023 DEPRESSION SCREENING 03/18/2024 INFLUENZA VACCINE (Season Ended) 2024 Respiratory Syncytial Virus (RSV) Vaccine Pt: or over 60 yrs (1 - 1-dose 75+ series) 2029 HEPATITIS B VACCINE Aged Out No longe r eligible based on patient's age to complete this topic HIB VACCINE Aged Out No longer eligi ble based on patient's age to complete this topic HPV VACCINE Aged Out No longer eligi ble based on patient's age to complete this topic MENINGOCOCCAL (Group B) VACCINE SHARED DECISION-MAKING Aged Out No longer eligible based on patient's age to complete this topic MENINGOCOCCAL GROUPS A/C/Y/W VACCINE Aged Out No longer eligible based on patient's age to complete this topic Procedures Procedure Name Priority Date/Time Associated Diagnosis Comments BASIC METABOLIC PANEL (CALCIUM TOTAL) Routine 10/31/2017 6:29 AM CDT from Last 3 Months or Most Recently Relevant to Health Maintenance Results * (ABNORMAL) BASIC METABOLIC PANEL (CALCIUM TOTAL) (10/31/2017 6:29 AM CDT) BUN 15 7 - 26 mg/dL 10/31/2017 7:14 AM [facility] Creatinine 0.7 0.6 - 1.2 mg/dL 10/31/2017 7:14 AM [facility] Sodium 140 136 - 145 mmol/L 10/31/2017 7:14 AM [facility] Potassium 4.1 3.5 - 4.5 mmol/L 10/31/2017 7:14 AM [facility] Chloride 108(H) 98 - 107 mmol/L 10/31/2017 7:14 AM [facility] CO2 23 22 - 29 mmol/L 10/31/2017 7:14 AM [facility] Glucose 134(H) 70 - 115 mg/dL 10/31/2017 7:14 AM [facility] Calcium 9.0 8.4 - 10.2 mg/dL 10/31/2017 7:14 AM [facility] Anion Gap 13 8 - 18 10/31/2017 7:14 AM [facility] BUN/Creatinine Ratio 21 7 - 23 10/31/2017 7:14 AM [facility] Osmolality Calculated 293 270 - 300 mOsm/kg 10/31/2017 7:14 AM [facility] eGFR >60 >60 mL/min/1.7 3 m2 10/31/2017 7:14 AM [facility] Blood BLOOD SPECIMEN / Unknown Lab Venipuncture / Unknown 10/31/2017 6:29 AM CDT 10/31/2017 6:40 AM T us Maxime Dozier MD LAB - CHEMISTRY ORDERABLES Final Result [facility] [address] [phone] from Last 3 Months or Most Recently Relevant to Health Maintenance Insurance [facility] [address] [place] [address] CARE Advance Directives * Full Code (Latest Code Status on File) Date Activated Date Inactivated Comments 10/29/2017 2:27 PM 10/31/2017 7:51 PM * Full Code Date Activated Date Inactivated Comments 10/29/2017 7:22 AM 10/29/2017 2:27 PM Care Teams Network Applications Specialist Relationship Specialty Start Date End Date Bonnie Marie MD [address] [place] [id number] PCP - General 11/07/17
--- OUTSIDE RECORDS SUMMARY | 2024-08-12 12:16 | XMS_ITS | Referral Summary ---
Author Organization [facility] [address] Address [address] [place] [address] Care Team Providers Care Clinical Dietician Name Role Phone Bonnie Marie MD Primary Care Provider Matthew Castano DO Unavailable [phone] Allergies No known active allergies Medications fenofibrate [...] 07/10/2022 Acute osteomyelitis of phalanx of foot 3 07/23/2022 Cellulitis of toe of left foot 04/18/2022 0 07/23/2022 Ulcer of toe 04/18/2022 07/23/2022 Peripheral artery disease 02/12/20222022 Ankylosing hyperostosis (forestier), site unspec ified 01/19/2022 Chronic obstructive pulmonary disease, unspecifi ed 01/19/2022 Chronic pain syndrome 01/19/2022 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) hypertension 01/19/2022 Mixed hyperlipidemia 01/19/2022 Non-pressure chronic ulcer o f other part of left foot limited to breakdown of skin 01/19/2022 Osteomyelitis, unspecified 01/19/2022 Paroxysmal atrial fibrillation 01/19/2022 Peripheral vascular angiopla sty status with implants [...] (02/21/2021): Added automatically from request for surgery [id number] Coronary artery disease of n ative heart with stable angina pectoris 05/26/2019 Overview (05/26/2019): Added automatically from request for surgery [id number] Cerebrovascular accident (CV A) due to occlusion [...] than three times a week 08/15/2022 Attends Scientology Services Not on file 08/15 Active Member [...] place to sleep or slept in a mcc (including now)? No 08/15/2022 Personal Safety Answer Date Recorded Have you ever been in or are you currently in a harmful physical or emotional relationship or is someone making you feel afraid or unsafe? Denies 08/14/2022 Sex and Gender Information Value Date Recorded Sex Assigned at Not on file Legal Sex Male 3:42 AM PUMPING STATION SUPERVISOR Gender Identity Not on file Sexual Orientation Not on file Last Filed Vital Signs Vital Sign Reading Time Taken Comments Blood Pressure 95/36 08/15/2022 1:58 AM CDT Pulse 80 08/15/2022 12:45 PM CDT Temperature 36.7 C (98 F) 08/15/2022 12:00 PM CDT Respiratory Rate 18 08/15/2022 7:30 AM CDT Oxygen Saturation 95% 08/15/2022 4:00 AM CDT Inhaled Oxygen Concentration - - Weight 89.6 kg (197 lb 8.5 oz) 08/14/2022 12:36 PM CDT Height 175.3 cm (5' 9) 08/14/2022 6:07 AM CDT Body Mass Index 29.17 08/14/2022 6:07 AM CDT Plan of Treatment Not on file Medical Devices Implanted Type Area Pillow Filler Device Identifier Shelf Expiration Date Model / Serial / Lot TerAnystream Deondre Angio-Seal Vip 6fr Closere Device [id number] - [id number] Implanted:Qty: 1 on 08/14/2022 by Jesse Chakraborty MD at [facility] Collagen Right: Common Femoral Artery Ter[employer]o [employer] Deondre 12/15/2022 [id number] / / [id number] Ernst Vascular [id number] Acculink Od6 Mm; Odsec8 Fr L30 Mm L100 Cm Self Expandable; Rapid - [id number] Implanted:Qty: 1 on 03/07/2021 by Jesse Chakraborty MD at [facility] Stent Right: Carotid [employer] 07/15/2022 [id number] / / [id number] [employer] Stent Coronary Drug Eluting Rapid Exchange Synergy Megatron 5.14e29qm [place] Chromium [id number] - [id number] Implanted:Qty: 1 on 08/14/2022 by Jesse Chakraborty MD at [facility] Stent Right: Internal Carotid Artery [employer] Deondre 08/15/2022 [id number] / / [id number] [employer] Deondre Stent Drug Eluting S Megatron Us Mr 5.45d69ys [id number] - [id number] Implanted:Qty: 1 on 08/14/2022 by Jesse Chakraborty MD at [facility] Stent Right: Internal Carotid Artery [employer] Deondre 01/03/2023 [id number] / / [id number] Daig Deondre [id number] Device Closure Angio-Seal Vip Bondek-Plus Polyglyd L70 Cm Od6 Fr Odsec.035 In Vascular - [id number] Implanted:Qty: 1 on 03/07/2021 by Jesse Chakraborty MD at [facility] Right: Groin [employer] Deondre 11/15/2021 [id number] / / [id number] [facility] Mynxgrip 5fr Balloon Catheter Integrate Sealant Lock Latex Free [id number] - [id number] Implanted:Qty: 1 on 07/10/2022 by Jesse Chakraborty MD at [facility] 04/17/2023 [id number] / / [id number] Explanted Type Area Pillow Filler Device Identifier Shelf Expiration Date Model / Serial / Lot Ernst Vascular [id number] Emboshield Nav6 2.5-4.8mm 5-6fr 190cm Guidewire Radiopaque - [id number] Explanted:Qty : 1 on 03/07/[address] [facility] Aneurysm Coils Right: Carotid [employer] [id number] 10/16/2023 [id number] / / [id number] Procedures Procedure Name Priority Date/Time Associated Diagnosis Comments EGFR Routine 08/15/2022 3:32 AM CDT HEMOGLOBIN A1C Routine 02/15/2021 11:43 AM PUMPING STATION SUPERVISOR Preop testing from Last 3 Months or Most Recently Relevant to Health Maintenance Results * eGFR (08/15/2022 3:32 AM CDT) eGFR 88 mL/min/1. 73 m2 [facility] SIFUENTES Comment: Interpretive Data Reference Interval Normal >/= 90 mL/min/1.73m2 Mildly decreased* 60 - 89 mL/min/1.73m2 Mildly to moderately decreased 45 - 59 mL/min/1.73m2 Moderately to severely decreased 30 - 44 mL/min/1.73m2 Severely decreased 15 - 29 mL/min/1.73m2 Kidney Failure < 15 mL/min/1.73m2 *Relative to young adult level Estimated glomerular [...] LAB BLOOD ORDERABLES Final Res ult [facility] [address] [facility] [place] [address] * (ABNORMAL) Hemoglobin A1c (02/15/2021 11:43 AM PUMPING STATION SUPERVISOR) Hgb A1C 7.9(H) 4.0 - 5.6 % [facility] Estimated Average Glucose 180 mg/dL [facility] SIFUENTES Comment: The ADA recommends reporting an estimated Average Glucose (eAG) with all Hemoglobin A1c results using the equation derived from a study of 507 normal and diabetic adults. Minority populations were underrepresented and children were not included. (Diabetes Care 31:1636-6184, 2008). The eAG is not equivalent to a fasting glucose. Blood 02/15/2021 11:4 3 AM PUMPING STATION SUPERVISOR 02/16/2021 7:46 AM PUMPING STATION SUPERVISOR us Herber Reed MD LAB BLOOD ORDERABLES Final R esult [facility] [address] [facility] Department [place] [address] from Last 3 Months or Most Recently Relevant to Health Maintenance Insurance MEDICARE [facility] MEDICARE ADVANTAGE [facility] Member Subscriber Plan / Payer (Ef fective 2019-Present) Name:Ernesto Garvey Relation to Subscriber:Self Name:Ernesto Garvey Payer ID:[id number] Type:[employer] Address: [address] [place] [id number] IDPA [facility] MEDICARE ADVANTAGE Advance Directives For more information, please contact: [phone] * Full Code (Latest Code Status on [...] 8:19 AM 04/17/2021 4:19 PM Care Teams Clinical Dietician Relationship Specialty Start Date End Date Bonnie Marie MD [address] [place] [address] PCP - General Family Medicine 04/09/19 Matthew Castano DO [address] [place] [address] Referring Physician Internal Medicine 05/20/21
--- OUTSIDE RECORDS SUMMARY | 2024-08-12 12:16 | XMS_ITS | Clinical Summary ---
Author Organization [facility] [address] Address [address] [place] [address] Care Team Providers Care Chemical Treatment Plant Technician Name Role Phone Bonnie Marie MD Primary Care Provider Matthew Castano DO Unavailable [phone] Allergies No known active allergies Medications fenofibrate [...] (02/21/2021): Added automatically from request for surgery [id number] Coronary artery disease of n ative heart with stable angina pectoris 05/26/2019 Overview (05/26/2019): Added automatically from request for surgery [id number] Cerebrovascular accident (CV A) due to occlusion [...] Cataract Carotid stenosis PVD (peripheral vascular disease) Headache Chronic pain disorder CAD (coronary artery [...] than three times a week 08/15/2022 Attends Zoroastrianism Services Not on file 08/15 Active Member [...] place to sleep or slept in a retirement (including now)? No 08/15/2022 Personal Safety Answer Date Recorded Have you ever been in or are you currently in a harmful physical or emotional relationship or is someone making you feel afraid or unsafe? Denies 08/14/2022 Sex and Gender Information Value Date Recorded Sex Assigned at Not on file Legal Sex Male 3:42 AM CLINICAL OPERATIONS CONSULTANT Gender Identity Not on file Sexual Orientation [...] Depression Screening 1954 Hepatitis C Screening 1954 Dilated Eye Exam 1954 Foot Exam 1954 DTaP/Tdap/Td Vaccine (1 - Tdap) 1965 Hepatitis B Screening 1972 Pneumococcal vaccine 65+ (1 of 2 - PCV) 1973 Zoster Vaccine (1 of 2) 2004 Lipid Panel 10/30/2018 10/30/2017 Abdominal Aortic Aneurysm (A AA) Screen 2019 Well Visit 65+ 2019 Hemoglobin A1C 08/16/2021 02/15/2021, 10/30/2017 Fall Risk Assessment 08/16/2023 08/15/2022 eGFR 08/16/2023 08/15/2022, 07/18, 07/10/2022, Additional history exists Covid-19 Vaccine (2023-2 5 season) 2023 05/18/2020, 04/20/2020 Influenza Vaccine (Season Ended) 2024 01/10/20, 01/02/2018 Medical Devices Implanted Type Area Bridge Mechanic Device Identifier Shelf Expiration Date Model / Serial / Lot Rentables Deondre Angio-Seal Vip 6fr Closere Device [id number] - [id number] Implanted:Qty: 1 on 08/14/2022 by Jesse Chakraborty MD at [facility] Collagen Right: Common Femoral Artery [employer] 12/15/2022 [id number] / / [id number] 2 Ernst Vascular [id number] Acculink Od6 Mm; Odsec8 Fr L30 Mm L100 Cm Self Expandable; Rapid - [id number] Implanted:Qty: 1 on 03/07/2021 by Jesse Chakraborty MD at [facility] Stent Right: Carotid [employer] 07/15/2022 [id number] / / [id number] [employer] Deondre Stent Coronary Drug Eluting Rapid Exchange Synergy Megatron 5.25f37ah [place] Chromium [id number] - [id number] Implanted:Qty: 1 on 08/14/2022 by Jesse Chakraborty MD at [facility] Stent Right: Internal Carotid Artery [employer] Deondre 08/15/2022 [id number] / / [id number] [employer] Deondre Stent Drug Eluting S Megatron Us Mr 5.41n12cd [id number] - [id number] Implanted:Qty: 1 on 08/14/2022 by Jesse Chakraborty MD at [facility] Stent Right: Internal Carotid Artery [employer] Deondre 01/03/2023 [id number] / / [id number] DaiVigilos Deondre [id number] Device Closure Angio-Seal Vip Bondek-Plus Polyglyd L70 Cm Od6 Fr Odsec.035 In Vascular - [id number] Implanted:Qty: 1 on 03/07/2021 by eJsse Chakraborty MD at [facility] Right: Groin Terumo Medical Deondre 11/15/2021 [id number] / / [id number] [facility] Mynxgrip 5fr Balloon Catheter Integrate Sealant Lock Latex Free Wv0003 - [id number] Implanted:Qty: 1 on 07/10/2022 by Jesse Chakraborty MD at [facility] 04/17/2023 [id number] / / [id number] Explanted Type Area Bridge Mechanic Device Identifier Shelf Expiration Date Model / Serial / Lot Ernst Vascular [id number] Emboshield Nav6 2.5-4.8mm 5-6fr 190cm Guidewire Radiopaque - [id number] Explanted:Qty : 1 on 03/07/2021 at [facility] Aneurysm Coils Right: Carotid Ernst [employer] [id number] 10/16/2023 98085-42 / / [id number] Procedures Procedure Name Priority Date/Time Associated Diagnosis Comments EGFR Routine 08/15/2022 3:32 AM CDT HEMOGLOBIN A1C Routine 02/15/2021 11:43 AM CLINICAL OPERATIONS CONSULTANT Preop testing from Last 3 Months or [...] of Race in Diagnosing Kidney Disease, JASN 202). The CKD-EPI equation should not be used for patients with unstable renal function and has not been validated in children and those over 70. Current interpretive data was last reviewed 2021. Blood 08/15/2022 3:32 AM CDT 08/15/2022 3:41 AM CDT us Jesse Chakraborty MD LAB BLOOD ORDERABLES Final Res ult Performing Organization Address [facility] Co de Phone Number [facility] SIF[facility] [id number] [place] [address] * (ABNORMAL) Hemoglobin A1c (02/15/2021 11:43 AM CLINICAL OPERATIONS CONSULTANT) Hgb A1C 7.9(H) 4.0 - 5.6 % [facility] SIFUENTES Estimated Average Glucose 180 mg/dL [facility] SIFUENTES Comment: The ADA recommends reporting an estimated Average Glucose (eAG) with all Hemoglobin A1c results using the equation derived from a study of 507 normal and diabetic adults. Minority populations were underrepresented and children were not included. (Diabetes Care 31:6957-0794, 2008). The eAG is not equivalent to a fasting glucose. Blood 02/15/2021 11:4 3 AM CLINICAL OPERATIONS CONSULTANT 02/16/2021 7:46 AM CLINICAL OPERATIONS CONSULTANT us Herber Reed MD LAB BLOOD ORDERABLES Final R esult Performing Organization Address City/[facility] Co de Phone Number S[facility]NA[facility] SIFUENT[facility] [address] [facility] [place] [address] from Last 3 Months or Most Recently Relevant to Health Maintenance Insurance [facility] HMO/PPO Address: [address] [address] [place] [address] MEDICARE [facility] IDPA [facility] MEDICARE ADVANTAGE [facility] MEDICARE Address: [address] [address] [place] [address] AAR IDPA [facility] MEDICARE ADVANTAGE [facility] MEDICARE Address: [address] [address] [place] [address] Advance Directives For more information, please contact: [phone] * Full Code (Latest Code Status on [...] 8:19 AM 04/17/2021 4:19 PM Care Teams Chemical Treatment Plant Technician Relationship Specialty Start Date End Date Bonnie Marie MD [address] [place] [address] PCP - General Family Medicine 04/09/19 Matthew Castano DO [address] [place] [address] Referring Physician Internal Medicine 05/20/21
--- OUTSIDE RECORDS SUMMARY | 2024-08-12 12:16 | XMS_ITS | Data Portability ---
Author Organization [facility] [employer], Main Office Address [address] [place] [address] Assessment No assessment recorded. Plan of Treatment [...] more view No observ ation record ed. [id number] Not Available 05/16/2022 13:31:52 Result Notes None recorded. Problems Name Problem SNOMED Code Status Onset Date Resolution Date Notes Provider Name and Address Organization Details Recorded Time Edema of foot 552601370 Active Not Available [facility] 3 13:30:11 Cellulitis of toe of left foot 6153930325457 9105 Active 2022 Not Available [facility] 3 13:30:11 Cellulitis of right foot 5820832687699 9105 Active Not Available [facility] 3 13:30:11 Postoperat fer care Active 2022 Not Available [facility] 3 13:30:12 Acute osteomyeli tis of phalanx of toe 368110053 Active 2022 Not Available [facility] 3 13:30:12 Ulcer of toe 206966300 Active 2022 Not Available [facility] 3 13:30:12 Knee pain Active Not Available [facility] 3 13:30:12 Pain in right foot 3262862347838 07 Active Not Available [facility] 3 13:30:12 Charcot's arthropath y 823205125 Active Not Available [facility] 3 13:30:12 Type 2 diabetes mellitus 68223869 Active Not Available [facility] 3 13:30:12 Osteomyeli tis 08369029 Active Not Available [facility] 3 13:30:12 Problem Notes None recorded. Medical Equipment None Reported. [...] 2nd Gen Pen Needle 32 gauge x /32 USE BEFORE MEALS AND AT BEDTIME active Not Available Not Available No t Available Vitals Date Recorded Oxygen saturation Oxygen saturation in Arterial blood by Pulse oximetry Heart rate Body temperature Systolic blood pressure Diastolic blood pressure Provider Name and Address Organization Details Last Updated DateTime 3 98 % 98 % 82 /min 98.2 [degF] 165 mm[Hg] 103 mm[Hg] Not Available [facility] 3 13:29:41 Date Recorded Oxygen saturation Oxygen saturation in Arterial blood by Pulse oximetry Heart rate Respiratory rate Body temperature Systolic blood pressure Diastolic blood pressure Provider Name and Address Organization Details Last Updated DateTime 3 98 % 98 % 88 /min 20 /min 98.1 [degF] 141 mm[Hg] 64 mm[Hg] Not Available [facility] 3 13:29:41 Date Recorded Oxygen saturation Oxygen saturation in Arterial blood by Pulse oximetry Heart rate Respiratory rate Body temperature Systolic blood pressure Diastolic blood pressure Provider Name and Address Organization Details Last Updated DateTime 3 97 % 97 % 76 /min 20 /min 97.8 [degF] 124 mm[Hg] 61 mm[Hg] Not Available [facility] 3 13:29:41 Date Recorded Heart rate Respiratory rate Oxygen saturation Oxygen saturation in Arterial blood by Pulse oximetry Systolic blood pressure Diastolic blood pressure Provider Name and Address Organization Details Last Updated DateTime 3 74 /min 18 /min 98 % 98 % 161 mm[Hg] 92 mm[Hg] Karli RAMÍREZ [facility] 3 15:51:43 Social History Question Answer Notes LastModified by Organization Details LastModified Time Tobacco Smoking Status Former Smoker Not Available [facility] 05/16/2022 13:29:33 Do You Have An Advance Directive? No [id number] Information not available 05/16/2022 Are You Blind Or Do You Have Difficulty Seeing? Yes Cataracts [id number] Information not available 05/16/2022 What Is Your Code Status? Full Code [id number] Information not available 05/16/2022 In The 14 Days Before Symptom Onset, Have You Had Close Contact With A Laboratory-conf irmed COVID-19 While That Case Was Ill? No [email or web address].0301 [id number] Information not available 05/16/2022 In The 14 Days Before Symptom Onset, Have You Had Close Contact With A Person Who Is Under Investigation For COVID-19 While That Person Was Ill? No [id number].0301 [id number] Information not available 05/16/2022 Are You Deaf Or Do You Have Serious Difficulty Hearing? Yes [employer] MIGRATION.0301 467802 Information not available 05/16/2022 What Type Of Diet Are You Following? DIABETIC MIGRATION.0301 460482 Information not available 05/16/2022 When Did You Quit Smoking? 16+yearssincelastc igarette [id number].0301 [id number] Information not available 05/16/2022 Where Do You Live? [place]House MIGRATION.0301 466084 Information not available 05/16/2022 Are You Following A Low Salt Diet? No MIGRATION.0301 255369 Information not available 05/16/2022 Do You Have A Medical Power Of Toilet Products Molder? No MIGRATION.0301 540291 Information not available 05/16/2022 Have You Recently Traveled Abroad? No MIGRATION.0301 438123 Information not available 05/16/2022 Do You Have Difficulty Walking Or Climbing Stairs? No MIGRATION.0301 518533 Information not available 05/16/2022 Do You Have Any Dietary Restrictions? Yes MIGRATION.0301 440290 Information not available 05/16/2022 Sex: Unknown Functional Status Question Answer Note LastModified by Organizat ion Details LastModified Time Do you or have you ever used any other forms of tobacco or nicotine? No [id number].316391 3027 Information not available 05/16/2022 Do you have transportation difficulties? No [id number].[id number] 8507 Information not available 05/16/2022 Are you able to walk? YESWOREST MIGRATION.016270 8102 Information not available 05/16/2022 Do you have difficulty doing errands alone? Yes [id number].249789 8172 Information not available 05/16/2022 Are you able to care for yourself? Yes help from MIGRATION.889737 1876 Information not available 05/16/2022 Do you have difficulty dressing or bathing? Yes MIGRATION.810376 4077 Information not available 05/16/2022 What is your exercise level? None MIGRATION.273844 2422 Information not available 05/16/2022 Mental Status Question Answer Note LastModified by Organizat ion Details LastModified Time Do you have difficulty concentrating, remembering or making decisions? No [id number] Information not available 05/16/2022 Family History Nothing Reported. Medical History Condition Response ARTHRITIS Y HEADACHES/MIGRAINES Y USE OF BLOOD THINNERS Y DIABETES, TYPE Y HYPERTENSION Y HIGH CHOLESTEROL / HYPERLIPIDEMIA Y Do you have a living will? N BLOOD CLOTS Y BACK / NECK PROBLEMS Y HAVE YOU BEEN HOSPITALIZED OR SEEN IN [facility] IN THE PAST YEAR ? Y STROKE/TIA Y Do you have Advance directive? N FOOT PROBLEM Y Past Encounters Encounter ID Performer Location Encounter Start Date Encounter Closed Date Diagnosis/Indication Diagnosis SNOMED-CT Code Diagnosis ICD10 Code Diagnosis Note [id number] [facility] [address] [place] [address] 04/18/2022 00:00:00 04/18/2022 14:42:29 [id number] [facility] [address] [place] [address] 04/25/2022 00:00:00 04/25/2022 11:55:07 [id number] [facility] [address] [place] [address] 05/02/2022 00:00:00 05/02/2022 16:23:34 [id number] [facility] [place] [address] [place] [address] 06/04/2022 15:43:36 06/05/2022 13:55:26 Postoperative care [id number] Z48.89 2nd left toe amputation healedCont inued [...] Prince Member ID Guarantor Name 06/04/2022 1 [facility] (MEDICARE REPLACEMENT/A DVANTAGE - PPO) [id number] Ernesto Garvey [id number] Ernesto Garvey 06/04/2022 2 [place] [facility] Ernesto Garvey [id number] Ernesto Garvey Notes Date Note Type Note Provider Name and Address Organization Details Recorded Time 06/04/2022 text/html . Patient is a 67-year-old male who returns the office for follow-up on amputation of the 2nd toe. Patient is completely healed denies any new problems. Patient denies any other pedal complaints. Edmundo Lira DPM [address] [place] [address], [place], [address], [facility] [employer] 06/04/2022 16:10:46
--- OUTSIDE RECORDS SUMMARY | 2024-08-12 12:16 | XMS_ITS | CONTINUITY OF CARE DOCUMENT ---
Author Name shannan chairichie Address Unknown Organization [facility] Address [address] [place] [address] Phone [phone] Care Team Providers Care Lead Database Administrator Name Role Phone Aletha AGUILAR, Tomy Unavailable GUNJAN AGUILAR, FAYE Unavailable FAYE HOLLINS MD Unavailable PROBLEMS Condition Status Date Provider Notes Cardiology examination active Laisha Ventim iglia DICE MANAGER Cerebrovascular Disease active Laisha Venti miglia DICE MANAGER (History of) Coronary Heart Disease active Laisha Ventim iglia DICE MANAGER Diabetes, Type 2 active Laisha Ventimiglia DICE MANAGER Hyperlipidemia active Laisha Ventimiglia FN P Hypertension active Laisha Ventimiglia DICE MANAGER Peripheral artery disease active Laisha Santino timiglia DICE MANAGER Carotid artery stenosis active Laisha Venti miglia DICE MANAGER Leg pain, bilateral active Tomy Pompa MD Carotid bruit, bilateral active Tomy mckenna MD ENCOUNTERS Date Type Provider Location Encounter Diag nosis - In-person encounter Office Visit Tomy Pompa MD [place] [facility] - In-person encounter Office Visit Tomy Pompa MD [place] [facility] Leg pain, bilateralCarotid bruit, bilateral - In-person encounter Office Visit Tomy Pompa MD [place] [facility] Cardiology examinationCerebrovascular DiseaseCoronary Heart DiseaseDiabetes, Type [...] active USE FOUR TIMES DAILY WITH INSULIN Marichuy Salomon fenofibrate 160 mg tablet active Take [...] NP drug use no Laisha Ventimig asia DICE MANAGER alcohol use no Laisha Ventimig asia DICE MANAGER smoking history, total pack/day 3 Marichuy Salomon passive cigarette smoke exposure no Marichuy Salomon chewing tobacco use Never Marichuy Raul rosenthal cigarette use yes Marichuy Salomon smoking status Former smoker Marichuy Salomon FUNCTIONAL STATUS Date Observation Value Provider HRA, CV Assess/Plan, Angina (inactive) Management Plan continue current therapy Tomy Pompa MD HRA, CV Assess/Plan, Angina (inactive) Management Plan continue current therapy Eilse Aranda NP HRA, CV Assess/Plan, Angina (inactive) Management Plan continue current therapy Laisha Ventimiglia [facility] INSURANCE PROVIDERS Payer name Policy type / Coverage type [place] red democrat ID [facility] Other [facility] [id number] (PPO C-SNP) Commercial insurance company [id number] [employer] Medicaid 4 [id number] ADVANCE DIRECTIVES Name Date DISCUSSED - NO DECISION MADE TREATMENT PLAN Date Name Performer [id number],C, H is updated medication list for this problem includes: Aspirin 81 Mg Tablet,delayed Release (dr/ec) (Aspirin) ..... Take 1 tablet by mouth once a day Lantus U-100 Insulin 100 Unit/ml Solution (Insulin glargine) ..... 10 unit subcutaneously twice a day Humalog Feroz Kwikpen U-100 100 Unit/ml Insulin Pen, Half-unit (Insulin lispro) Jardiance 10 Mg Tablet (Empagliflozin) Losartan 50 Mg Tablet (Losartan) [facility] [id number],C,with stent to rt carotid [facility] [id number],C,c ontrolled H is updated medication list for this problem includes: Aspirin 81 Mg Tablet,delayed Release (dr/ec) (Aspirin) ..... Take 1 tablet by mouth once a day Carvedilol 12.5 Mg Tablet (Carvedilol) Losartan 50 Mg Tablet (Losartan) [facility] [id number],C,P atient has non-healing ulcerations and discoloration of 4th and 2nd digit of left foot and 4th digit of rt foot. Remains on IV abx for osteomyelitis. He reports abnormal YONG at [facility] will repeat to determine need for angiogram. His distal pulses are not palpable at DP and feet cool to touch. Will await YONG H is updated medication list for this problem includes: Aspirin 81 Mg Tablet,delayed Release (dr/ec) (Aspirin) ..... Take 1 tablet by mouth once a day Clopidogrel 75 Mg Tablet (Clopidogrel) [facility] [id number],C,w ith CABG x 4. Follows with Dr. Castano at [facility]. H is updated medication list for this problem includes: Aspirin 81 Mg Tablet,delayed Release (dr/ec) (Aspirin) ..... Take 1 tablet by mouth once a day Carvedilol 12.5 Mg Tablet (Carvedilol) Clopidogrel 75 Mg Tablet (Clopidogrel) Laisha Ponce [facility] Cardiology: H is updated medication list for [...] x 4. Follows with Dr. Castano at [facility]. Tomy Pompa MD Cardiology:was last seen in [...] left tibial arteries with biphasic flow. Elise Aranad PPAP COORDINATOR Cardiology Elise Aranda PPAP COORDINATOR Cardiology: H is updated medication list for this problem includes: Aspirin 81 Mg Tablet,delayed Release (dr/ec) (Aspirin) ..... Take 1 tablet by mouth once a day Lantus U-100 Insulin 100 Unit/ml Solution (Insulin glargine) ..... 10 unit subcutaneously twice a day Humalog Feroz Gustavo U-100 100 Unit/ml Insulin Pen, Half-unit (Insulin lispro) Jardiance 10 Mg Tablet (Empagliflozin) Losartan 50 Mg Tablet (Losartan) [facility] Cardiology:with stent to rt sung tid [facility] Cardiology:controlle d H is updated medication list for this problem includes: Aspirin 81 Mg Tablet,delayed Release (dr/ec) (Aspirin) ..... Take 1 tablet by mouth once a day Carvedilol 12.5 Mg Tablet (Carvedilol) Losartan 50 Mg Tablet (Losartan) [facility] Cardiology:Patient h as non-healing ulcerations and discoloration of 4th and 2nd digit of left foot and 4th digit of rt foot. Remains on IV abx for osteomyelitis. He reports abnormal YONG at [facility] will repeat to determine need for angiogram. His distal pulses are not palpable at DP and feet cool to touch. Will await YONG H is updated medication list for this problem includes: Aspirin 81 Mg Tablet,delayed Release (dr/ec) (Aspirin) ..... Take 1 tablet by mouth once a day Clopidogrel 75 Mg Tablet (Clopidogrel) [facility] Cardiology:with CABG x 4. Follows with Dr. Castano at [facility]. H is updated medication list for this problem includes: Aspirin 81 Mg Tablet,delayed Release (dr/ec) (Aspirin) ..... Take 1 tablet by mouth once a day Carvedilol 12.5 Mg Tablet (Carvedilol) Clopidogrel 75 Mg Tablet (Clopidogrel) Laisha Tatykennethmark DICE MANAGER Date Name Arterial - SENSILASE Arterial Duplex Bi-L ower EX HISTORY OF PROCEDURES Procedure Date Procedure Name Provider Procedure Notes S tatus Complex e/m visit add on Tomy Pompa MD completed EKG Tomy Pompa MD completed EKG Tomy Pompa MD completed
[2024-08-12 12:46] LABS: Alanine Aminotransferase 25 U/L (6-50); Albumin Level 4.4 g/dL (3.5-5.1); Alkaline Phosphatase 85 U/L (38-126); Anion Gap 11 mmol/L (4-12); Aspartate Amino Transferase 31 U/L (17-59); Bilirubin,Total 0.6 mg/dL (0.2-1.3); Blood Urea Nitrogen 25 mg/dL (9-20); Calcium 9.1 mg/dL (8.4-10.2); Carbon Dioxide 22 mmol/L (22-30); Chloride 108 mmol/L (98-107); Estimated Glomerular Filt Rate > 60; Glucose 110 mg/dL (65-110); Potassium 4.4 mmol/L (3.4-5.0); Sodium 141 mmol/L (137-145)
[2024-08-12 12:48] LABS: Hemoglobin A1C 8.4 % (<5.7)
[2024-08-12 12:59] LABS: Creatinine Urine 125.9 mg/dL
[2024-08-12 13:04] LABS: MALB Creatinine Ratio 19.7 mg/g (0-30); Microalbumin Urine Random 24.8 mg/L (0-16.7)
== END 2024-08-12 12:13 | disposition home or self-care (01) ==
PROVIDERS: PCP Family Medicine; Visit Provider Student in an Organized Health Care Education/Training Program
DX: M19.011 Primary osteoarthritis, right shoulder (principal); I10 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) hypertension; E11.42 Type 2 diabetes mellitus with diabetic polyneuropathy; E11.610 Type 2 diabetes mellitus with diabetic neuropathic arthropathy; Z79.4 Long term (current) use of insulin
CPT/HCPCS: 36415; 73030; 80053; 82043; 83036

== ENCOUNTER 2025-01-20 08:30 | Outpatient (CLI) | payer MEDICARE, SELFPAY ==
--- OUTSIDE RECORDS SUMMARY | 2025-01-20 08:43 | XMS_ITS | Clinical Summary ---
Author Organization [facility] [address] Address [address] [place] [address] Care Team Providers Care Lap Machine Tender Name Role Phone Bonnie Marie MD Primary Care Provider Matthew Castano Shirley DO Unavailable [phone] Allergies No known active allergies Medications fenofibrate [...] tablet (10 mg total) by mouth daily Active HYDROcodone-nakul taminophen (NORCO) 10-325 mg per [...] (02/21/2021): Added automatically from request for surgery [id number] Coronary artery disease of n ative heart with stable angina pectoris 05/26/2019 Overview (05/26/2019): Added automatically from request for surgery [id number] Cerebrovascular accident (CV A) due to occlusion of cerebral artery 10/29/2017 Surgical History Surgery Date Site/Laterality Comments ROTATOR CUFF REPAIR Right CARPAL TUNNEL RELEASE Bilateral MANDIBLE FRACTURE SURGERY CAROTID STENT Right EXCHANGE PICC LINE 01/23/2022 Left CORONARY ARTERY BYPASS GRAFT AMPUTATION Left 2nd toe Medical History Medical History Date Comments DISH (diffuse idiopathic skeletal hyperostosis) Stroke (HCC) Type 2 diabetes mellitus Coronary artery disease Hyperlipidemia Hypertension Arthritis Cataract [...] Answered Comments:30+ years ago Social Connection and Isolation Panel Answer Date Recorded In a typical week, how many times do you talk on the phone with family, friends, or neighbors? More than three times a week 08/15/2022 How often do you get togethe r with friends or relatives? More than three times a week 08/15/2022 Attends [employer] Services Not on file 08/15 Active Member [...] place to sleep or slept in a nursing home (including now)? No 08/15/2022 Personal Safety Answer Date Recorded Have you ever been in or are you currently in a harmful physical or emotional relationship or is someone making you feel afraid or unsafe? Denies 08/14/2022 Sex and Gender Information Value Date Recorded Sex Assigned at Not on file Legal Sex Male 3:42 AM CHARTERED WEALTH MANAGER Gender Identity Not on file Sexual [...] Additional history exists Covid-19 Vaccine (3 - 2024-2 6 season) 2024 05/18/2020, 04/20/2020 Influenza Vaccine (#1) 2024 01/09/2019, 2017 Medical Devices Implanted Type Area Display Screen Fabricator Device Identifier Shelf Expiration Date Model / Serial / Lot TerPenny [employer] Medical Deondre Angio-Seal Vip 6fr Closere Device [id number] - [id number] Implanted:Qty: 1 on 08/14/2022 by Jesse Chakraborty MD at [facility] Collagen Right: Common Femoral Artery Terumo Medical Deondre 12/15/2022 [id number] / / [id number] Ernst Vascular [id number] Acculink Od6 Mm; Odsec8 Fr L30 Mm L100 Cm Self Expandable; Rapid - [id number] Implanted:Qty: 1 on 03/07/2021 by Jesse Chakraborty MD at [facility] Stent Right: Carotid [employer] 07/15/2022 [id number] / / [id number] [place] Scientific Deondre Stent Coronary Drug Eluting Rapid Exchange Synergy Megatron 5.27a54ku [place] Chromium [id number] - [id number] Implanted:Qty: 1 on 08/14/2022 by Jesse Chakraborty MD at [facility] Stent Right: Internal Carotid Artery [place] [employer] Deondre 08/15/2022 [id number] / / [id number] [place] [employer] Deondre Stent Drug Eluting S Megatron Us Mr 5.56d17zd [id number] - [id number] Implanted:Qty: 1 on 08/14/2022 by Jesse Chakraborty MD at [facility] Stent Right: Internal Carotid Artery [place] [employer] Deondre 01/03/2023 [id number] / / [id number] DaiWhispering [place] Deondre [id number] Device Closure Angio-Seal Vip Bondek-Plus Polyglyd L70 Cm Od6 Fr Odsec.035 In Vascular - [id number] Implanted:Qty: 1 on 03/07/2021 by Jesse Chakraborty MD at [facility] Right: Groin FTBpro Deondre 11/15/2021 [id number] / / [id number] [place] AutoSpot Mynxgrip 5fr Balloon Catheter Integrate Sealant Lock Latex Free [id number] - [id number] Implanted:Qty: 1 on 07/10/2022 by Jesse Chakraborty MD at [facility] 04/17/2023 [id number] / / [id number] Explanted Type Area Display Screen Fabricator Device Identifier Shelf Expiration Date Model / Serial / Lot Ernst Vascular [id number] Emboshield Nav6 2.5-4.8mm 5-6fr 190cm Guidewire Radiopaque - [id number] Explanted:Qty : 1 on 03/07/2021 at [facility] Aneurysm Coils Right: Carotid [employer] [id number] 10/16/2023 [id number] / / [id number] Procedures Procedure Name Priority Date/Time Associated Diagnosis Comments EGFR Routine 08/15/2022 3:32 AM CDT HEMOGLOBIN A1C Routine 02/15/2021 11:43 AM CHARTERED WEALTH MANAGER Preop testing from Last 3 Months [...] ORDERABLES Final Res ult Performing Organization Address [facility] Co de Phone Number SAVANNAH SIFUENTES [address] [place] [address] * (ABNORMAL) Hemoglobin A1c (02/15/2021 11:43 AM CHARTERED WEALTH MANAGER) Hgb A1C 7.9(H) 4.0 - 5.6 % SAVANNAH SIFUENTES Estimated Average Glucose 180 mg/dL SAVANNAH SIFUENTES Comment: The ADA recommends reporting an estimated Average Glucose (eAG) with all Hemoglobin A1c results using the equation derived from a study of 507 normal and diabetic adults. Minority populations were underrepresented and children were not included. (Diabetes Care 31:4302-9345, 2008). The eAG is not equivalent to a fasting glucose. Blood 02/15/2021 11:4 3 AM CHARTERED WEALTH MANAGER 02/16/2021 7:46 AM CHARTERED WEALTH MANAGER us Herber Reed MD LAB BLOOD ORDERABLES Final R esult Performing Organization Address City/[facility] Co de Phone Number SAVANNAH SIFUENTES [address] [place] [address] from Last 3 Months or Most Recently Relevant to Health Maintenance Insurance [facility] HMO/PPO Address: [address] [address] [place] [address] MEDICARE [facility] IDPA [facility] MEDICARE ADVANTAGE [facility] MEDICARE Address: [address] [address] [place] [address] [facility] IDPA [facility] MEDICARE ADVANTAGE [facility]IC[facility] Address: [address] [address] [place] [address] Advance Directives For more information, please contact: [phone] * Full Code (Latest Code Status on [...] 8:19 AM 04/17/2021 4:19 PM Care Teams Lap Machine Tender Relationship Specialty Start Date End Date Bonnie Marie MD [address] [place] [address] PCP - General Family Medicine 04/09/19 Matthew Castano DO [address] [place] [address] Referring Physician Internal Medicine 05/20/21
--- OUTSIDE RECORDS SUMMARY | 2025-01-20 08:43 | XMS_ITS | Clinical Summary ---
Author Organization [facility] Address [address] [place] [address] Care Team Providers Care Supervisor Malt House Name Role Phone Bonnie Marie MD Primary Care Provider [phone] Allergies Active Allergy Reactions Criticality Noted Date [...] needed for Pain. 80mg PRN Active Immunizations Immunization Administration Dates Next Due MODERNA COVID-19 (12+) [...] 86 11/08/2022 12:19 AM CDT Temperature 36.8 C (98.3 F) 11/08/2022 12:19 AM CDT Respiratory Rate 18 11/08/2022 12:19 AM CDT Oxygen Saturation 98% 11/08/2022 12:19 AM CDT Inhaled Oxygen Concentration - - Weight 86.2 kg (190 lb) 11/08/2022 12:19 AM CDT Height 175.3 cm (5' 9) 11/08/2022 12:19 AM CDT Body Mass Index 28.06 11/08/2022 12:19 AM CDT Plan of Treatment Health Maintenance Due Date Last Done Comments Colorectal Cancer Screening Colonoscopy (10 Years) 1954 Hepatitis C 1972 DTaP, Tdap and Td Vaccines ( 1 - Tdap) 1973 Pneumococcal Vaccine: 50+ Years (1 of 1 - PCV) 2004 Zoster Vaccines (1 of 2) 2004 Annual Medicare Wellness Visit 2019 COVID-19 Vaccine (3 - 2024-2 6 season) 2024 05/18/2020, 04/20/2020 Influenza Adult (#1) 2024 RSV Immunization or 60+ Years (1 - 1-dose 75+ series) 2029 Hepatitis A Vaccines Aged Out No long er eligible based on patient's age to complete this topic Meningococcal B Vaccine Aged Out No l onger eligible based on patient's age to complete this topic Meningococcal Vaccine Aged Out No kit barbara eligible based on patient's age to complete this topic RSV Immunizations Under 20 Months Aged Out No longer eligible b ased on patient's age to complete this topic Insurance [facility] MEDICARE MEDICAID Care Teams Supervisor Malt House Relationship Specialty Start Date End Date Bonnie Marie MD [address] [facility] [address] [address] [place] [address] PCP - General FAMILY PRACTICE 03/30/19
--- OUTSIDE RECORDS SUMMARY | 2025-01-20 08:43 | XMS_ITS | Clinical Summary ---
Author Organization [facility] Address [address] [place] [address] Care Team Providers Care Assistant Track And Field Coach Name Role Phone Bonnie Marie MD Primary Care Provider + Source Comments [facility],non-owned Affiliates and Associated Physician Practices is amultiple site organization consisting of ambulatory clinics and hospital sitesin [place], [place], [place] and [place]. This disclosure is being madepursuant to the Care Everywhere program and may not contain all information available regarding this patient. Last updated 17.[facility] Allergies No known active allergies Medications * Be aware that medications may not be up to date on this document. Always verify current medications with the patient. 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 Gender Identity Not on file Sexual Orientation Not on file Last Filed Vital Signs Vital Sign Reading Time Taken Comments Blood Pressure 134/75 02/28/2018 10:48 AM COMPUTER LAB ASSISTANT Pulse 72 02/28/2018 10:48 AM COMPUTER LAB ASSISTANT Temperature 36.4 C (97.6 F) 02/28/2018 10:48 AM COMPUTER LAB ASSISTANT Respiratory Rate 18 10/31/2017 4:26 PM CDT Oxygen Saturation 95% 11/25/2017 2:17 PM CDT Inhaled Oxygen Concentration - - Weight 89.8 kg (198 lb) 02/28/2018 10:48 AM COMPUTER LAB ASSISTANT Height 175.3 cm (5' 9) 02/28/2018 10:48 AM COMPUTER LAB ASSISTANT Body Mass Index 29.24 02/28/2018 10:48 AM COMPUTER LAB ASSISTANT Plan of Treatment Health Maintenance Due Date [...] 10/31/2020 8, 10/31/2017, 10/31/2017, Additional history exists DEPRESSION SCREENING 03/18/2024 COVID-19 VACCINE ( season) 2024 INFLUENZA VACCINE (#1) 2024 Respiratory Syncytial Virus (RSV) Vaccine Pt: [...] 7 - 26 mg/dL 10/31/2017 7:14 AM [facility] Creatinine 0.7 0.6 - 1.2 mg/dL 10/31/2017 7:14 AM [facility] Sodium 140 136 - 145 mmol/L 10/31/2017 7:14 AM [facility] Potassium 4.1 3.5 - 4.5 mmol/L 10/31/2017 7:14 AM [facility] Chloride 108(H) 98 - 107 mmol/L 10/31/2017 7:14 AM [facility] CO2 23 22 - 29 mmol/L 10/31/2017 7:14 AM [facility] Glucose 134(H) 70 - 115 mg/dL 10/31/2017 7:14 AM [facility] Calcium 9.0 8.4 - 10.2 mg/dL 10/31/2017 7:14 AM [facility] Anion Gap 13 8 - 18 10/31/2017 7:[facility] 21 7 - 23 10/31/2017 7:14 AM [facility] Osmolality Calculated 293 270 - 300 mOsm/kg 10/31/2017 7:14 AM [facility] eGFR >60 >60 mL/min/1.7 3 m2 10/31/2017 7:14 AM [facility] Blood BLOOD SPECIMEN / Unknown Lab Venipuncture / Unknown 10/31/2017 6:29 AM CDT 10/31/2017 6:40 AM T us Maxime Dozier MD LAB - CHEMISTRY ORDERABLES Final Result [facility] [address] [phone] from Last 3 Months or Most Recently Relevant to Health Maintenance Insurance [facility] CARE CARE Advance Directives * Full Code (Latest Code Status on File) Date Activated Date Inactivated Comments 10/29/2017 2:27 PM 10/31/2017 7:51 PM * Full Code Date Activated Date Inactivated Comments 10/29/2017 7:22 AM 10/29/2017 2:27 PM Care Teams Assistant Track And Field Coach Relationship Specialty Start Date End Date Bonnie Marie MD [address] [place], [place] [id number] PCP - General 11/07/17
[2025-01-20 09:30] LABS: Hematocrit 39.5 % (42.0-52.0); Hemoglobin 12.8 g/dL (14.0-18.0); Immature Granulocyte Percent A 0.4 % (0-0.5); Lymphocytes Absolute Auto 1.49 K/mm3 (0.9-3.2); Mean Corpuscular HGB Conc 32.4 g/dl (32-36); Mean Corpuscular Hemoglobin 29.4 pg (26-34); Mean Corpuscular Volume 90.8 fl (80-100); Nucleated Red Blood Cells Absolute Auto 0.000 K/mm3 (0.0-0.012); Nucleated Red Blood Cells Perc 0.0 % (0.0-0.2); Platelet Count Result 245 k/mm3 (150-375); Red Blood Count 4.35 M/mm3 (4.6-6.20); White Blood Count 7.0 K/mm3 (4.5-10.0)
[2025-01-20 09:49] LABS: Alanine Aminotransferase 21 U/L (6-50); Albumin Level 4.1 g/dL (3.5-5.1); Alkaline Phosphatase 82 U/L (38-126); Anion Gap 9 mmol/L (4-12); Aspartate Amino Transferase 28 U/L (17-59); Bilirubin,Total 0.6 mg/dL (0.2-1.3); Blood Urea Nitrogen 17 mg/dL (9-20); Calcium 8.4 mg/dL (8.4-10.2); Carbon Dioxide 22 mmol/L (22-30); Chloride 109 mmol/L (98-107); Cholesterol 98 mg/dL (0-200); Estimated Glomerular Filt Rate > 60; Glucose 133 mg/dL (65-110); HDL Direct 38 mg/dL; Potassium 3.7 mmol/L (3.4-5.0); Sodium 140 mmol/L (137-145); Total Protein 7.1 g/dL (6.3-8.2); Triglycerides 82 mg/dL (<150)
[2025-01-20 13:39] LABS: Hemoglobin A1C 6.7 % (<5.7)
== END 2025-01-20 08:31 | disposition home or self-care (01) ==
LOC: ANHLAB 08:31
PROVIDERS: PCP Family Medicine; Visit Provider Student in an Organized Health Care Education/Training Program
DX: E78.5 Hyperlipidemia, unspecified (principal); I10 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) hypertension; Z79.4 Long term (current) use of insulin; E11.610 Type 2 diabetes mellitus with diabetic neuropathic arthropathy
CPT/HCPCS: 36415; 80053; 80061; 83036; 85025